=== PATIENT | female | born 1950 | race Two or more races ===

== ENCOUNTER 2021-04-09 14:26 | Inpatient (IN) | payer MEDICARE ==
[~2021-04-09] VITALS: Ht 160 cm; Wt 126.5 kg
[2021-04-09 16:04] LABS: Basophils # (auto) 0.1 10 ^3/uL (0-0.2); Eosinophils # (auto) 0 10 ^3/uL (0-0.8); Eosinophils % (auto) 0.2 % (0.0-7.0); Mean Corpuscular Volume 79.6 fL (80.0-100.0); Monocytes # (auto) 0.2 10 ^3/uL (0-1.3); Neutrophils # (auto) 6.5 10 ^3/uL (1.6-8.6)
[2021-04-09 16:05] LABS: Basophils % (auto) 0.7 % (0.0-2.0); Hematocrit 40.8 % (36.0-46.0); Hemoglobin 13.1 g/dL (12.2-16.2); Lymphocytes # (auto) 0.9 10 ^3/uL (0.4-5.4); Lymphocytes % (auto) 12.2 % (10.0-50.0); Mean Corpuscular Hemoglobin 25.6 pg (28.0-32.0); Mean Corpuscular Hgb Conc. 32.2 g/dL (32.0-36.0); Monocytes % (auto) 2.6 % (0.0-12.0); Neutrophils % (auto) 84.3 % (37.0-80.0); Red Blood Cells 5.13 10^6/uL (4.0-5.20); Red Cell Distribution Width 14.9 % (11.8-14.3); White Blood Cell 7.8 10^3/uL (4.4-10.8)
[2021-04-09 16:20] LABS: Albumin 3.3 g/dL (3.4-5.0); BUN/Creatinine Ratio 15.6; Calcium 9.3 mg/dL (8.5-10.1); Potassium 3.9 mmol/L (3.5-5.1)
[2021-04-09 16:25] LABS: Bilirubin, Total 1.1 mg/dL (0.2-1.0); Total Protein 7.4 g/dL (6.4-8.2)
[2021-04-09 20:12] LABS: Urine Bacteria NONE SEEN /hpf (None Seen); Urine Blood Negative /uL (Negative); Urine Specific Gravity 1.012 (1.001-1.035); Urine WBC 1 /hpf (0 - 5)
[2021-04-09] MEDS ORDERED: ALPRAZolam 0.25 MG TAB PO ONE (23:30)
[2021-04-10] MEDS ORDERED: NITROGLYCERIN 0.4 MG SL TAB SL PRN (03:15)
[2021-04-10] MEDS ORDERED: ONDANSETRON HCL 4 MG/2 ML VIAL IV PRN (03:15)
[2021-04-10] MEDS ORDERED: MORPHINE SULFATE INJECTION 2 MG/ML SYRG IV PRN (03:15)
[2021-04-10] MEDS ORDERED: DOCUSATE SOD 100 MG CAP PO PRN (03:15)
[2021-04-10] MEDS ORDERED: MORPHINE SULFATE 4 MG/ML SYR/VIAL IV PRN (03:15)
[2021-04-10] MEDS ORDERED: ACETAMINOPHEN 325 MG TAB PO PRN (03:15)
[2021-04-10 04:45] VITALS: BP 139/71
[2021-04-10 05:00] VITALS: BP 139/71
[2021-04-10] MEDS ORDERED: HYDR25TA4 PO (05:56)
[2021-04-10] MEDS ORDERED: PAR20T PO (05:56)
[2021-04-10] MEDS ORDERED: HYDR-4072 PO (05:56)
[2021-04-10] MEDS ORDERED: MELO1TAB73 PO (05:56)
[2021-04-10] MEDS ORDERED: LEVO125T7 PO (05:56)
[2021-04-10] MEDS ORDERED: PREG50CA PO (05:56)
[2021-04-10] MEDS ORDERED: LISI20TA28 PO (05:56)
[2021-04-10] MEDS ORDERED: ATO40T PO (05:56)
[2021-04-10] MEDS ORDERED: METH750T22 PO (05:56)
[2021-04-10] MEDS ORDERED: FLUT44AE IN (05:57)
[2021-04-10] MEDS ORDERED: NAPR-759 PO (05:57)
[2021-04-10] MEDS ORDERED: ALBU108A5 IN (05:57)
[2021-04-10] MEDS ORDERED: HYDR-4622 PO (05:57)
[2021-04-10 08:00] VITALS: BP 126/75
[2021-04-10] MEDS: ENOXAPARIN SOD 40 MG/0.4 ML SYRINGE SC SCH (08:45)
[2021-04-10] MEDS: ASPirin 81 mg TAB PO SCH (08:45)
[2021-04-10] MEDS: FAMOTIDINE (10MG/ML) 2ML VL IV SCH (08:45)
[2021-04-10 09:13] LABS: Basophils # (auto) 0.1 10 ^3/uL (0-0.2); Basophils % (auto) 1.4 % (0.0-2.0); Eosinophils # (auto) 0.1 10 ^3/uL (0-0.8); Hematocrit 38.4 % (36.0-46.0); Hemoglobin 12.4 g/dL (12.2-16.2); Lymphocytes # (auto) 2.4 10 ^3/uL (0.4-5.4); Lymphocytes % (auto) 26.1 % (10.0-50.0); Mean Corpuscular Hemoglobin 25.8 pg (28.0-32.0); Mean Corpuscular Hgb Conc. 32.4 g/dL (32.0-36.0); Mean Corpuscular Volume 79.5 fL (80.0-100.0); Monocytes # (auto) 0.7 10 ^3/uL (0-1.3); Monocytes % (auto) 7.6 % (0.0-12.0); Neutrophils # (auto) 5.8 10 ^3/uL (1.6-8.6); Neutrophils % (auto) 63.9 % (37.0-80.0); Red Blood Cells 4.83 10^6/uL (4.0-5.20); White Blood Cell 9.1 10^3/uL (4.4-10.8)
[2021-04-10 09:28] LABS: Calcium 8.8 mg/dL (8.5-10.1); Potassium 3.4 mmol/L (3.5-5.1)
[2021-04-10 09:34] LABS: BUN/Creatinine Ratio 16.3; Bilirubin, Total 0.8 mg/dL (0.2-1.0); Total Protein 6.8 g/dL (6.4-8.2)
[2021-04-10 12:00] VITALS: BP 114/58
[2021-04-10 16:00] VITALS: BP 165/84
[2021-04-10] MEDS ORDERED: LISINOPRIL 20 MG TAB PO ONE (16:30)
[2021-04-10] MEDS ORDERED: hydrALAZINE HCL 20 MG/ML VL IV PRN (16:30)
[2021-04-10] MEDS: HYDROcodone-ACET 5/325MG TAB PO PRN ×2 (16:38→20:56)
[2021-04-10] MEDS: ATORVASTATIN 20 MG TAB PO SCH (20:56)
[2021-04-10 22:00] VITALS: BP 117/64
[2021-04-11 05:00] VITALS: BP 125/81
[2021-04-11] MEDS: HYDROcodone-ACET 5/325MG TAB PO PRN ×3 (05:54→21:42)
[2021-04-11 06:07] LABS: Basophils # (auto) 0.1 10 ^3/uL (0-0.2); Eosinophils # (auto) 0.2 10 ^3/uL (0-0.8); Mean Corpuscular Hgb Conc. 32.6 g/dL (32.0-36.0); Monocytes # (auto) 0.6 10 ^3/uL (0-1.3); Neutrophils # (auto) 5.1 10 ^3/uL (1.6-8.6)
[2021-04-11 06:09] LABS: Basophils % (auto) 1.3 % (0.0-2.0); Eosinophils % (auto) 2.2 % (0.0-7.0); Hematocrit 39.8 % (36.0-46.0); Lymphocytes # (auto) 2.2 10 ^3/uL (0.4-5.4); Lymphocytes % (auto) 27.3 % (10.0-50.0); Mean Corpuscular Hemoglobin 25.7 pg (28.0-32.0); Monocytes % (auto) 7.5 % (0.0-12.0); Neutrophils % (auto) 61.7 % (37.0-80.0); Red Blood Cells 5.03 10^6/uL (4.0-5.20); Red Cell Distribution Width 14.7 % (11.8-14.3); White Blood Cell 8.2 10^3/uL (4.4-10.8)
[2021-04-11 06:24] LABS: Calcium 8.9 mg/dL (8.5-10.1); Potassium 4.1 mmol/L (3.5-5.1)
[2021-04-11 06:30] LABS: Albumin 3.3 g/dL (3.4-5.0); Bilirubin, Total 1.2 mg/dL (0.2-1.0); Total Protein 6.6 g/dL (6.4-8.2)
[2021-04-11 08:00] VITALS: BP 134/77
[2021-04-11] MEDS: ENOXAPARIN SOD 40 MG/0.4 ML SYRINGE SC SCH (11:12)
[2021-04-11] MEDS: ASPirin 81 mg TAB PO SCH (11:12)
[2021-04-11] MEDS: FAMOTIDINE (10MG/ML) 2ML VL IV SCH (11:12)
[2021-04-11] MEDS: LISINOPRIL 20 MG TAB PO SCH (11:13)
[2021-04-11 12:00] VITALS: BP 121/67
[2021-04-11] MEDS ORDERED: ALPRAZolam 0.25 MG TAB PO PRN (12:00)
[2021-04-11 16:00] VITALS: BP 100/54
[2021-04-11] MEDS ORDERED: AZITHROMYCIN 250 MG TAB PO ONE (17:00)
[2021-04-11 18:58] LABS: Cholesterol 164 mg/dL (< 200); HDL Cholesterol 47 mg/dL (40-59); LDL Cholesterol 92 mg/dL (< 100); Triglycerides 190 mg/dL (< 150)
[2021-04-11] MEDS: ATORVASTATIN 20 MG TAB PO SCH (21:22)
[2021-04-11] MEDS: COLCHICINE 0.6 MG CAP PO SCH (21:22)
[2021-04-11 22:29] VITALS: BP 114/61
[2021-04-12 05:48] VITALS: BP 114/64
[2021-04-12 06:57] LABS: BUN/Creatinine Ratio 24.4; Calcium 8.5 mg/dL (8.5-10.1); Magnesium 1.8 mg/dL (1.6-2.6)
[2021-04-12 08:00] VITALS: BP 134/77
[2021-04-12 09:00] VITALS: BP 123/64
[2021-04-12] MEDS: AZITHROMYCIN 250 MG TAB PO SCH (09:07)
[2021-04-12] MEDS: COLCHICINE 0.6 MG CAP PO SCH ×2 (09:07→22:05)
[2021-04-12] MEDS: ASPirin 81 mg TAB PO SCH (09:07)
[2021-04-12] MEDS: ENOXAPARIN SOD 40 MG/0.4 ML SYRINGE SC SCH (09:08)
[2021-04-12] MEDS: LISINOPRIL 20 MG TAB PO SCH (09:08)
[2021-04-12] MEDS: HYDROcodone-ACET 5/325MG TAB PO PRN ×3 (09:09→22:06)
[2021-04-12] MEDS ORDERED: REGADENOSON 0.4 MG/5 ML SYRG IV ONE (09:15)
[2021-04-12 16:51] VITALS: BP 121/70
[2021-04-12] MEDS ORDERED: ERGOCALCIFEROL 50,000 UNIT(1.25MG) CAP PO SCH (18:30)
[2021-04-12 20:00] VITALS: BP 101/72
[2021-04-12] MEDS: ATORVASTATIN 20 MG TAB PO SCH (22:05)
[2021-04-12] MEDS: ONDANSETRON HCL 4 MG/2 ML VIAL IV PRN (22:06)
[2021-04-13 05:00] VITALS: BP 102/59
[2021-04-13 09:00] VITALS: BP 109/62
[2021-04-13] MEDS: ASPirin 81 mg TAB PO SCH (10:07)
[2021-04-13] MEDS: ENOXAPARIN SOD 40 MG/0.4 ML SYRINGE SC SCH (10:08)
[2021-04-13] MEDS: COLCHICINE 0.6 MG CAP PO SCH ×2 (10:08→21:35)
[2021-04-13] MEDS: LISINOPRIL 20 MG TAB PO SCH (10:08)
[2021-04-13] MEDS: AZITHROMYCIN 250 MG TAB PO SCH (10:08)
[2021-04-13 13:00] VITALS: BP 125/74
[2021-04-13] MEDS: ONDANSETRON HCL 4 MG/2 ML VIAL IV PRN ×2 (13:30→14:18)
[2021-04-13] MEDS ORDERED: ERGO1CAP23 PO (14:39)
[2021-04-13 16:52] VITALS: BP 119/65
[2021-04-13] MEDS: ATORVASTATIN 20 MG TAB PO SCH (21:35)
[2021-04-13 22:00] VITALS: BP 118/71
[2021-04-14 05:00] VITALS: BP 132/67
[2021-04-14 06:29] LABS: Potassium 4.1 mmol/L (3.5-5.1)
[2021-04-14 06:43] LABS: BUN/Creatinine Ratio 25.3
[2021-04-14 06:44] LABS: Calcium 8.7 mg/dL (8.5-10.1)
[2021-04-14 09:00] VITALS: BP 135/70
[2021-04-14] MEDS: ASPirin 81 mg TAB PO SCH (09:01)
[2021-04-14] MEDS: AZITHROMYCIN 250 MG TAB PO SCH (09:02)
[2021-04-14] MEDS: COLCHICINE 0.6 MG CAP PO SCH (09:03)
[2021-04-14] MEDS: LISINOPRIL 20 MG TAB PO SCH (09:03)
[2021-04-14] MEDS: ENOXAPARIN SOD 40 MG/0.4 ML SYRINGE SC SCH (09:06)
[2021-04-14 12:39] VITALS: BP 139/61
[2021-04-14] MEDS ORDERED: LOPERAMIDE 1 mg/7.5ml ORAL soln PO ONE (15:45)
[2021-04-14 16:21] VITALS: BP 129/55
[2021-04-14 17:35] VITALS: BP 135/70
[2021-04-15] MEDS ORDERED: LEVOTHYROXINE SODIUM 50 MCG TAB PO SCH (07:00)
[2021-04-15] MEDS ORDERED: LEVOTHYROXINE SODIUM 25 MCG TAB PO SCH (07:00)
== END 2021-04-14 18:20 | disposition home or self-care (01) | DRG 202 ==
LOC: ER 14:26 → TELE 04-10 03:01 → TELE-WESTW 04-10 04:40
PROVIDERS: ADMIT Nurse Practitioner Family; ATTEND Internal Medicine
DX: J40 Bronchitis, not specified as acute or chronic (principal); Z68.42 Body mass index [BMI] 45.0-49.9, adult; I31.3 Pericardial effusion (noninflammatory); K62.5 Hemorrhage of anus and rectum; E66.01 Morbid (severe) obesity due to excess calories; I10 Essential (primary) hypertension; E55.9 Vitamin D deficiency, unspecified; Z20.822 Contact with and (suspected) exposure to COVID-19; E11.9 Type 2 diabetes mellitus without complications; M79.7 Fibromyalgia; M19.90 Unspecified osteoarthritis, unspecified site; Z88.8 Allergy status to other drugs, medicaments and biological substances
CPT/HCPCS: 36415; 71045; 78452; 80048; 80053; 80061; 81001; 82270; 82306; 83036; 83735; 83880; 84439; 84443; 84484; 85025; 85652; 87426; 87493; 87804; 93005; 93017; 93306; 96372; 96374; G0378; J2405; J3490

== ENCOUNTER 2024-11-04 21:22 | Inpatient (IN) | payer MEDICARE ==
[~2024-11-04] VITALS: Ht 152.4 cm; Wt 114.0 kg
[~2024-11-04 21:22] MED LIST: ALBU108A5 IN; ATOR-507 PO; ERGO1CAP23 PO; FLUT44AE IN; HYDR-4072 PO; HYDR-4604 PO; HYDR25TA4 PO; LEVO125T7 PO; LISI20TA56 PO; MELO7.5T7 PO; METH-1182 PO; NAPR-759 PO; PAR20T PO; PREG50CA PO
[2024-11-04] MEDS: KETOROLAC TROMETH 30 MG/ML 1ML VIAL IV ONE (22:30)
[2024-11-04] MEDS: ACETAMINOPHEN IV 1000 MG/100ML (10MG/ML) IV ONE (22:30)
--- NOTE | 2024-11-04 22:42 | ED.PDOC ---
Musculoskeletal HPI Comments 74 year old female with a Hx of osteopenia and osteoporosis was BIBA for the c/c of a Mechanical Fall injury. Pt states that she was helping her [facility] when she tripped over his walker and fell on top of her right knee. Pt states that she felt her knee go "in and crack". Pt notes of no alleviating factors at this time, but notes of a worsening factor of movement. No other associated symptoms, modifiers, recent injuries or sick contacts present at this time. Chief Complaint: Fall Injury Time Seen by MD: 22:36 Reviewed Notes: Nurses Notes, Welder Assembler Notes, Medications, Allergies Allergies: Coded Allergies: Baclofen (Verified Allergy, Unknown, 04/09/21) Metformin (Verified Allergy, Unknown, 04/09/21) Home Meds Reported Medications Naproxen Sodium (ALEVE ARTHRITIS) 220 Mg Tab, 220 MG PO DAILYP PRN for PAIN SCALE 4-6 OR TEMP>100.4, TAB 04/10/21 Hydrocortisone Base (Hydrocortisone) 5 Mg Tab, 5 MG PO BID, TAB 04/10/21 Albuterol Sulfate (Albuterol Sulfate Hfa) 108 Mcg/Act Aer, 108 MCG IN PRN PRN for SHORTNESS OF BREATH, AER 04/10/21 Hydrocodone-Acetaminophen (Hydrocodone/Acetaminophen 10-325 mg) 1 Tab Tab, 1 TAB PO BID PRN for PAIN SCALE 7 THRU 10, TAB 04/10/21 Levothyroxine Sodium (Levothyroxine Sodium) 125 Mcg Tab, 125 MCG PO QAM for 30 Days, MCG 04/10/21 Hydrochlorothiazide (Hydrochlorothiazide) 25 Mg Tab, 1 TAB PO DAILY, #30 TAB 5 Refills 04/10/21 Lisinopril (Lisinopril) 20 Mg Tab, 20 MG PO DAILY for 30 Days, MG 04/10/21 Information Source: Patient, Emergency Med Personnel Mode of Arrival: EMS Location: Right Extremity Location: Knee Timing: Hours Prehospital treatment: Other ([facility]) Severity: Moderate Able to Move Extremity: No Bear Weight: No Pain: Severe Hand Dominance: Right Mechanism: Blunt Trauma, Compression Circumstances: Fall Onset of Symptoms: After Trauma Symptoms: Swelling, Pain, Erythema, Warmth DVT Risk Factors: NONE Last Tetanus: Unknown Associated signs and symptoms: Knee pain Vital Signs Vital Signs Date Time Temp Pulse Resp B/P (MAP) Pulse Ox O2 Delivery O2 Flow Rate FiO2 11/05/24 04:30 78 18 128/72 11/05/24 04:13 98.1 96 98.1 11/05/24 02:06 Room Air* 0 21 Physical Exam General: Awake, alert and oriented. No acute distress. Obese Skin: Skin in warm, dry and intact. Appropriate color for ethnicity. HEENT: The head is normocephalic and atraumatic. Conjunctivae are clear without exudates or hemorrhage. Sclera is non-icteric. EOM are intact. No signs of nystagmus. Eyelids are normal in appearance without swelling or lesions. Oral mucosa is pink and moist Neck: The neck is supple with normal range of motion. No JVD. Cardiac: Heart rate and rhythm are normal. No murmurs, gallops, or rubs are auscultated. Respiratory: No signs of respiratory distress. Lung sounds are clear in all lobes bilaterally without rales, rhonchi, or wheezes. Abdominal: Abdomen is soft, non-tender without distention, guarding or rigidity. Bowel sounds are present and normoactive in all four quadrants. Extremities: Deformity and Swelling the right knee. Pain upon palpitation . Good distal pulse and sensation. Neurological: The patient is awake, alert and oriented to person, place, and time with normal speech. Speech is clear. There is no facial asymmetry. Psychiatric: Appropriate mood and affect. Good judgement and insight. Review of Systems: REVIEW OF SYSTEMS: No fever, no chills, or fatigue HEENT: No sore throat, no earache, no congestion, no neck pain. Cardiac: No chest pain. No palpitations. Lungs: No shortness of breath, no cough. GI: No nausea, no vomiting, no diarrhea, no constipation, no abdominal pain : No dysuria, frequency, or urgency. No hematuria. Musculoskeletal: No joint pain , no joint swelling, no extremity edema. Right knee swelling with pain and surrounding erythema Skin: No rash, no itching. Neuro: No headache, no dizziness, no weakness Past Medical History PAST MEDICAL HISTORY: HTN Surgical History: Denies all surgeries CORE LOADER History: No Pertinent CORE LOADER History Family History Family History: Reviewed,noncontributory to illness, No family hx of Cancer, No family hx of DM, No family hx of Heart geovany, No family hx of HTN, No family hx ofKidney geovany, No family hx of Liver geovany, No family hx of Lung geovany, No family hx of Stroke Social History Smoker: Non-Smoker Alcohol: Denies ETOH Use Drugs: Denies Drug Use Lives In: Home Was a procedure done? Was a procedure done?: No Differential Diagnosis EXT Differential Diagnosis: Cellulitis, Deep Vein Thrombosis, Compartment Syndrome, Fracture, Sprain, Dislocation, Laceration, Contusion, Strain, Neurovascular injury, Arthritis, Other X-Ray, Labs, Meds, VS Vital Signs Date Time Temp Pulse Resp B/P (MAP) Pulse Ox O2 Delivery O2 Flow Rate FiO2 11/05/24 04:30 78 18 128/72 11/05/24 04:13 98.1 78 18 127/82 (97) 96 98.1 11/05/24 04:00 64 11/05/24 04:00 76 18 132/87 11/05/24 02:06 98.1 82 20 129/54 (79) 96 98.1 11/05/24 02:06 68 20 96 Room Air* 0 21 11/05/24 00:00 68 11/04/24 21:34 97.9 76 20 108/58 (75) 94 97.9 Lab Test 11/05/24 03:47 11/05/24 03:40 11/05/24 02:45 Range/Units Prothrombin Time 10.3 9.3-11.8 sec Prothrombin Time INR 0.97 0.9-1.15 Activated Partial Thromboplast Time 22.5 L 24.5-34.5 SEC White Blood Count 11.0 H 4.4-10.8 10^3/uL Red Blood Count 4.10 4.0-5.20 10^6/uL Hemoglobin 11.3 L 12.2-16.2 g/dL Hematocrit 34.2 L 36.0-46.0 % Mean Corpuscular Volume 83.4 80.0-100.0 fL Mean Corpuscular Hemoglobin 27.5 L 28.0-32.0 pg Mean Corpuscular Hemoglobin Concent 33.0 32.0-36.0 g/dL Red Cell Distribution Width 14.7 H 11.8-14.3 % Platelet Count 235 140-450 10^3/uL Mean Platelet Volume 7.2 6.9-10.8 fL Neutrophils (%) (Auto) 73.5 37.0-80.0 % Lymphocytes (%) (Auto) 18.3 10.0-50.0 % Monocytes (%) (Auto) 7.0 0.0-12.0 % Eosinophils (%) (Auto) 0.6 0.0-7.0 % Basophils (%) (Auto) 0.6 0.0-2.0 % Neutrophils # (Auto) 8.1 1.6-8.6 10 ^3/uL Lymphocytes # (Auto) 2.0 0.4-5.4 10 ^3/uL Monocytes # (Auto) 0.8 0-1.3 10 ^3/uL Eosinophils # (Auto) 0.1 0-0.8 10 ^3/uL Basophils # (Auto) 0.1 0-0.2 10 ^3/uL Nucleated Red Blood Cells 0.0 % Sodium Level 142 136-145 mmol/L Potassium Level 4.0 3.5-5.1 mmol/L Chloride Level 108 H 98-107 mmol/L Carbon Dioxide Level 26 20-31 mmol/L Anion Gap 8 5-15 Blood Urea Nitrogen 26 H 9-23 mg/dL Creatinine 1.04 H 0.550-1.02 mg/dL Glomerular Filtration Rate Calc 57 >90 mL/min BUN/Creatinine Ratio 25.0 H 10.0-20.0 Serum Glucose 107 H 74-106 mg/dL Calcium Level 8.6 L 8.7-10.4 mg/dL Urine Color Yellow Yellow Urine Clarity Clear Clear Urine pH 5.5 5.0-9.0 Urine Specific [place] 1.027 1.001-1.035 Urine Protein Negative Negative Urine Ketones Negative Negative Urine Blood Negative Negative /uL Urine Nitrite Negative Negative Urine Bilirubin Negative Negative Urine Urobilinogen 2 H Negative mg/dL Urine Leukocyte Esterase Negative Negative /uL Urine RBC None seen 0 - 4 /hpf Urine Microscopic WBC 1 0-5 /HPF Urine Squamous Epithelial Cells Few <5 /hpf Urine Bacteria None seen None Seen /hpf Urine Hyaline Casts Few 0 - 2 /lpf Urine Mucus Few None Seen Urine Glucose Normal Normal mg/dL Current Medications Medications (Trade) Dose Ordered Sig/Tex Route Start Time Stop Time Status Last Admin Morphine Sulfate 4 mg ONCE ONCE IV 11/05/24 03:30 11/05/24 03:31 DC 11/05/24 04:00 Ondansetron HCl (Zofran) 4 mg ONCE ONCE IV 11/05/24 03:15 11/05/24 03:24 DC 11/05/24 04:00 Time of 1ST Reevaluation: 23:07 Reevaluation 1ST: Unchanged Patient Education/Counseling: Need For Follow Up Family Education/Counseling: No Family Present Departure 1 Departure Time of Disposition: 03:11 Impression: Primary Impression: Femur fracture Additional Impression: Femur fracture, right Disposition: 09 ADMITTED INPATIENT Condition: Stable Comments 74-year-old female with displaced right distal femur fracture. Patient placed in splint. Patient admitted to hospitalist service for further treatment, evaluation and monitoring. Critical Care Note Critical Care Time?: No Stability Stability form required: No Heart Score Heart Score: Heart Score Response (Comments) Value History N/A 0 EKG N/A 0 Age N/A 0 Risk Factors N/A 0 Troponin N/A 0 Total 0 I personally scribed for MIKAL ROMERO MD ([email or web address]) on 11/04/24 at 22:42. Electronically submitted by Saul Barcenas ([email or web address]). I personally scribed for MIKAL ROMERO MD ([email or web address]) on 11/05/24 at 02:10. Electronically submitted by Saul Barcenas ([email or web address]). MIKAL ROMERO MD Nov 04, 2024 22:42
[2024-11-05] VITALS (11 sets, daily range): BP systolic 109–145; BP diastolic 60–85; PULSE 66–76; RESP 14–20; TEMP 97.4–98.6; O2SAT 92–98
--- NOTE | 2024-11-05 02:48 | DVH ---
CLINICAL INDICATION: fall, knee injury TECHNIQUE: XY R KNEE 2V XRAY Comparison: None FINDINGS/IMPRESSION: : Significantly displaced and comminuted fracture of the distal femoral metadiaphysis. Diffuse soft tissue swelling. Degenerative changes noted, consistent with sequelae of osteoarthritis.
[2024-11-05 03:58] LABS: Urine Bacteria None Seen /hpf (None Seen)
[2024-11-05] MEDS: MORPHINE SULFATE 4 MG/ML SYR/VIAL IV ONE (04:00)
[2024-11-05] MEDS: ONDANSETRON HCL 4 MG/2 ML VIAL IV ONE (04:00)
[2024-11-05 04:05] LABS: Basophils # (auto) 0.1 10 ^3/uL (0-0.2); Basophils % (auto) 0.6 % (0.0-2.0); Eosinophils # (auto) 0.1 10 ^3/uL (0-0.8); Eosinophils % (auto) 0.6 % (0.0-7.0); Hematocrit 34.2 % (36.0-46.0); Hemoglobin 11.3 g/dL (12.2-16.2); Lymphocytes % (auto) 18.3 % (10.0-50.0); Mean Corpuscular Hemoglobin 27.5 pg (28.0-32.0); Mean Corpuscular Volume 83.4 fL (80.0-100.0); Monocytes # (auto) 0.8 10 ^3/uL (0-1.3); Neutrophils # (auto) 8.1 10 ^3/uL (1.6-8.6); Neutrophils % (auto) 73.5 % (37.0-80.0); Platelet Count (auto) 235 10^3/uL (140-450); Red Cell Distribution Width 14.7 % (11.8-14.3)
[2024-11-05 04:11] LABS: Urine Blood Negative /uL (Negative); Urine Clarity Clear (Clear); Urine Color Yellow (Yellow); Urine Hyaline Cast FEW /lpf (0 - 2); Urine Mucus FEW (None Seen); Urine Protein, UAD Negative (Negative); Urine Specific Gravity 1.027 (1.001-1.035); Urine Squamous Epithelial Cell FEW /hpf (<5); Urine Urobilinogen 2 mg/dL (Negative); Urine WBC 1 /HPF (0-5); Urine pH 5.5 (5.0-9.0)
[2024-11-05 04:25] LABS: Sodium 142 mmol/L (136-145)
[2024-11-05 04:26] LABS: Anion Gap 8 (5-15); Carbon Dioxide 26 mmol/L (20-31)
[2024-11-05 04:31] LABS: Blood Urea Nitrogen 26 mg/dL (9-23); Calcium 8.6 mg/dL (8.7-10.4); Chloride 108 mmol/L (98-107); Glucose 107 mg/dL (74-106)
[2024-11-05] MEDS ORDERED: ALBUTEROL SULF 2.5 MG/0.5ML(0.5%) NEB SOLN NEB PRN (05:00)
[2024-11-05] MEDS ORDERED: ACETAMINOPHEN 325 MG TAB PO PRN (05:00)
--- NOTE | 2024-11-05 05:05 | DVHHP2 ---
History of Present Illness Reason for Visit: Right knee pain History of Present Illness 74-year-old female presents for evaluation of right knee pain. Patient reports having a mechanical fall yesterday when she tripped over a walker and fell onto her right knee. States not being able to bear weight on her right leg. Denies head trauma or loss of consciousness. Past Medical History Hypertension Past Surgical History None Family History Noncontributory Smoke: No ALCOHOL: none Drugs: None Lives: with Family Review of Systems Review of Systems Review of systems are currently negative otherwise addressed in HPI. Allergies: Coded Allergies: Baclofen (Verified Allergy, Unknown, 04/09/21) Metformin (Verified Allergy, Unknown, 04/09/21) Exam Vital Signs Vital Signs Date Time Temp Pulse Resp B/P (MAP) Pulse Ox O2 Delivery O2 Flow Rate FiO2 11/05/24 04:30 78 18 128/72 11/05/24 04:13 98.1 96 98.1 11/05/24 02:06 Room Air* 0 21 Exam Gen: 74-year-old female in mild distress Skin: Warm, dry, normal color and texture, no rash. HEENT: Normocephalic atraumatic, mucous membranes moist and pink. Neck: Cervical and supraclavicular nodes normal without enlargement, trachea is midline, thyroid gland is normal without masses. Pulmonary: Clear to auscultation and percussion bilaterally. Cardiac: Regular rate and rhythm. No murmur Abdomen: Soft, nontender, nondistended, bowel sounds present all 4 quadrants, no guarding, no rigidity, no organomegaly. Extremities: No cyanosis, clubbing, right lower extremity with limited range of motion Neuro: Cranial nerves II through XII grossly intact, normal affect and speech, no focal motor deficits. Labs/Xrays ORDERING PHYSICIAN: MIKAL ROMERO MD PROCEDURE(s): RKNE2 - R KNEE 2V XRAY REASON: fall, knee injury ORDER NUMBER(s): [id number], ACCESSION NUMBER(s): [id number] CLINICAL INDICATION: fall, knee injury TECHNIQUE: XY R KNEE 2V XRAY Comparison: None FINDINGS/IMPRESSION: : Significantly displaced and comminuted fracture of the distal femoral metadiaphysis. Diffuse soft tissue swelling. Degenerative changes noted, consistent with sequelae of osteoarthritis. Labs Test 11/05/24 03:40 11/05/24 02:45 Range/Units White Blood Count 11.0 H 4.4-10.8 10^3/uL Red Blood Count 4.10 4.0-5.20 10^6/uL Hemoglobin 11.3 L 12.2-16.2 g/dL Hematocrit 34.2 L 36.0-46.0 % Mean Corpuscular Volume 83.4 80.0-100.0 fL Mean Corpuscular Hemoglobin 27.5 L 28.0-32.0 pg Mean Corpuscular Hemoglobin Concent 33.0 32.0-36.0 g/dL Red Cell Distribution Width 14.7 H 11.8-14.3 % Platelet Count 235 140-450 10^3/uL Mean Platelet Volume 7.2 6.9-10.8 fL Neutrophils (%) (Auto) 73.5 37.0-80.0 % Lymphocytes (%) (Auto) 18.3 10.0-50.0 % Monocytes (%) (Auto) 7.0 0.0-12.0 % Eosinophils (%) (Auto) 0.6 0.0-7.0 % Basophils (%) (Auto) 0.6 0.0-2.0 % Neutrophils # (Auto) 8.1 1.6-8.6 10 ^3/uL Lymphocytes # (Auto) 2.0 0.4-5.4 10 ^3/uL Monocytes # (Auto) 0.8 0-1.3 10 ^3/uL Eosinophils # (Auto) 0.1 0-0.8 10 ^3/uL Basophils # (Auto) 0.1 0-0.2 10 ^3/uL Nucleated Red Blood Cells 0.0 % Sodium Level 142 136-145 mmol/L Potassium Level 4.0 3.5-5.1 mmol/L Chloride Level 108 H 98-107 mmol/L Carbon Dioxide Level 26 20-31 mmol/L Anion Gap 8 5-15 Blood Urea Nitrogen 26 H 9-23 mg/dL Creatinine 1.04 H 0.550-1.02 mg/dL Glomerular Filtration Rate Calc 57 >90 mL/min BUN/Creatinine Ratio 25.0 H 10.0-20.0 Serum Glucose 107 H 74-106 mg/dL Calcium Level 8.6 L 8.7-10.4 mg/dL Urine Color Yellow Yellow Urine Clarity Clear Clear Urine pH 5.5 5.0-9.0 Urine Specific [place] 1.027 1.001-1.035 Urine Protein Negative Negative Urine Ketones Negative Negative Urine Blood Negative Negative /uL Urine Nitrite Negative Negative Urine Bilirubin Negative Negative Urine Urobilinogen 2 H Negative mg/dL Urine Leukocyte Esterase Negative Negative /uL Urine RBC None seen 0 - 4 /hpf Urine Microscopic WBC 1 0-5 /HPF Urine Squamous Epithelial Cells Few <5 /hpf Urine Bacteria None seen None Seen /hpf Urine Hyaline Casts Few 0 - 2 /lpf Urine Mucus Few None Seen Urine Glucose Normal Normal mg/dL Assessment/Plan Assessment/Plan Assessment Right femur fracture Acute kidney injury Hypertension Plan Admit the patient to [facility] to the hospitalist Orthopedic consultation Pain management Continue treatment per orders. Plan discussed with: Patient Date of Service: Nov 05, 2024 Billing Provider: ALVA SHEFFIELD Common Visit Codes: [id number] INP/OBS CARE (MOD) ALVA SHEFFIELD Nov 05, 2024 05:05
[2024-11-05] MEDS: MORPHINE SULFATE 4 MG/ML SYR/VIAL IV PRN (05:33)
[2024-11-05] MEDS: LEVOTHYROXINE SODIUM 50 MCG TAB PO SCH (05:33)
[2024-11-05 05:52] LABS: INR 0.97 (0.9-1.15); Partial Thromboplastin Time 22.5 SEC (24.5-34.5); Prothrombin Time 10.3 sec (9.3-11.8)
[2024-11-05] MEDS: LISINOPRIL 20 MG TAB PO SCH (09:44)
[2024-11-05] MEDS: HYDROcodone-ACET 5/325MG TAB PO PRN (09:44)
--- NOTE | 2024-11-05 19:39 | DVHINCON2 ---
Consult Note Consult Consult Note Requesting Service: Hospitalist Attending Orthopedic Surgeon: Dr. Manjit Le Diagnosis: Right Comminuted Distal Femur Fracture Reason for Consult: Evaluation and management of right distal femur fracture --- HISTORY OF PRESENT ILLNESS: 74 yo female who presented to the Emergency Department yesterday following a ground-level fall at home. Patient reported immediate right knee pain and was unable to bear weight. Initial imaging revealed a distal femur fracture. A posterior long leg splint was applied, and the patient was admitted for orthoped ic evaluation and management. On interview today, the patient reports her pain is well-controlled with pain medication. She denies numbness, tingling, or other acute complaints. No issues reported with splint placement. No other joint pain reported --- PAST MEDICAL HISTORY: Osteoporosis (currently on Fosamax) Chronic Pain Syndrome HTN Denies any history of cardiac disease Denies pulmonary disease Denies smoking history Not on any blood thinners --- PHYSICAL EXAMINATION: General: Alert and oriented, resting in bed comfortably Right Lower Extremity: Posterior long leg splint in place Moderate swelling over the distal femur/knee area Significant tenderness to palpation distal thigh/knee Skin intact, no open lesions Neurovascular: Able to wiggle toes. Sensation intact to light touch. Capillary refill <2 sec. Dorsalis pedis and posterior tibial pulses palpable --- IMAGING: X-ray Right knee: significantly displaced and comminuted fracture of the distal femoral metadiaphysis. CT Right Femur ([STAT Ordered Today]): Pending for further surgical planning --- ASSESSMENT: Comminuted distal femur fracture, closed, right side. Fracture pattern and patient functional status require operative fixation. --- PLAN: 1. Surgical management recommended: Open Reduction Internal Fixation (ORIF) of the right distal femur 2. Patient NPO midnight in anticipation of surgical intervention, ordered placed by bedside nurse 3. Informed consent obtained and signed for ORIF Right Distal Femur, order placed by bedside nurse 4. Dr. Manjit Le to perform surgery, tentatively scheduled for tomorrow afternoon 5. STAT CT scan ordered for operative planning, Bedside Nurse to have this completed before afternoon tommorow 6. Hospitalist team to optimize and clear patient for surgery 7. Pain management to continue; no changes to splint at this time 8. All questions from patient and family (son) were addressed Plan discussed with: Patient, Son, Other (bedside nurse) Visit Coding Surgery Date of Service if different f: Nov 05, 2024 Billing Provider: NIKI HALL Surgery Visit Codes: [id number] - INP CONSULT <55 MIN NIKI HALL Nov 05, 2024 19:38
[2024-11-05] MEDS: ATORVASTATIN 20 MG TAB PO SCH (21:50)
[2024-11-05] MEDS: ATORVASTATIN 20 MG TAB ONE (21:51)
[2024-11-06] VITALS (9 sets, daily range): BP systolic 124–152; BP diastolic 76–84; PULSE 68–97; RESP 16–20; TEMP 97–99.2; O2SAT 95–97
[2024-11-06 06:46] LABS: Chloride 102 mmol/L (98-107); Potassium 4.1 mmol/L (3.5-5.1)
[2024-11-06 06:47] LABS: Anion Gap 7 (5-15); Carbon Dioxide 26 mmol/L (20-31)
[2024-11-06 06:48] LABS: Calcium 8.7 mg/dL (8.7-10.4); Sodium 135 mmol/L (136-145)
[2024-11-06 06:52] LABS: BUN/Creatinine Ratio 26.9 (10.0-20.0); Blood Urea Nitrogen 21 mg/dL (9-23)
[2024-11-06 06:53] LABS: Glucose 123 mg/dL (74-106)
--- NOTE | 2024-11-06 09:33 | DVH ---
CLINICAL INDICATION: Scheduled R ORIF, requested stat CT prior to surgery. TECHNIQUE: Noncontrast CT of the right femur was performed. Sagittal and coronal reformatted images a re provided. 3D images submitted. COMPARISON: CT right knee performed 11/05/2024. CT Dose: CTDI volume is 21.8 mGy. Dose-length product is 1083.86 mGy*cm FINDINGS: Acute comminuted distal femoral meta diaphysis fracture. The fracture extends to the later al femoral condyle articular surface. There is severe medial and lateral compartment joint space narr owing and osteophyte formation consistent with knee osteoarthrosis. There is lipohemarthrosis. Region al soft tissue swelling is noted. IMPRESSION: 1. Acute comminuted and displaced distal femoral fracture. 2. Knee osteoarthrosis. All CT scans at this medical facility are performed using dose modulation techniques as appropriate t o a performed exam including the following: Automated exposure control was utilized; adjustment of th e MA and/or KV according to patient size; and use of iterative reconstruction technique.
--- NOTE | 2024-11-06 11:38 | DVH ---
EXAM: XY CHEST PORTABLE HISTORY: PRE-OP COMPARISON: CHEST PORTABLE on DOS: 04/09/21 TECHNIQUE: Portable AP view of the chest was performed. FINDINGS: There is central interstitial prominence, likely exaggerated by abundant overlying adipose tissue. N o pneumothorax or consolidative infiltrates. The heart is borderline enlarged. IMPRESSION: Central interstitial prominence may be due to reactive airways disease or CHF. This appearance is li phuong exaggerated by the patient's large body habitus.
--- NOTE | 2024-11-06 12:55 | DVHPN2 ---
Progress Note Date Seen: Nov 06, 2024 Medical Necessity Reason Pt with a Central, PICC or Fol: Yes Reason for ferrara catheter: Strict I&O Subjective Patient reports: No new complaints Objective vital signs Vital Sign Date Time Temp Pulse Resp B/P (MAP) Pulse Ox O2 Delivery O2 Flow Rate FiO2 11/06/24 11:23 90 16 124/54 11/06/24 08:49 99.2 95 99.2 11/05/24 20:00 Room Air* 0 21 Total Intake and Output 11/05/24 11/05/24 11/06/24 15:00 23:00 07:00 Intake Total 600 ml 700 ml Output Total 400 ml 1100 ml Balance 200 ml -400 ml medications Current Medications Medications Dose Ordered Sig/Tex Route Start Time Stop Time Status Last Admin Dose Admin Albuterol 2.5 mg Q6HPRN PRN NEB 11/05/24 05:00 Atorvastatin Calcium 40 mg HS PO 11/05/24 22:00 11/05/24 21:50 40 MG Lisinopril 20 mg DAILY PO 11/05/24 10:00 11/06/24 09:47 20 MG Levothyroxine Sodium 125 mcg QAM@0600 PO 11/05/24 06:00 Acetaminophen/ Hydrocodone Bitart 1 tab Q4HP PRN PO 11/05/24 05:00 11/06/24 09:58 1 TAB Ondansetron HCl 4 mg Q4HP PRN IV 11/05/24 05:00 Acetaminophen 650 mg Q6HP PRN PO 11/05/24 05:00 Morphine Sulfate 2 mg Q4HPRN PRN IV 11/05/24 05:15 11/06/24 11:23 2 MG Examination: GENERAL:Abnormal, MSK:Abnormal laboratory and microbiology Laboratory Tests 11/06/24 05:53 11/05/24 03:40 Test 11/06/24 05:53 Range/Units Serum Glucose 123 H 74-106 mg/dL Problem List/Assessment/Plan Problem List/Assessment/Plan Displaced and comminuted right distal femur fracture; BMI 49 1. I had a long discussion with patient son regarding her condition. We discussed fracture fixation versus distal femoral replacement. Due to the extent of comminution she is a better candidate for distal femoral replacement. 2. Rec Higher level of care for the type of case patient needs and her comorbidities 3. pain control 4. NWB RLE Plan discussed with: Patient, Son My Orders My Orders Orders - MAI SQUIRES MD Procedure Category Date Status Time Obtain Consent For: ORDERS 11/06/24 Transmitted 08:46 Obtain Consent For MATILDA 11/06/24 In Process Anesthesia 08:46 Electrocardigram EKG 11/06/24 Logged 10:56 Chest Portable XY 11/06/24 Resulted 10:56 Cardiac DIET 11/06/24 Transmitted Diet-2gna,Lofat,Lochol Lunch MAI SQUIRES MD Nov 06, 2024 12:55
--- NOTE | 2024-11-06 18:16 | DVHPN2 ---
Subjective seen in bed today and discussed with son at bedside Reviewed: H&P, Labs Changes from previous H/P or p: No Changes Objective Vitals Vital Signs Date Time Temp Pulse Resp B/P (MAP) Pulse Ox O2 Delivery O2 Flow Rate FiO2 11/06/24 16:21 68 14 126/76 11/06/24 13:00 97.0 96 97.0 11/06/24 08:00 Room Air* 0 21 Intake/Output Intake and Output 11/06/24 07:00 Intake Total 1300 ml Output Total 1500 ml Balance -200 ml Intake Oral 1300 ml Output Urine Total 1500 ml General Appearance: Alert, Oriented X3 HEENT: Atraumatic Lungs: Clear to auscultation Cardiovascular: Regular rate, Normal S1, Normal S2 Abdomen: Normal bowel sounds Medications Current Medications Medications Dose Ordered Sig/Tex Route Start Time Stop Time Status Last Admin Dose Admin Albuterol 2.5 mg Q6HPRN PRN NEB 11/05/24 05:00 Atorvastatin Calcium 40 mg HS PO 11/05/24 22:00 11/05/24 21:50 40 MG Lisinopril 20 mg DAILY PO 11/05/24 10:00 11/06/24 09:47 20 MG Levothyroxine Sodium 125 mcg QAM@0600 PO 11/05/24 06:00 Acetaminophen/ Hydrocodone Bitart 1 tab Q4HP PRN PO 11/05/24 05:00 11/06/24 09:58 1 TAB Ondansetron HCl 4 mg Q4HP PRN IV 11/05/24 05:00 Acetaminophen 650 mg Q6HP PRN PO 11/05/24 05:00 Morphine Sulfate 2 mg Q4HPRN PRN IV 11/05/24 05:15 11/06/24 15:51 2 MG Laboratory Results Laboratory Tests 11/05/24 03:40 11/06/24 05:53 Chemistry Test 11/06/24 05:53 Calcium Level 8.7 mg/dL (8.7-10.4) Urinalysis Test 11/05/24 02:45 Urine Color Yellow (Yellow) Urine Clarity Clear (Clear) Urine pH 5.5 (5.0-9.0) Urine Specific [place] 1.027 (1.001-1.035) Urine Protein Negative (Negative) Urine Ketones Negative (Negative) Urine Blood Negative /uL (Negative) Urine Nitrite Negative (Negative) Urine Bilirubin Negative (Negative) Urine Urobilinogen 2 mg/dL (Negative) H Urine Leukocyte Esterase Negative /uL (Negative) Urine RBC None seen /hpf (0 - 4) Urine Microscopic WBC 1 /HPF (0-5) Urine Squamous Epithelial Cells Few /hpf (<5) Urine Bacteria None seen /hpf (None Seen) Urine Hyaline Casts Few /lpf (0 - 2) Urine Mucus Few (None Seen) Urine Glucose Normal mg/dL (Normal) Assessment/Plan Assessment/Plan Right femur fracture Acute kidney injury Hypertension Monitor BMP Creat 1.04>0.7 Ortho consulted Rec Higher level of care for the type of case patient needs and her comorbidities Plan discussed with: Patient Date of Service: Nov 06, 2024 Billing Provider: SHERMAN WU MD Common Visit Codes: [id number] INP/OBS CARE(HIGH) SHERMAN WU MD Nov 06, 2024 18:16
[2024-11-06] MEDS: ATORVASTATIN 20 MG TAB PO SCH (23:18)
[2024-11-07] VITALS (9 sets, daily range): BP systolic 109–146; BP diastolic 59–79; PULSE 90–102; RESP 16–20; TEMP 98–98.8; O2SAT 86–99
--- NOTE | 2024-11-07 07:24 | ECG ---
[facility] Test Date: 2024-11-06 Test Time: 04:46:49 Pat Name: MANUEL TEJEDA Department: Respiratoy Room: 0297 B Gender: F Communications Planner: [id number] : 1950 Requested By: ALVA SHEFFIELD Order Number: [id number] Reading MD: Reginaldo Alvarez Measurements Intervals [place] Rate: 85 P: 26 ID: [id number] QRS: 7 QRSD: 87 T: -8 QT: 366 QTc: 436 Interpretive Statements Sinus rhythm Low voltage, extremity leads Minimal ST depression, inferior leads Baseline wander in lead(s) II,III,aVR,aVL,aVF Electronically Signed On 11-07-2024 9:32:59 PDT by Reginaldo Alvarez Please click the below link to view image of tracing.
[2024-11-07] MEDS: LEVOTHYROXINE SODIUM 50 MCG TAB PO ONE (08:21)
[2024-11-07 16:40] LABS: Urine Bacteria FEW /hpf (None Seen); Urine Blood Negative /uL (Negative); Urine Clarity Ex.Turbid (Clear); Urine Color Light-Orange (Yellow); Urine Mucus FEW (None Seen); Urine Protein, UAD 3+ (Negative); Urine Squamous Epithelial Cell FEW /hpf (<5); Urine Urobilinogen 3 mg/dL (Negative); Urine WBC 15 /HPF (0-5); Urine pH 8.5 (5.0-9.0)
--- NOTE | 2024-11-07 20:13 | DVHPN2 ---
Subjective seen in bed today and discussed with son at bedside Reviewed: H&P, Labs Changes from previous H/P or p: No Changes Objective Vitals Vital Signs Date Time Temp Pulse Resp B/P (MAP) Pulse Ox O2 Delivery O2 Flow Rate FiO2 11/07/24 17:30 98.7 96 18 109/65 (80) 99 98.7 11/07/24 08:01 Room Air* 0 21 Intake/Output Intake and Output 11/07/24 07:00 Intake Total 1438 ml Output Total 2500 ml Balance -1062 ml Intake Oral 1438 ml Output Urine Total 2500 ml General Appearance: Alert, Oriented X3 HEENT: Atraumatic Lungs: Clear to auscultation Cardiovascular: Regular rate, Normal S1, Normal S2 Abdomen: Normal bowel sounds Medications Current Medications Medications Dose Ordered Sig/Tex Route Start Time Stop Time Status Last Admin Dose Admin Lisinopril 20 mg DAILY PO 11/05/24 10:00 11/07/24 08:22 20 MG Acetaminophen/ Hydrocodone Bitart 1 tab Q4HP PRN PO 11/05/24 05:00 11/06/24 09:58 1 TAB Ondansetron HCl 4 mg Q4HP PRN IV 11/05/24 05:00 Acetaminophen 650 mg Q6HP PRN PO 11/05/24 05:00 Morphine Sulfate 2 mg Q4HPRN PRN IV 11/05/24 05:15 11/07/24 15:04 2 MG Atorvastatin Calcium 40 mg HS PO 11/06/24 22:00 11/06/24 23:18 40 MG Levothyroxine Sodium 125 mcg QAM@0600 PO 11/08/24 06:00 Laboratory Results Laboratory Tests 11/05/24 03:40 11/06/24 05:53 Urinalysis Test 11/05/24 02:45 11/07/24 15:36 Urine Hyaline Casts Few /lpf (0 - 2) Urine Color Light-orange (Yellow) Urine Clarity Ex.turbid (Clear) Urine pH 8.5 (5.0-9.0) Urine Specific [place] 1.030 (1.001-1.035) Urine Protein 3+ (Negative) H Urine Ketones 2+ (Negative) H Urine Blood Negative /uL (Negative) Urine Nitrite 2+ (Negative) H Urine Bilirubin Negative (Negative) Urine Urobilinogen 3 mg/dL (Negative) H Urine Leukocyte Esterase 3+ /uL (Negative) Urine RBC 4 /hpf (0 - 4) Urine Microscopic WBC 15 /HPF (0-5) H Urine Squamous Epithelial Cells Few /hpf (<5) Urine Triple Phosphate Crystals Mod /hpf (None Seen) Urine Bacteria Few /hpf (None Seen) H Urine Mucus Few (None Seen) Urine Glucose Normal mg/dL (Normal) Assessment/Plan Assessment/Plan Right femur fracture Acute kidney injury Hypertension Monitor BMP Creat 1.04>0.7 Ortho consulted Rec Higher level of care for the type of case patient needs and her comorbidities Plan discussed with: Patient Date of Service: Nov 07, 2024 Billing Provider: SHERMAN WU MD Common Visit Codes: [id number] INP/OBS CARE(HIGH) SHERMAN WU MD Nov 07, 2024 20:13
[2024-11-07] MEDS: cefTRIAXone 1GM/50ML D5W 50 ML IV SCH (21:01)
[2024-11-08] VITALS (8 sets, daily range): BP systolic 108–119; BP diastolic 55–67; PULSE 71–102; RESP 16–19; TEMP 97.9–99; O2SAT 92–95
[2024-11-08] MEDS: LEVOTHYROXINE SODIUM 50 MCG TAB PO SCH (06:24)
--- NOTE | 2024-11-08 15:25 | DVHPN2 ---
Subjective seen in bed today and discussed with son at bedside Reviewed: H&P, Labs Changes from previous H/P or p: No Changes Objective Vitals Vital Signs Date Time Temp Pulse Resp B/P (MAP) Pulse Ox O2 Delivery O2 Flow Rate FiO2 11/08/24 14:07 71 17 110/55 11/08/24 13:00 98.4 92 98.4 11/08/24 08:00 Room Air* 0 21 Intake/Output Intake and Output 11/08/24 07:00 Intake Total 575 ml Output Total 300 ml Balance 275 ml Intake Oral 575 ml Output Urine Total 300 ml General Appearance: Alert, Oriented X3 HEENT: Atraumatic Lungs: Clear to auscultation Cardiovascular: Regular rate, Normal S1, Normal S2 Abdomen: Normal bowel sounds Medications Current Medications Medications Dose Ordered Sig/Tex Route Start Time Stop Time Status Last Admin Dose Admin Lisinopril 20 mg DAILY PO 11/05/24 10:00 11/08/24 08:33 20 MG Acetaminophen/ Hydrocodone Bitart 1 tab Q4HP PRN PO 11/05/24 05:00 11/08/24 11:50 1 TAB Ondansetron HCl 4 mg Q4HP PRN IV 11/05/24 05:00 Acetaminophen 650 mg Q6HP PRN PO 11/05/24 05:00 Morphine Sulfate 2 mg Q4HPRN PRN IV 11/05/24 05:15 11/08/24 14:07 2 MG Atorvastatin Calcium 40 mg HS PO 11/06/24 22:00 11/07/24 21:01 40 MG Levothyroxine Sodium 125 mcg QAM@0600 PO 11/08/24 06:00 11/08/24 06:24 125 MCG Ceftriaxone Sodium 50 ml @ 100 mls/hr DAILY@09 IV 11/07/24 20:45 11/08/24 08:41 100 MLS/HR Laboratory Results Laboratory Tests 11/05/24 03:40 11/06/24 05:53 Urinalysis Test 11/05/24 02:45 11/07/24 15:36 Urine Hyaline Casts Few /lpf (0 - 2) Urine Color Light-orange (Yellow) Urine Clarity Ex.turbid (Clear) Urine pH 8.5 (5.0-9.0) Urine Specific [place] 1.030 (1.001-1.035) Urine Protein 3+ (Negative) H Urine Ketones 2+ (Negative) H Urine Blood Negative /uL (Negative) Urine Nitrite 2+ (Negative) H Urine Bilirubin Negative (Negative) Urine Urobilinogen 3 mg/dL (Negative) H Urine Leukocyte Esterase 3+ /uL (Negative) Urine RBC 4 /hpf (0 - 4) Urine Microscopic WBC 15 /HPF (0-5) H Urine Squamous Epithelial Cells Few /hpf (<5) Urine Triple Phosphate Crystals Mod /hpf (None Seen) Urine Bacteria Few /hpf (None Seen) H Urine Mucus Few (None Seen) Urine Glucose Normal mg/dL (Normal) Assessment/Plan Assessment/Plan Right femur fracture Acute kidney injury Hypertension Monitor BMP Creat 1.04>0.7 Ortho consulted Rec Higher level of care for the type of case patient needs and her comorbidities Plan discussed with: Patient My Orders Orders - SHERMAN WU MD Procedure Category Date Status Time Urine Bacterial MARITZA 11/08/24 In Process Culture 09:45 Date of Service: Nov 08, 2024 Billing Provider: SHERMAN WU MD Common Visit Codes: [id number] INP/OBS CARE(HIGH) SHERMAN WU MD Nov 08, 2024 15:25
[2024-11-09] VITALS (7 sets, daily range): BP systolic 96–195; BP diastolic 42–57; PULSE 80–95; RESP 15–18; TEMP 97.5–98.5; O2SAT 91–97
[2024-11-09 16:17] LABS: Basophils # (auto) 0 10 ^3/uL (0-0.2); Basophils % (auto) 0.3 % (0.0-2.0); Eosinophils # (auto) 0.1 10 ^3/uL (0-0.8); Eosinophils % (auto) 1.3 % (0.0-7.0); Hemoglobin 10.8 g/dL (12.2-16.2); Lymphocytes # (auto) 0.8 10 ^3/uL (0.4-5.4); Lymphocytes % (auto) 8.6 % (10.0-50.0); Mean Corpuscular Hgb Conc. 32.6 g/dL (32.0-36.0); Mean Corpuscular Volume 82.9 fL (80.0-100.0); Monocytes # (auto) 0.8 10 ^3/uL (0-1.3); Monocytes % (auto) 8.1 % (0.0-12.0); Neutrophils # (auto) 7.6 10 ^3/uL (1.6-8.6); Neutrophils % (auto) 81.7 % (37.0-80.0); Platelet Count (auto) 357 10^3/uL (140-450); Red Blood Cells 3.98 10^6/uL (4.0-5.20); Red Cell Distribution Width 14.1 % (11.8-14.3); White Blood Cell 9.3 10^3/uL (4.4-10.8)
[2024-11-09 16:30] LABS: INR 0.99 (0.9-1.15); Prothrombin Time 10.5 sec (9.3-11.8)
--- NOTE | 2024-11-09 18:44 | DVHPN2 ---
Subjective seen in bed today Reviewed: H&P, Labs Changes from previous H/P or p: No Changes Objective Vitals Vital Signs Date Time Temp Pulse Resp B/P (MAP) Pulse Ox O2 Delivery O2 Flow Rate FiO2 11/09/24 16:53 97.8 88 17 104/43 (63) 91 97.8 11/09/24 08:00 Room Air* 0 21 Intake/Output Intake and Output 11/09/24 07:00 Intake Total 2045 ml Output Total 550 ml Balance 1495 ml Intake Oral 1995 ml IV Total 50 ml Output Urine Total 550 ml # Voids 7 General Appearance: Alert, Oriented X3 HEENT: Atraumatic Lungs: Clear to auscultation Cardiovascular: Regular rate, Normal S1, Normal S2 Abdomen: Normal bowel sounds Medications Current Medications Medications Dose Ordered Sig/Tex Route Start Time Stop Time Status Last Admin Dose Admin Lisinopril 20 mg DAILY PO 11/05/24 10:00 11/09/24 09:03 20 MG Acetaminophen/ Hydrocodone Bitart 1 tab Q4HP PRN PO 11/05/24 05:00 11/09/24 17:53 1 TAB Ondansetron HCl 4 mg Q4HP PRN IV 11/05/24 05:00 Acetaminophen 650 mg Q6HP PRN PO 11/05/24 05:00 Morphine Sulfate 2 mg Q4HPRN PRN IV 11/05/24 05:15 11/09/24 14:47 2 MG Atorvastatin Calcium 40 mg HS PO 11/06/24 22:00 11/08/24 21:34 40 MG Levothyroxine Sodium 125 mcg QAM@0600 PO 11/08/24 06:00 11/09/24 06:14 125 MCG Ceftriaxone Sodium 50 ml @ 100 mls/hr DAILY@09 IV 11/07/24 20:45 11/09/24 09:01 100 MLS/HR Laboratory Results Laboratory Tests 11/06/24 05:53 11/09/24 16:00 Coagulation Test 11/09/24 16:00 Prothrombin Time 10.5 sec (9.3-11.8) Prothrombin Time INR 0.99 (0.9-1.15) Urinalysis Test 11/05/24 02:45 11/07/24 15:36 Urine Hyaline Casts Few /lpf (0 - 2) Urine Color Light-orange (Yellow) Urine Clarity Ex.turbid (Clear) Urine pH 8.5 (5.0-9.0) Urine Specific [place] 1.030 (1.001-1.035) Urine Protein 3+ (Negative) H Urine Ketones 2+ (Negative) H Urine Blood Negative /uL (Negative) Urine Nitrite 2+ (Negative) H Urine Bilirubin Negative (Negative) Urine Urobilinogen 3 mg/dL (Negative) H Urine Leukocyte Esterase 3+ /uL (Negative) Urine RBC 4 /hpf (0 - 4) Urine Microscopic WBC 15 /HPF (0-5) H Urine Squamous Epithelial Cells Few /hpf (<5) Urine Triple Phosphate Crystals Mod /hpf (None Seen) Urine Bacteria Few /hpf (None Seen) H Urine Mucus Few (None Seen) Urine Glucose Normal mg/dL (Normal) Microbiology Microbiology Date/Time Source Procedure Growth Status 11/07/24 15:36 Urine - Midstream Clean Catch Urine Culture - Preliminary Resulted Assessment/Plan Assessment/Plan Right femur fracture Acute kidney injury Hypertension Monitor BMP Creat 1.04>0.7 Ortho consulted Rec Higher level of care for the type of case patient needs and her comorbidities [facility] have declined transfer due to to beds and OR time Plan discussed with: Patient My Orders Orders - SHERMAN WU MD Procedure Category Date Status Time * Wound Consult CONS 11/09/24 Transmitted Date of Service: Nov 09, 2024 Billing Provider: SHERMAN WU MD Common Visit Codes: [id number] INP/OBS CARE(HIGH) SHERMAN WU MD Nov 09, 2024 18:44
[2024-11-10] VITALS (33 sets, daily range): BP systolic 35–154; BP diastolic 12–130; PULSE 77–109; RESP 9–18; TEMP 97.3–98.1; O2SAT 81–100
[2024-11-10] MEDS: SUCCINYLCHOLINE CHLORIDE 20 MG/ML 10ML VIAL IV ONE (06:44)
[2024-11-10] MEDS: ROCURONIUM 10MG/ML 10ML VIAL IV ONE (06:44)
[2024-11-10] MEDS: KETOROLAC TROMETH 30 MG/ML 1ML VIAL ONE (06:57)
[2024-11-10] MEDS: BUPIVACAINE 0.25% INJ 50ML VIAL ONE (06:58)
[2024-11-10] MEDS: TETRACAINE 1% INJ 2 ML VIAL IJ ONE (07:12)
[2024-11-10] MEDS ORDERED: KETAMINE 50mg/ML 1ml syringe ONE ×3 (07:18→08:06)
[2024-11-10] MEDS ORDERED: fentaNYL CITRATE 100 MCG/2 ML VL ONE (07:18)
[2024-11-10] MEDS ORDERED: ONDANSETRON HCL 4 MG/2 ML VIAL ONE (07:19)
[2024-11-10] MEDS ORDERED: SODIUM CHLORIDE LOCK 10 ML ONE (07:19)
[2024-11-10] MEDS ORDERED: PROPOFOL 10 MG/ML 20 ML IV ONE (07:19)
[2024-11-10] MEDS ORDERED: LIDOCAINE 1% INJ PF 5ML AMP ONE (07:19)
[2024-11-10] MEDS ORDERED: MIDAZOLAM HCL 2MG/2ML 2ml VIAL (1mg/ml) ONE ×2 (07:19→07:52)
[2024-11-10] MEDS: ceFAZolin 2 GM/D5W50ml 50 ML IV ONE (07:45)
[2024-11-10] MEDS: TRANEXAMIC ACID 20 ML ONE (09:15)
[2024-11-10] MEDS: CEFEPIME 1GM/ 50ML 50 ML IV SCH (10:00)
[2024-11-10] MEDS: VANCOMYCIN HCL 1000 MG VL ONE (10:01)
[2024-11-10] MEDS: MORPHINE SULF PF 5 MG/10 ML VIAL ONE (10:40)
[2024-11-10] MEDS: METOCLOPRAMIDE HCL 5MG/ml INJ 2ml VIAL IV ONE (11:00)
[2024-11-10] MEDS ORDERED: MORPHINE SULFATE 4 MG/ML SYR/VIAL IV PRN (11:00)
[2024-11-10] MEDS ORDERED: NALOXONE HCL 0.4 MG/ML VIAL IV PRN (11:00)
[2024-11-10] MEDS ORDERED: diphenhdrAMINE HCL 50 MG/1 ML VL IV PRN (11:00)
[2024-11-10] MEDS ORDERED: HYDROmorphone HCL 2 MG/ML VL/or syr IV PRN ×2 (11:00)
[2024-11-10] MEDS ORDERED: MORPHINE SULFATE INJ 2 MG/ml SYRG IV PRN (11:00)
--- NOTE | 2024-11-10 11:09 | DVHOP2 ---
Operative Report Preoperative diagnosis is right intra-articular distal femur fracture Postoperative diagnosis is same Surgical procedure is right distal femoral replacement arthroplasty Computer navigation for right knee arthroplasty VMO quadriceps realignment with lengthening of the quadriceps tendon Lateral release of the lateral aspect of the patella Lengthening a posterior capsule of the right knee Complex wound closure 20 cm subcuticular skin Application of negative pressure wound VAC Twenty-two modifier based on the operative time based on the morbid obesity stated the patient along with the intra-articular distal femur fracture with a takedown nonunion of the fracture fragments are taking a proximally 35 minutes longer than the normal routine distal femoral replacement for loose component. Surgeon Cortez Gallagher MD Complication none Findings Intra-articular distal femur fracture Plan Weight-bearing as tolerated in the right lower extremity PT OT Out of bed daily Ancef for 48 hours DVT prophylaxis Surgical indication The patient is a 74-year-old female who has ongoing pain in the right knee the patient had an intra-articular distal femur fracture with intra-articular extension into the distal femur and a coronal and sagittal was. Based on these parameters the patient was educated on the risks and benefits of surgical and no nsurgical treatment of the right lower extremity the patient understands the risks and benefits of surgical and nonsurgical treatment based on the intra- articular nature and based on the coronal split of the fracture pattern the patient was educated on the need for a distal femur fracture versus an open reduction internal fixation of the patient understands the risks and benefits v ersus an open reduction internal fixation with a plate versus nail construct versus the distal femur fracture the patient understands the risks and benefits of surgical troch fixation also distal femur replacement The patient is seen in the preoperative holding of the right lower extremity was marked the patient was brought to operative suite general anesthesia was then induced and also to hospital protocol the right lower extremity was prepped and draped in the standard fashion Ancef was given for infection prophylaxis TXA was given for bleeding prophylaxis once the patient was given the TXA of the patient was prepped and draped in the standard fashion once it is done done. Once it was then done on incision was made through skin subcu tissue muscle fascia down to the femoral quad arthrotomy there is significant hematoma noted there was significant fracture fragments noted however then using computer navigation on the proximal tibia after deep MCL release was then done after the fat pad was then removed using a computer navigation of the proximal tibia with a 3 degree slope cut into the appropriate alignment with a 2 degree neutral slot was then cut into the appropriate alignment to help with the tibial base plate with flexion extension internal external rotation with the tibial slope with a mechanical and mechanical axis. Once it computer navigation was used of the proximal tibia cut off of the medial and lateral meniscus and ACL PCL were carefully removed the distal femur bone fragments were carefully removed with checking the MCL lateral LCL the popliteal tendon carefully and checking of the posterior capsular release in the appropriate manner to ensure the adequate bone fragments are carefully removed in a safe manner using the ensure of the popliteal artery was protected throughout the entire transsection I measured the preoperative x-ray on the measured of the fracture fragments appear to be 94 mm in length therefore 3 resected 11 mm of bone off of the distal fragment without that was then measured in the appropriate alignment once it was then done with the appropriate alignment with the 6 mm to get to 100 mm construct. Once it was then done sequential reaming was then the reaming was done 2 a 14 mm once I was then completed a large 14 mm Hanson was done to get a conical Reamer followed by that a 12 cemented stem with a 30 mm extension and a 70 mm femur was then sized in the appropriate back table and trial that was the appropriate rotation was then checked with the patella tracking of the rotation of the fracture fragment once I was then done in the appropriate manner for patellar tracking was then checked appropriately the proximal tibia cut was a 71 with a keel reaming followed by punch followed by [place] reaming all the trial components were 14 mm poly that was appropriately placed in the appropriate manner with a full 14 mm poly all the trial components were carefully removed a 71 modular Biomet tibial base plate was cement in the position a 70+ 30+ at 12 mm cemented were apparently location of the on the cement of lori was then put of 120 once it was then appropriately with a blocked in the appropriate done in the cement was allowed to harden the 14 mm polyethylene liner was then placed in the prone position on was then balanced in flexion and extension internal external rotation of the appropriate manner once it was then done on the all the trial components the were always were removed with the final components were placed in the appropriate position once they were then done then all the cement was allowed to harden of the patellar tracking of the lateral release tendon patellar neurectomy was then completed the patella was not resurfaced the patella was tracking appropriately once I was then done I did a quadricep strengthening slightly to help with the patella tracking and along with the lateral least once I was then done patellar tracking was excellent with a 2. FiberWire followed by 1. Stratafix I was then irrigated with vancomycin powder irrigation Betadine followed by vancomycin powder the arthrotomy was then closed followed by the 2. FiberWire of the posterior capsule was then carefully length and as well to help with the full extension there was no tightness in the full extension the patient had full adequate range of motion from extension through 125 of flexion and there was no rotational instability noted once it was then done the capsule was then closed with a 1. Strep FiberWire followed by 1. Stratafix followed by 0 Vicryl followed by 2-0 Monocryl complex wound closure 25 mm was then completed with a 2. Vicryl followed by negrita followed by negative pressure wound VAC. The patient will be weight-bearing as tolerated on the left lower extremity PT of the patient will be weight-bearing as tolerated in the right lower extremity PT OT out of bed daily follow up in approximately 2 weeks' time. CORTEZ ROJAS MD Nov 10, 2024 11:08
[2024-11-10] MEDS: ePHEDrine SULFATE 50 MG/ML AMP IV PRN (11:13)
--- NOTE | 2024-11-10 12:21 | DVH ---
EXAM: XY R KNEE 2V XRAY HISTORY: sp Right distal femur COMPARISON: XY R KNEE 2V XRAY on DOS: 11/05/24 TECHNIQUE: AP and lateral views of the right knee were performed. FINDINGS/IMPRESSION: Postoperative changes of right total knee arthroplasty with long femoral and tibial stems, and resect ion of the distal femoral metaphysis. Some bone cement has extruded anteriorly from the distal margin of the tibial stem.
[2024-11-10] MEDS: PHENYLEPHRINE IV 250 ML IV ONE (13:00)
[2024-11-10 13:44] LABS: Basophils # (auto) 0 10 ^3/uL (0-0.2); Basophils % (auto) 0.1 % (0.0-2.0); Eosinophils # (auto) 0 10 ^3/uL (0-0.8); Eosinophils % (auto) 0.1 % (0.0-7.0); Hematocrit 24.4 % (36.0-46.0); Hemoglobin 7.9 g/dL (12.2-16.2); Lymphocytes # (auto) 0.9 10 ^3/uL (0.4-5.4); Lymphocytes % (auto) 5.2 % (10.0-50.0); Mean Corpuscular Hemoglobin 27.3 pg (28.0-32.0); Mean Corpuscular Hgb Conc. 32.3 g/dL (32.0-36.0); Mean Corpuscular Volume 84.6 fL (80.0-100.0); Monocytes # (auto) 1.4 10 ^3/uL (0-1.3); Monocytes % (auto) 7.9 % (0.0-12.0); Neutrophils # (auto) 15.6 10 ^3/uL (1.6-8.6); Neutrophils % (auto) 86.7 % (37.0-80.0); Platelet Count (auto) 325 10^3/uL (140-450); Red Blood Cells 2.88 10^6/uL (4.0-5.20); Red Cell Distribution Width 14.3 % (11.8-14.3)
[2024-11-10] MEDS: ceFAZolin 2 GM/D5W50ml 50 ML IV SCH (14:00)
[2024-11-10] MEDS: KETOROLAC TROMETH 30 MG/ML 1ML VIAL IV ONE (14:40)
--- NOTE | 2024-11-10 16:31 | DVHPN2 ---
Subjective In the OR Reviewed: H&P, Labs Changes from previous H/P or p: No Changes Objective Vitals Vital Signs Date Time Temp Pulse Resp B/P (MAP) Pulse Ox O2 Delivery O2 Flow Rate FiO2 11/10/24 15:30 87 20 118/40 (66) 99 11/10/24 11:30 Nasal Cannula 3.0 11/10/24 10:47 97.7 97.7 11/10/24 07:37 21 Intake/Output Intake and Output 11/10/24 07:00 Intake Total 1070 ml Output Total 900 ml Balance 170 ml Intake Oral 1000 ml IV Total 70 ml Output Urine Total 900 ml General Appearance: Alert, Oriented X3 HEENT: Atraumatic Lungs: Clear to auscultation Cardiovascular: Regular rate, Normal S1, Normal S2 Abdomen: Normal bowel sounds Medications Current Medications Medications Dose Ordered Sig/Tex Route Start Time Stop Time Status Last Admin Dose Admin Lisinopril 20 mg DAILY PO 11/05/24 10:00 11/09/24 09:03 20 MG Acetaminophen/ Hydrocodone Bitart 1 tab Q4HP PRN PO 11/05/24 05:00 11/10/24 13:38 1 TAB Ondansetron HCl 4 mg Q4HP PRN IV 11/05/24 05:00 Acetaminophen 650 mg Q6HP PRN PO 11/05/24 05:00 Morphine Sulfate 2 mg Q4HPRN PRN IV 11/05/24 05:15 11/10/24 06:23 2 MG Atorvastatin Calcium 40 mg HS PO 11/06/24 22:00 11/09/24 21:32 40 MG Levothyroxine Sodium 125 mcg QAM@0600 PO 11/08/24 06:00 11/09/24 06:14 125 MCG Ceftriaxone Sodium 50 ml @ 100 mls/hr DAILY@09 IV 11/07/24 20:45 Hold 11/09/24 09:01 100 MLS/HR Cefazolin Sodium/ Dextrose 50 ml @ 50 mls/hr Q8HR IV 11/10/24 14:00 11/10/24 14:00 50 MLS/HR Cefepime HCl 50 ml @ 12.5 mls/hr DAILY IV 11/10/24 10:00 11/10/24 10:00 12.5 MLS/HR Enoxaparin Sodium 40 mg DAILY SC 11/11/24 10:00 Diphenhydramine HCl 25 mg Q4HP PRN IV 11/10/24 11:00 Laboratory Results Laboratory Tests 11/06/24 05:53 11/10/24 13:15 Urinalysis Test 11/05/24 02:45 11/07/24 15:36 Urine Hyaline Casts Few /lpf (0 - 2) Urine Color Light-orange (Yellow) Urine Clarity Ex.turbid (Clear) Urine pH 8.5 (5.0-9.0) Urine Specific [place] 1.030 (1.001-1.035) Urine Protein 3+ (Negative) H Urine Ketones 2+ (Negative) H Urine Blood Negative /uL (Negative) Urine Nitrite 2+ (Negative) H Urine Bilirubin Negative (Negative) Urine Urobilinogen 3 mg/dL (Negative) H Urine Leukocyte Esterase 3+ /uL (Negative) Urine RBC 4 /hpf (0 - 4) Urine Microscopic WBC 15 /HPF (0-5) H Urine Squamous Epithelial Cells Few /hpf (<5) Urine Triple Phosphate Crystals Mod /hpf (None Seen) Urine Bacteria Few /hpf (None Seen) H Urine Mucus Few (None Seen) Urine Glucose Normal mg/dL (Normal) Microbiology Microbiology Date/Time Source Procedure Growth Status 11/07/24 15:36 Urine - Midstream Clean Catch Urine Culture - Final Proteus mirabilis Complete Assessment/Plan Assessment/Plan Right femur fracture Acute kidney injury Hypertension Monitor BMP Creat 1.04>0.7 OR today for ortho surgery Plan discussed with: Patient Date of Service: Nov 10, 2024 Billing Provider: SHERMAN WU MD Common Visit Codes: [id number] INP/OBS CARE(HIGH) SHERMAN WU MD Nov 10, 2024 16:31
[2024-11-10] MEDS: ONDANSETRON HCL 4 MG/2 ML VIAL IV PRN (18:23)
[2024-11-10] MEDS: ONDANSETRON HCL 4 MG/2 ML VIAL ONE ×2 (18:24→23:46)
[2024-11-10] MEDS: NOREPINEPHRINE 8 MG/250ML KIT 250 ML IV SCH (20:23)
--- NOTE | 2024-11-10 22:03 | DVH ---
CHEST RADIOGRAPH Indication: CENTRAL LINE PLACEMENT Technique: Single frontal view of the chest was obtained Comparison: XY CHEST PORTABLE on DOS: 11/06/24, CHEST PORTABLE on DOS: 04/09/21 FINDINGS: Lines and Tubes: Right internal jugular catheter in place in superior vena cava above the right atriu m. Lungs: No focal consolidation. Pleura: No effusion. No pneumothorax. Cardiomediastinal contours: Unremarkable Bones: No acute osseous abnormality. IMPRESSION: 1. Right internal jugular catheter in place in the superior vena cava above the right atrium.
[2024-11-11] VITALS (94 sets, daily range): BP systolic 84–129; BP diastolic 23–82; PULSE 81–105; RESP 10–24; TEMP 97.6–98.8; O2SAT 80–100
[2024-11-11] MEDS: PHENYLEPHRINE IV 250 ML IV SCH (02:51)
[2024-11-11] MEDS: PANTOPRAZOLE 40 MG/10 ML VIAL INJ IV ONE (04:08)
[2024-11-11 04:21] LABS: Basophils # (auto) 0.1 10 ^3/uL (0-0.2); Eosinophils # (auto) 0 10 ^3/uL (0-0.8); Eosinophils % (auto) 0.1 % (0.0-7.0); Hemoglobin 8.3 g/dL (12.2-16.2); Lymphocytes # (auto) 1.1 10 ^3/uL (0.4-5.4); Monocytes # (auto) 1.1 10 ^3/uL (0-1.3); Red Blood Cells 2.96 10^6/uL (4.0-5.20); Red Cell Distribution Width 14.3 % (11.8-14.3)
[2024-11-11 04:25] LABS: Basophils % (auto) 0.5 % (0.0-2.0); Hematocrit 24.7 % (36.0-46.0); Lymphocytes % (auto) 7.6 % (10.0-50.0); Mean Corpuscular Hemoglobin 28.2 pg (28.0-32.0); Mean Corpuscular Hgb Conc. 33.8 g/dL (32.0-36.0); Mean Corpuscular Volume 83.4 fL (80.0-100.0); Monocytes % (auto) 7.4 % (0.0-12.0); Neutrophils # (auto) 12.4 10 ^3/uL (1.6-8.6); Neutrophils % (auto) 84.4 % (37.0-80.0); Platelet Count (auto) 364 10^3/uL (140-450); White Blood Cell 14.7 10^3/uL (4.4-10.8)
[2024-11-11 04:37] LABS: Alanine Aminotransferase 18 U/L (7-40); Alkaline Phosphatase 71 U/L (46-116); Anion Gap 9 (5-15); BUN/Creatinine Ratio 23.3 (10.0-20.0); Carbon Dioxide 24 mmol/L (20-31); Chloride 101 mmol/L (98-107); Potassium 4.8 mmol/L (3.5-5.1)
[2024-11-11 04:38] LABS: Aspartate Aminotransferase 34 U/L (<34); Bilirubin, Total 0.8 mg/dL (0.2-1.0); Blood Urea Nitrogen 38 mg/dL (9-23); Calcium 8.1 mg/dL (8.7-10.4); Glucose 136 mg/dL (74-106); Sodium 134 mmol/L (136-145); Total Protein 4.9 g/dL (5.7-8.2)
[2024-11-11] MEDS: MORPHINE SULFATE INJ 2 MG/ml SYRG IV PRN (08:33)
[2024-11-11] MEDS: ONDANSETRON HCL 4 MG/2 ML VIAL ONE ×2 (08:35→13:50)
[2024-11-11] MEDS: ENOXAPARIN SOD 40 MG/0.4 ML SYRINGE SC SCH (10:00)
[2024-11-11] MEDS: SODIUM CHLORIDE 0.9% 1,350 ML IV ONE (14:45)
--- NOTE | 2024-11-11 14:59 | MEDREC ---
[facility] ASP Intervention Section I [facility] ASP Intervention: Duplication of therapy (PATIENT ON CEFTRIAXONE (ON HOLD PER PHARMACY) - CEFEPIME - CEFAZOLINE - PLEASE CONSIDER D/C ANTIBIOTICS FOR DUPLICATION OF THERAPY) BROOKLYN WHITTEN PHARMACIST Nov 11, 2024 14:59
[2024-11-11] MEDS: SODIUM CHLORIDE 0.9% 1,000 ML IV SCH (15:40)
--- NOTE | 2024-11-11 17:19 | DVHPN2 ---
Subjective in ICU resting transferred overnight due to severe hypotension and placed on pressors Reviewed: H&P, Labs Changes from previous H/P or p: No Changes Objective Vitals Vital Signs Date Time Temp Pulse Resp B/P (MAP) Pulse Ox O2 Delivery O2 Flow Rate FiO2 11/11/24 16:00 14 96 Nasal Cannula* 2 28 11/11/24 16:00 92 11/11/24 15:45 106/47 (66) 11/11/24 12:00 97.6 97.6 Intake/Output Intake and Output 11/11/24 07:00 Intake Total 1377.00 ml Output Total 900 ml Balance 477.00 ml Intake Oral 300 ml IV Total 1077.00 ml Output Urine Total 900 ml General Appearance: Alert, Oriented X3 HEENT: Atraumatic Lungs: Clear to auscultation Cardiovascular: Regular rate, Normal S1, Normal S2 Abdomen: Normal bowel sounds Medications Current Medications Medications Dose Ordered Sig/Tex Route Start Time Stop Time Status Last Admin Dose Admin Lisinopril 20 mg DAILY PO 11/05/24 10:00 11/09/24 09:03 20 MG Acetaminophen/ Hydrocodone Bitart 1 tab Q4HP PRN PO 11/05/24 05:00 11/11/24 10:28 1 TAB Ondansetron HCl 4 mg Q4HP PRN IV 11/05/24 05:00 11/11/24 13:51 4 MG Acetaminophen 650 mg Q6HP PRN PO 11/05/24 05:00 Atorvastatin Calcium 40 mg HS PO 11/06/24 22:00 11/10/24 22:14 40 MG Levothyroxine Sodium 125 mcg QAM@0600 PO 11/08/24 06:00 11/11/24 06:22 125 MCG Ceftriaxone Sodium 50 ml @ 100 mls/hr DAILY@09 IV 11/07/24 20:45 Hold 11/09/24 09:01 100 MLS/HR Cefazolin Sodium/ Dextrose 50 ml @ 50 mls/hr Q8HR IV 11/10/24 14:00 11/11/24 14:13 50 MLS/HR Cefepime HCl 50 ml @ 12.5 mls/hr DAILY IV 11/10/24 10:00 11/11/24 10:24 12.5 MLS/HR Enoxaparin Sodium 40 mg DAILY SC 11/11/24 10:00 Diphenhydramine HCl 25 mg Q4HP PRN IV 11/10/24 11:00 Morphine Sulfate 2 mg Q4HPRN PRN IV 11/10/24 17:30 11/11/24 13:51 2 MG Norepinephrine Bitartrate 250 ml @ 3.75 mls/hr Q24H IV 11/10/24 20:00 11/10/24 20:23 3.75 MLS/HR Phenylephrine HCl 250 ml @ 30 mls/hr Q8H20M IV 11/10/24 23:15 11/11/24 15:40 30 MLS/HR Sodium Chloride 1,000 ml @ 150 mls/hr Q6H40M IV 11/11/24 14:45 11/11/24 15:40 150 MLS/HR Docusate Sodium 100 mg BID PO 11/11/24 22:00 Laboratory Results Laboratory Tests 11/11/24 03:20 Chemistry Test 11/11/24 03:20 Albumin 3.0 g/dL (3.2-4.8) L Calcium Level 8.1 mg/dL (8.7-10.4) L Total Protein 4.9 g/dL (5.7-8.2) L Cardiac Markers Test 11/11/24 03:20 B-Type Natriuretic Peptide 58.43 pg/mL (0-100) LFT Test 11/11/24 03:20 Alanine Aminotransferase (ALT) 18 U/L (7-40) Alkaline Phosphatase 71 U/L (46-116) Aspartate Amino Transferase (AST) 34 U/L (<34) Total Bilirubin 0.8 mg/dL (0.2-1.0) Urinalysis Test 11/05/24 02:45 11/07/24 15:36 Urine Hyaline Casts Few /lpf (0 - 2) Urine Color Light-orange (Yellow) Urine Clarity Ex.turbid (Clear) Urine pH 8.5 (5.0-9.0) Urine Specific [place] 1.030 (1.001-1.035) Urine Protein 3+ (Negative) H Urine Ketones 2+ (Negative) H Urine Blood Negative /uL (Negative) Urine Nitrite 2+ (Negative) H Urine Bilirubin Negative (Negative) Urine Urobilinogen 3 mg/dL (Negative) H Urine Leukocyte Esterase 3+ /uL (Negative) Urine RBC 4 /hpf (0 - 4) Urine Microscopic WBC 15 /HPF (0-5) H Urine Squamous Epithelial Cells Few /hpf (<5) Urine Triple Phosphate Crystals Mod /hpf (None Seen) Urine Bacteria Few /hpf (None Seen) H Urine Mucus Few (None Seen) Urine Glucose Normal mg/dL (Normal) Microbiology Microbiology Date/Time Source Procedure Growth Status 11/10/24 17:05 Nose MRSA Screen - Final Complete 11/07/24 15:36 Urine - Midstream Clean Catch Urine Culture - Final Proteus mirabilis Complete Assessment/Plan Assessment/Plan #Right femur fracture s/p femoral bone replacement 11/10 #Acute kidney injury Monitor BMP Creat 1.04>0.7>1.6 #Hemorrhagic shock #Acute blood loss anemia Acute blood loss unexpected from surgery Hb drop 11>7.9 Continue levophed and wean Aggressive IVF today #HTN Holding medications Critical care time 59 minutes Plan discussed with: Patient My Orders Orders - SHERMAN WU MD Procedure Category Date Status Time Sodium Chloride 0.9% PHA 11/11/24 In Process 14:45 Docusate Sodium PHA 11/11/24 In Process Capsule (Colace 22:00 Apply Barrier Cream MATILDA 11/11/24 In Process 09:50 * Dietary Consult CONS 11/11/24 Transmitted 16:43 Date of Service: Nov 11, 2024 Billing Provider: SHERMAN WU MD Common Visit Codes: [id number] CARE 30-74 MIN SHERMAN WU MD Nov 11, 2024 17:19
[2024-11-11] MEDS: DOCUSATE SOD 100 MG CAP PO SCH (21:26)
[2024-11-12] VITALS (102 sets, daily range): BP systolic 98–144; BP diastolic 36–72; PULSE 80–107; RESP 10–26; TEMP 97.5–98.9; O2SAT 81–100
[2024-11-12 04:27] LABS: Anion Gap 6 (5-15); Carbon Dioxide 24 mmol/L (20-31); Chloride 107 mmol/L (98-107); Potassium 4.7 mmol/L (3.5-5.1); Sodium 137 mmol/L (136-145)
[2024-11-12 04:33] LABS: BUN/Creatinine Ratio 24.8 (10.0-20.0)
[2024-11-12 04:38] LABS: Blood Urea Nitrogen 26 mg/dL (9-23); Calcium 7.8 mg/dL (8.7-10.4); Glucose 110 mg/dL (74-106)
[2024-11-12 04:40] LABS: Basophils # (auto) 0.1 10 ^3/uL (0-0.2); Eosinophils # (auto) 0.1 10 ^3/uL (0-0.8); Hemoglobin 7.1 g/dL (12.2-16.2); Neutrophils # (auto) 11.9 10 ^3/uL (1.6-8.6)
[2024-11-12 04:45] LABS: Basophils % (auto) 0.6 % (0.0-2.0); Eosinophils % (auto) 0.8 % (0.0-7.0); Hematocrit 21.4 % (36.0-46.0); Mean Corpuscular Hemoglobin 27.8 pg (28.0-32.0); Mean Corpuscular Hgb Conc. 33.2 g/dL (32.0-36.0); Mean Corpuscular Volume 83.9 fL (80.0-100.0); Monocytes # (auto) 0.9 10 ^3/uL (0-1.3); Monocytes % (auto) 6.5 % (0.0-12.0); Neutrophils % (auto) 85.1 % (37.0-80.0); Nucleated Red Blood Cells % 0.1 %; Platelet Count (auto) 409 10^3/uL (140-450); Red Blood Cells 2.55 10^6/uL (4.0-5.20); Red Cell Distribution Width 14.2 % (11.8-14.3)
--- NOTE | 2024-11-12 16:10 | DVHPN2 ---
Subjective In bed resting remained on pressors Reviewed: H&P, Labs Changes from previous H/P or p: No Changes Objective Vitals Vital Signs Date Time Temp Pulse Resp B/P (MAP) Pulse Ox O2 Delivery O2 Flow Rate FiO2 11/12/24 15:45 91 18 104/47 (66) 91 11/12/24 14:00 Nasal Cannula* 2 28 11/12/24 12:45 98.5 98.5 Intake/Output Intake and Output 11/12/24 07:00 Intake Total 5563.75 ml Output Total 3240 ml Balance 2323.75 ml Intake Oral 2240 ml IV Total 3323.75 ml Output Urine Total 3240 ml General Appearance: Alert, Oriented X3 HEENT: Atraumatic Lungs: Clear to auscultation Cardiovascular: Regular rate, Normal S1, Normal S2 Abdomen: Normal bowel sounds Medications Current Medications Medications Dose Ordered Sig/Tex Route Start Time Stop Time Status Last Admin Dose Admin Lisinopril 20 mg DAILY PO 11/05/24 10:00 11/09/24 09:03 20 MG Acetaminophen/ Hydrocodone Bitart 1 tab Q4HP PRN PO 11/05/24 05:00 11/12/24 03:30 1 TAB Ondansetron HCl 4 mg Q4HP PRN IV 11/05/24 05:00 11/11/24 13:51 4 MG Acetaminophen 650 mg Q6HP PRN PO 11/05/24 05:00 Atorvastatin Calcium 40 mg HS PO 11/06/24 22:00 11/11/24 21:26 40 MG Levothyroxine Sodium 125 mcg QAM@0600 PO 11/08/24 06:00 11/12/24 05:59 125 MCG Ceftriaxone Sodium 50 ml @ 100 mls/hr DAILY@09 IV 11/07/24 20:45 Hold 11/09/24 09:01 100 MLS/HR Cefazolin Sodium/ Dextrose 50 ml @ 50 mls/hr Q8HR IV 11/10/24 14:00 11/12/24 14:17 50 MLS/HR Cefepime HCl 50 ml @ 12.5 mls/hr DAILY IV 11/10/24 10:00 11/12/24 10:24 12.5 MLS/HR Enoxaparin Sodium 40 mg DAILY SC 11/11/24 10:00 11/12/24 12:03 40 MG Diphenhydramine HCl 25 mg Q4HP PRN IV 11/10/24 11:00 Morphine Sulfate 2 mg Q4HPRN PRN IV 11/10/24 17:30 11/12/24 12:35 2 MG Norepinephrine Bitartrate 250 ml @ 3.75 mls/hr Q24H IV 11/10/24 20:00 11/10/24 20:23 3.75 MLS/HR Phenylephrine HCl 250 ml @ 30 mls/hr Q8H20M IV 11/10/24 23:15 11/12/24 06:12 30 MLS/HR Sodium Chloride 1,000 ml @ 150 mls/hr Q6H40M IV 11/11/24 14:45 11/12/24 10:27 150 MLS/HR Docusate Sodium 100 mg BID PO 11/11/24 22:00 11/12/24 10:21 100 MG Laboratory Results Laboratory Tests 11/12/24 03:45 Chemistry Test 11/12/24 03:45 Calcium Level 7.8 mg/dL (8.7-10.4) L Urinalysis Test 11/05/24 02:45 11/07/24 15:36 Urine Hyaline Casts Few /lpf (0 - 2) Urine Color Light-orange (Yellow) Urine Clarity Ex.turbid (Clear) Urine pH 8.5 (5.0-9.0) Urine Specific [place] 1.030 (1.001-1.035) Urine Protein 3+ (Negative) H Urine Ketones 2+ (Negative) H Urine Blood Negative /uL (Negative) Urine Nitrite 2+ (Negative) H Urine Bilirubin Negative (Negative) Urine Urobilinogen 3 mg/dL (Negative) H Urine Leukocyte Esterase 3+ /uL (Negative) Urine RBC 4 /hpf (0 - 4) Urine Microscopic WBC 15 /HPF (0-5) H Urine Squamous Epithelial Cells Few /hpf (<5) Urine Triple Phosphate Crystals Mod /hpf (None Seen) Urine Bacteria Few /hpf (None Seen) H Urine Mucus Few (None Seen) Urine Glucose Normal mg/dL (Normal) Microbiology Microbiology Date/Time Source Procedure Growth Status 11/10/24 17:05 Nose MRSA Screen - Final Complete 11/07/24 15:36 Urine - Midstream Clean Catch Urine Culture - Final Proteus mirabilis Complete Assessment/Plan Assessment/Plan #Right femur fracture s/p femoral bone replacement 11/10 #Acute kidney injury Monitor BMP Creat 1.04>0.7>1.6>1 #Hemorrhagic shock #Acute blood loss anemia Acute blood loss unexpected from surgery Hb drop 11>7.9>8.3>7 Another blood [id number] today Continue levophed and wean Aggressive IVF today #HTN Holding medications Critical care time 59 minutes Plan discussed with: Patient My Orders Orders - SHERMAN WU MD Procedure Category Date Status Time Apply Barrier Cream MATILDA 11/11/24 In Process 09:50 * Dietary Consult CONS 11/11/24 Transmitted 16:43 Date of Service: Nov 12, 2024 Billing Provider: SHERMAN WU MD Common Visit Codes: [id number] CARE 30-74 MIN SHERMAN WU MD Nov 12, 2024 16:10
[2024-11-13] VITALS (38 sets, daily range): BP systolic 100–153; BP diastolic 39–88; PULSE 75–100; RESP 11–31; TEMP 97.6–99.7; O2SAT 81–100
[2024-11-13 04:04] LABS: Basophils # (auto) 0.1 10 ^3/uL (0-0.2); Basophils % (auto) 0.6 % (0.0-2.0); Eosinophils # (auto) 0.1 10 ^3/uL (0-0.8); Eosinophils % (auto) 0.6 % (0.0-7.0); Hematocrit 22.9 % (36.0-46.0); Hemoglobin 7.7 g/dL (12.2-16.2); Lymphocytes # (auto) 0.8 10 ^3/uL (0.4-5.4); Lymphocytes % (auto) 7.3 % (10.0-50.0); Mean Corpuscular Hemoglobin 28.8 pg (28.0-32.0); Mean Corpuscular Hgb Conc. 33.6 g/dL (32.0-36.0); Mean Corpuscular Volume 85.7 fL (80.0-100.0); Monocytes # (auto) 0.7 10 ^3/uL (0-1.3); Monocytes % (auto) 6.1 % (0.0-12.0); Neutrophils # (auto) 9.2 10 ^3/uL (1.6-8.6); Neutrophils % (auto) 85.4 % (37.0-80.0); Nucleated Red Blood Cells % 0.1 %; Platelet Count (auto) 413 10^3/uL (140-450); Red Blood Cells 2.67 10^6/uL (4.0-5.20); Red Cell Distribution Width 14.6 % (11.8-14.3); White Blood Cell 10.8 10^3/uL (4.4-10.8)
[2024-11-13 04:10] LABS: Anion Gap 7 (5-15); Carbon Dioxide 23 mmol/L (20-31); Potassium 4.3 mmol/L (3.5-5.1); Sodium 137 mmol/L (136-145)
[2024-11-13 04:15] LABS: BUN/Creatinine Ratio 21.1 (10.0-20.0); Blood Urea Nitrogen 16 mg/dL (9-23)
[2024-11-13 04:19] LABS: Chloride 107 mmol/L (98-107); Glucose 141 mg/dL (74-106)
--- NOTE | 2024-11-13 11:35 | DVHPN2 ---
Subjective The patient seen and examined at bedside. Still complain of leg pain. Reviewed: Care Plan, H&P, Labs, Medications, Previous Orders, Radiology Changes from previous H/P or p: No Changes Objective Vitals Vital Signs Date Time Temp Pulse Resp B/P (MAP) Pulse Ox O2 Delivery O2 Flow Rate FiO2 11/13/24 10:30 85 12 137/63 (87) 99 11/13/24 10:00 Nasal Cannula* 2 28 11/13/24 08:00 97.9 97.9 Intake/Output Intake and Output 11/13/24 07:00 Intake Total 5610.0 ml Output Total 3600 ml Balance 2010.0 ml Intake Oral 835 ml IV Total 3775.0 ml Blood Product 500 ml Other 500 ml Output Urine Total 3600 ml General Appearance: Alert, Oriented X3, Cooperative, No acute distress HEENT: Atraumatic, PERRLA, EOMI, Mucous membr. moist/pink Neck: Supple Lungs: Clear to auscultation, Normal air movement Cardiovascular: Regular rate, Normal S1, Normal S2, No murmurs, Gallops, Rubs Abdomen: Normal bowel sounds, Soft, No tenderness, No hepatospenomegaly Extremities: Other (Limited range of motion due to fracture) Psych/Mental Status: Mental status NL Medications Current Medications Medications Dose Ordered Sig/Tex Route Start Time Stop Time Status Last Admin Dose Admin Lisinopril 20 mg DAILY PO 11/05/24 10:00 11/09/24 09:03 20 MG Acetaminophen/ Hydrocodone Bitart 1 tab Q4HP PRN PO 11/05/24 05:00 11/13/24 07:00 1 TAB Ondansetron HCl 4 mg Q4HP PRN IV 11/05/24 05:00 11/11/24 13:51 4 MG Acetaminophen 650 mg Q6HP PRN PO 11/05/24 05:00 Atorvastatin Calcium 40 mg HS PO 11/06/24 22:00 11/12/24 20:48 40 MG Levothyroxine Sodium 125 mcg QAM@0600 PO 11/08/24 06:00 11/13/24 05:56 125 MCG Ceftriaxone Sodium 50 ml @ 100 mls/hr DAILY@09 IV 11/07/24 20:45 Hold 11/09/24 09:01 100 MLS/HR Cefazolin Sodium/ Dextrose 50 ml @ 50 mls/hr Q8HR IV 11/10/24 14:00 11/13/24 05:56 50 MLS/HR Cefepime HCl 50 ml @ 12.5 mls/hr DAILY IV 11/10/24 10:00 11/13/24 09:17 12.5 MLS/HR Enoxaparin Sodium 40 mg DAILY SC 11/11/24 10:00 11/13/24 09:18 40 MG Diphenhydramine HCl 25 mg Q4HP PRN IV 11/10/24 11:00 Morphine Sulfate 2 mg Q4HPRN PRN IV 11/10/24 17:30 11/12/24 21:30 2 MG Norepinephrine Bitartrate 250 ml @ 3.75 mls/hr Q24H IV 11/10/24 20:00 11/10/24 20:23 3.75 MLS/HR Phenylephrine HCl 250 ml @ 30 mls/hr Q8H20M IV 11/10/24 23:15 11/12/24 06:12 30 MLS/HR Sodium Chloride 1,000 ml @ 150 mls/hr Q6H40M IV 11/11/24 14:45 11/13/24 07:01 150 MLS/HR Docusate Sodium 100 mg BID PO 11/11/24 22:00 11/13/24 09:17 100 MG Laboratory Results Laboratory Tests 11/13/24 03:00 Chemistry Test 11/13/24 03:00 Calcium Level 7.0 mg/dL (8.7-10.4) L Urinalysis Test 11/05/24 02:45 11/07/24 15:36 Urine Hyaline Casts Few /lpf (0 - 2) Urine Color Light-orange (Yellow) Urine Clarity Ex.turbid (Clear) Urine pH 8.5 (5.0-9.0) Urine Specific [place] 1.030 (1.001-1.035) Urine Protein 3+ (Negative) H Urine Ketones 2+ (Negative) H Urine Blood Negative /uL (Negative) Urine Nitrite 2+ (Negative) H Urine Bilirubin Negative (Negative) Urine Urobilinogen 3 mg/dL (Negative) H Urine Leukocyte Esterase 3+ /uL (Negative) Urine RBC 4 /hpf (0 - 4) Urine Microscopic WBC 15 /HPF (0-5) H Urine Squamous Epithelial Cells Few /hpf (<5) Urine Triple Phosphate Crystals Mod /hpf (None Seen) Urine Bacteria Few /hpf (None Seen) H Urine Mucus Few (None Seen) Urine Glucose Normal mg/dL (Normal) Microbiology Microbiology Date/Time Source Procedure Growth Status 11/10/24 17:05 Nose MRSA Screen - Final Complete 11/07/24 15:36 Urine - Midstream Clean Catch Urine Culture - Final Proteus mirabilis Complete Assessment/Plan Assessment/Plan #Right femur fracture s/p femoral bone replacement 11/10 #Acute kidney injury Monitor BMP Creat 1.04>0.7>1.6>1 #Hemorrhagic shock #Acute blood loss anemia Acute blood loss unexpected from surgery Hb drop 11>7.9>8.3>7 Another blood [id number] today Continue levophed and wean Aggressive IVF today #HTN Holding medications Continuing current management. Continuing with physical therapy. We will monitor hemoglobin. Transfuse as needed. Discharge planning. Plan discussed with: Patient Date of Service: Nov 13, 2024 Billing Provider: MICHAEL PERSON MD Common Visit Codes: [id number] INP/OBS CARE(HIGH) MICHAEL PERSON MD Nov 13, 2024 11:35
[2024-11-13] MEDS: GLYCERIN ADULT RECTAL SUPP PR ONE (12:01)
[2024-11-13] MEDS: SODIUM CHLORIDE 0.9% 1,000 ML IV SCH (15:57)
[2024-11-14] VITALS (10 sets, daily range): BP systolic 123–150; BP diastolic 62–76; PULSE 77–98; RESP 18–20; TEMP 97–98.7; O2SAT 92–98
[2024-11-14] MEDS: LACTULOSE 20Gm/30ML SOLN PO PRN (18:22)
--- NOTE | 2024-11-14 23:14 | DVHPN2 ---
Subjective The patient seen and examined at bedside. Still complain of leg pain. Reviewed: Care Plan, H&P, Labs, Medications, Previous Orders, Radiology Changes from previous H/P or p: No Changes Objective Vitals Vital Signs Date Time Temp Pulse Resp B/P (MAP) Pulse Ox O2 Delivery O2 Flow Rate FiO2 11/14/24 21:00 98.7 88 20 131/65 (87) 92 98.7 11/14/24 14:17 2.0 28 11/14/24 08:30 Nasal Cannula* Intake/Output Intake and Output 11/14/24 07:00 Intake Total 854 ml Output Total 1550 ml Balance -696 ml Intake Oral 854 ml Output Urine Total 1550 ml General Appearance: Alert, Oriented X3, Cooperative, No acute distress HEENT: Atraumatic, PERRLA, EOMI, Mucous membr. moist/pink Neck: Supple Lungs: Clear to auscultation, Normal air movement Cardiovascular: Regular rate, Normal S1, Normal S2, No murmurs, Gallops, Rubs Abdomen: Normal bowel sounds, Soft, No tenderness, No hepatospenomegaly Extremities: Other (Limited range of motion due to fracture) Psych/Mental Status: Mental status NL Medications Current Medications Medications Dose Ordered Sig/Tex Route Start Time Stop Time Status Last Admin Dose Admin Lisinopril 20 mg DAILY PO 11/05/24 10:00 11/14/24 10:00 20 MG Ondansetron HCl 4 mg Q4HP PRN IV 11/05/24 05:00 11/11/24 13:51 4 MG Acetaminophen 650 mg Q6HP PRN PO 11/05/24 05:00 Atorvastatin Calcium 40 mg HS PO 11/06/24 22:00 11/14/24 22:25 40 MG Levothyroxine Sodium 125 mcg QAM@0600 PO 11/08/24 06:00 11/14/24 05:36 125 MCG Cefepime HCl 50 ml @ 12.5 mls/hr DAILY IV 11/10/24 10:00 11/14/24 09:57 12.5 MLS/HR Enoxaparin Sodium 40 mg DAILY SC 11/11/24 10:00 11/14/24 09:57 40 MG Diphenhydramine HCl 25 mg Q4HP PRN IV 11/10/24 11:00 Morphine Sulfate 2 mg Q4HPRN PRN IV 11/10/24 17:30 11/14/24 15:27 2 MG Docusate Sodium 100 mg BID PO 11/11/24 22:00 11/14/24 22:25 100 MG Sodium Chloride 1,000 ml @ 75 mls/hr [id number] IV 11/13/24 14:00 11/14/24 06:25 75 MLS/HR Lactulose 30 ml Q6HPRN PRN PO 11/14/24 18:45 11/14/24 18:22 30 ML Laboratory Results Laboratory Tests 11/13/24 03:00 Urinalysis Test 11/05/24 02:45 11/07/24 15:36 Urine Hyaline Casts Few /lpf (0 - 2) Urine Color Light-orange (Yellow) Urine Clarity Ex.turbid (Clear) Urine pH 8.5 (5.0-9.0) Urine Specific [place] 1.030 (1.001-1.035) Urine Protein 3+ (Negative) H Urine Ketones 2+ (Negative) H Urine Blood Negative /uL (Negative) Urine Nitrite 2+ (Negative) H Urine Bilirubin Negative (Negative) Urine Urobilinogen 3 mg/dL (Negative) H Urine Leukocyte Esterase 3+ /uL (Negative) Urine RBC 4 /hpf (0 - 4) Urine Microscopic WBC 15 /HPF (0-5) H Urine Squamous Epithelial Cells Few /hpf (<5) Urine Triple Phosphate Crystals Mod /hpf (None Seen) Urine Bacteria Few /hpf (None Seen) H Urine Mucus Few (None Seen) Urine Glucose Normal mg/dL (Normal) Microbiology Microbiology Date/Time Source Procedure Growth Status 11/10/24 17:05 Nose MRSA Screen - Final Complete 11/07/24 15:36 Urine - Midstream Clean Catch Urine Culture - Final Proteus mirabilis Complete Labs and/or images reviewed: Labs reviewed by me Assessment/Plan Assessment/Plan #Right femur fracture s/p femoral bone replacement 11/10 #Acute kidney injury Monitor BMP Creat 1.04>0.7>1.6>1 #Hemorrhagic shock #Acute blood loss anemia Acute blood loss unexpected from surgery Hb drop 11>7.9>8.3>7 Another blood [id number] today Continue levophed and wean Aggressive IVF today #HTN Holding medications Continuing current management. Continuing with physical therapy. We will monitor hemoglobin. Transfuse as needed. Discharge planning. Plan discussed with: Patient My Orders Orders - MICHAEL PERSON MD Procedure Category Date Status Time Bipap/Cpap For Sleep RT 11/14/24 Logged Apnea 14:08 * Dietary Consult CONS 11/14/24 Transmitted 16:18 Lactulose Oral PHA 11/14/24 In Process 18:45 * Wound Consult CONS 11/14/24 Transmitted Date of Service: Nov 14, 2024 Billing Provider: MICHAEL PERSON MD Common Visit Codes: [id number] INP/OBS CARE(HIGH) MICHAEL PERSON MD Nov 14, 2024 23:14
[2024-11-15] VITALS (9 sets, daily range): BP systolic 106–140; BP diastolic 57–85; PULSE 79–86; RESP 17–19; TEMP 97.8–98.7; O2SAT 91–97
--- NOTE | 2024-11-15 13:59 | DVHPN2 ---
Subjective The patient seen and examined at bedside. Still complain of leg pain. Reviewed: Care Plan, H&P, Labs, Medications, Previous Orders, Radiology Changes from previous H/P or p: No Changes Objective Vitals Vital Signs Date Time Temp Pulse Resp B/P (MAP) Pulse Ox O2 Delivery O2 Flow Rate FiO2 11/15/24 12:50 98.2 79 18 124/61 (82) 93 98.2 11/15/24 08:11 Room Air* 0 21 General Appearance: Alert, Oriented X3, Cooperative, No acute distress HEENT: Atraumatic, PERRLA, EOMI, Mucous membr. moist/pink Neck: Supple Lungs: Clear to auscultation, Normal air movement Cardiovascular: Regular rate, Normal S1, Normal S2, No murmurs, Gallops, Rubs Abdomen: Normal bowel sounds, Soft, No tenderness, No hepatospenomegaly Extremities: Other (Limited range of motion due to fracture) Psych/Mental Status: Mental status NL Medications Current Medications Medications Dose Ordered Sig/Tex Route Start Time Stop Time Status Last Admin Dose Admin Lisinopril 20 mg DAILY PO 11/05/24 10:00 11/15/24 10:34 20 MG Ondansetron HCl 4 mg Q4HP PRN IV 11/05/24 05:00 11/11/24 13:51 4 MG Acetaminophen 650 mg Q6HP PRN PO 11/05/24 05:00 Atorvastatin Calcium 40 mg HS PO 11/06/24 22:00 11/14/24 22:25 40 MG Levothyroxine Sodium 125 mcg QAM@0600 PO 11/08/24 06:00 11/15/24 06:08 125 MCG Cefepime HCl 50 ml @ 12.5 mls/hr DAILY IV 11/10/24 10:00 11/15/24 10:34 12.5 MLS/HR Enoxaparin Sodium 40 mg DAILY SC 11/11/24 10:00 11/15/24 10:34 40 MG Diphenhydramine HCl 25 mg Q4HP PRN IV 11/10/24 11:00 Morphine Sulfate 2 mg Q4HPRN PRN IV 11/10/24 17:30 11/14/24 15:27 2 MG Docusate Sodium 100 mg BID PO 11/11/24 22:00 11/15/24 10:34 100 MG Sodium Chloride 1,000 ml @ 75 mls/hr [id number] IV 11/13/24 14:00 11/15/24 02:02 75 MLS/HR Lactulose 30 ml Q6HPRN PRN PO 11/14/24 18:45 11/15/24 06:08 30 ML Laboratory Results Laboratory Tests 11/13/24 03:00 Urinalysis Test 11/05/24 02:45 11/07/24 15:36 Urine Hyaline Casts Few /lpf (0 - 2) Urine Color Light-orange (Yellow) Urine Clarity Ex.turbid (Clear) Urine pH 8.5 (5.0-9.0) Urine Specific [place] 1.030 (1.001-1.035) Urine Protein 3+ (Negative) H Urine Ketones 2+ (Negative) H Urine Blood Negative /uL (Negative) Urine Nitrite 2+ (Negative) H Urine Bilirubin Negative (Negative) Urine Urobilinogen 3 mg/dL (Negative) H Urine Leukocyte Esterase 3+ /uL (Negative) Urine RBC 4 /hpf (0 - 4) Urine Microscopic WBC 15 /HPF (0-5) H Urine Squamous Epithelial Cells Few /hpf (<5) Urine Triple Phosphate Crystals Mod /hpf (None Seen) Urine Bacteria Few /hpf (None Seen) H Urine Mucus Few (None Seen) Urine Glucose Normal mg/dL (Normal) Microbiology Microbiology Date/Time Source Procedure Growth Status 11/10/24 17:05 Nose MRSA Screen - Final Complete 11/07/24 15:36 Urine - Midstream Clean Catch Urine Culture - Final Proteus mirabilis Complete Assessment/Plan Assessment/Plan #Right femur fracture s/p femoral bone replacement 11/10 #Acute kidney injury Monitor BMP Creat 1.04>0.7>1.6>1 #Hemorrhagic shock #Acute blood loss anemia Acute blood loss unexpected from surgery Hb drop 11>7.9>8.3>7 Another blood [id number] today Continue levophed and wean Aggressive IVF today #HTN Holding medications Continuing current management. Continuing with physical therapy. We will monitor hemoglobin. Transfuse as needed. We will order BiPAP for her sleep apnea. Discharge planning. This medical document was created using an electronic medical record system with [employer] direct computerized dictation system. Although this document has been carefully reviewed, there may still be some phonetic and typographical errors. These areas are purely typographical due to imperfections of the software programs, and do not reflect any compromise in the patient's medical care. Plan discussed with: Patient My Orders Orders - MICHAEL PERSON MD Procedure Category Date Status Time Bipap/Cpap For Sleep RT 11/14/24 Logged Apnea 14:08 * Dietary Consult CONS 11/14/24 Transmitted 16:18 Lactulose Oral PHA 11/14/24 In Process 18:45 * Wound Consult CONS 11/14/24 Transmitted Date of Service: Nov 15, 2024 Billing Provider: MICHAEL PERSON MD Common Visit Codes: [id number] INP/OBS CARE(HIGH) MICHAEL PERSON MD Nov 15, 2024 13:59
[2024-11-16] VITALS (8 sets, daily range): BP systolic 117–139; BP diastolic 41–71; PULSE 75–95; RESP 18–20; TEMP 97.8–98.7; O2SAT 95–99
[2024-11-16] MEDS: HYDROcodone-ACET 5/325MG TAB PO PRN (17:40)
[2024-11-17] VITALS (7 sets, daily range): BP systolic 106–137; BP diastolic 46–68; PULSE 72–90; RESP 16–19; TEMP 97.7–98.6; O2SAT 92–96
[2024-11-17] MEDS ORDERED: MORPHINE SULFATE 4 MG/ML SYR/VIAL IV PRN (08:15)
--- NOTE | 2024-11-17 08:22 | DVHPN2 ---
Subjective The patient seen and examined at bedside. The patient feels little bit better today however still have leg pain Reviewed: Care Plan, H&P, Labs, Medications, Previous Orders, Radiology Changes from previous H/P or p: No Changes Objective Vitals Vital Signs Date Time Temp Pulse Resp B/P (MAP) Pulse Ox O2 Delivery O2 Flow Rate FiO2 11/17/24 05:00 97.7 84 19 106/63 (77) 94 97.7 11/16/24 20:00 Nasal Cannula* 2 28 Intake/Output Intake and Output 11/17/24 07:00 Intake Total 50 ml Balance 50 ml IV Total 50 ml General Appearance: Alert, Oriented X3, Cooperative, No acute distress HEENT: Atraumatic, PERRLA, EOMI, Mucous membr. moist/pink Neck: Supple Lungs: Clear to auscultation, Normal air movement Cardiovascular: Regular rate, Normal S1, Normal S2, No murmurs, Gallops, Rubs Abdomen: Normal bowel sounds, Soft, No tenderness, No hepatospenomegaly Extremities: Other (Limited range of motion due to fracture) Psych/Mental Status: Mental status NL Medications Current Medications Medications Dose Ordered Sig/Tex Route Start Time Stop Time Status Last Admin Dose Admin Lisinopril 20 mg DAILY PO 11/05/24 10:00 11/16/24 10:00 20 MG Ondansetron HCl 4 mg Q4HP PRN IV 11/05/24 05:00 11/11/24 13:51 4 MG Acetaminophen 650 mg Q6HP PRN PO 11/05/24 05:00 Atorvastatin Calcium 40 mg HS PO 11/06/24 22:00 11/16/24 21:25 40 MG Levothyroxine Sodium 125 mcg QAM@0600 PO 11/08/24 06:00 11/17/24 05:21 125 MCG Cefepime HCl 50 ml @ 12.5 mls/hr DAILY IV 11/10/24 10:00 11/16/24 10:00 12.5 MLS/HR Enoxaparin Sodium 40 mg DAILY SC 11/11/24 10:00 11/16/24 10:00 40 MG Diphenhydramine HCl 25 mg Q4HP PRN IV 11/10/24 11:00 Docusate Sodium 100 mg BID PO 11/11/24 22:00 11/16/24 21:26 100 MG Sodium Chloride 1,000 ml @ 75 mls/hr [id number] IV 11/13/24 14:00 11/16/24 21:26 75 MLS/HR Lactulose 30 ml Q6HPRN PRN PO 11/14/24 18:45 11/16/24 17:39 30 ML Acetaminophen/ Hydrocodone Bitart 1 tab Q4HPRN PRN PO 11/16/24 15:15 11/17/24 07:52 1 TAB Morphine Sulfate 2 mg Q4HPRN PRN IV 11/17/24 08:15 11/19/24 20:59 Laboratory Results Laboratory Tests 11/13/24 03:00 Urinalysis Test 11/05/24 02:45 11/07/24 15:36 Urine Hyaline Casts Few /lpf (0 - 2) Urine Color Light-orange (Yellow) Urine Clarity Ex.turbid (Clear) Urine pH 8.5 (5.0-9.0) Urine Specific [place] 1.030 (1.001-1.035) Urine Protein 3+ (Negative) H Urine Ketones 2+ (Negative) H Urine Blood Negative /uL (Negative) Urine Nitrite 2+ (Negative) H Urine Bilirubin Negative (Negative) Urine Urobilinogen 3 mg/dL (Negative) H Urine Leukocyte Esterase 3+ /uL (Negative) Urine RBC 4 /hpf (0 - 4) Urine Microscopic WBC 15 /HPF (0-5) H Urine Squamous Epithelial Cells Few /hpf (<5) Urine Triple Phosphate Crystals Mod /hpf (None Seen) Urine Bacteria Few /hpf (None Seen) H Urine Mucus Few (None Seen) Urine Glucose Normal mg/dL (Normal) Microbiology Microbiology Date/Time Source Procedure Growth Status 11/10/24 17:05 Nose MRSA Screen - Final Complete 11/07/24 15:36 Urine - Midstream Clean Catch Urine Culture - Final Proteus mirabilis Complete Labs and/or images reviewed: Labs reviewed by me Assessment/Plan Assessment/Plan #Right femur fracture s/p femoral bone replacement 11/10 #Acute kidney injury Monitor BMP Creat 1.04>0.7>1.6>1 #Hemorrhagic shock #Acute blood loss anemia Acute blood loss unexpected from surgery Hb drop 11>7.9>8.3>7 Another blood [id number] today Continue levophed and wean Aggressive IVF today #HTN Holding medications Continuing current management. Continuing with physical therapy. We will monitor hemoglobin. Transfuse as needed. Continuing BiPAP for her sleep apnea. Discharge planning when cleared by orthopedic surgeon. This medical document was created using an electronic medical record system with [employer] dictation system. Although this document has been carefully reviewed, there may still be some phonetic and typographical errors. These areas are purely typographical due to imperfections of the software programs, and do not reflect any compromise in the patient's medical care. This medical document was created using an electronic medical record system with [employer] dictation system. Although this document has been carefully reviewed, there may still be some phonetic and typographical errors. These areas are purely typographical due to imperfections of the software programs, and do not reflect any compromise in the patient's medical care. Plan discussed with: Patient My Orders Orders - MICHAEL PERSON MD Procedure Category Date Status Time Hydrocodone-Acet PHA 11/16/24 In Process 5/325mg Tab ([place] 15:15 Date of Service: Nov 16, 2024 Billing Provider: MICHAEL PERSON MD Common Visit Codes: [id number] INP/OBS CARE(HIGH) MICHAEL PERSON MD Nov 17, 2024 08:22
--- NOTE | 2024-11-17 11:57 | DVHPN2 ---
Subjective The patient seen and examined at bedside. The patient feels little bit better today however still have leg pain Reviewed: Care Plan, H&P, Labs, Medications, Previous Orders, Radiology Changes from previous H/P or p: No Changes Objective Vitals Vital Signs Date Time Temp Pulse Resp B/P (MAP) Pulse Ox O2 Delivery O2 Flow Rate FiO2 11/17/24 09:39 113/35 11/17/24 08:48 97.9 83 18 92 97.9 11/17/24 08:00 Nasal Cannula* 2 28 Intake/Output Intake and Output 11/17/24 07:00 Intake Total 50 ml Balance 50 ml IV Total 50 ml General Appearance: Alert, Oriented X3, Cooperative, No acute distress HEENT: Atraumatic, PERRLA, EOMI, Mucous membr. moist/pink Neck: Supple Lungs: Clear to auscultation, Normal air movement Cardiovascular: Regular rate, Normal S1, Normal S2, No murmurs, Gallops, Rubs Abdomen: Normal bowel sounds, Soft, No tenderness, No hepatospenomegaly Extremities: Other (Limited range of motion due to fracture) Psych/Mental Status: Mental status NL Medications Current Medications Medications Dose Ordered Sig/Tex Route Start Time Stop Time Status Last Admin Dose Admin Lisinopril 20 mg DAILY PO 11/05/24 10:00 11/16/24 10:00 20 MG Ondansetron HCl 4 mg Q4HP PRN IV 11/05/24 05:00 11/11/24 13:51 4 MG Acetaminophen 650 mg Q6HP PRN PO 11/05/24 05:00 Atorvastatin Calcium 40 mg HS PO 11/06/24 22:00 11/16/24 21:25 40 MG Levothyroxine Sodium 125 mcg QAM@0600 PO 11/08/24 06:00 11/17/24 05:21 125 MCG Cefepime HCl 50 ml @ 12.5 mls/hr DAILY IV 11/10/24 10:00 11/17/24 09:39 12.5 MLS/HR Enoxaparin Sodium 40 mg DAILY SC 11/11/24 10:00 11/17/24 09:43 40 MG Diphenhydramine HCl 25 mg Q4HP PRN IV 11/10/24 11:00 Docusate Sodium 100 mg BID PO 11/11/24 22:00 11/17/24 09:37 100 MG Sodium Chloride 1,000 ml @ 75 mls/hr [id number] IV 11/13/24 14:00 11/16/24 21:26 75 MLS/HR Lactulose 30 ml Q6HPRN PRN PO 11/14/24 18:45 11/16/24 17:39 30 ML Acetaminophen/ Hydrocodone Bitart 1 tab Q4HPRN PRN PO 11/16/24 15:15 11/17/24 07:52 1 TAB Morphine Sulfate 2 mg Q4HPRN PRN IV 11/17/24 08:15 11/19/24 20:59 Laboratory Results Laboratory Tests 11/13/24 03:00 Urinalysis Test 11/05/24 02:45 11/07/24 15:36 Urine Hyaline Casts Few /lpf (0 - 2) Urine Color Light-orange (Yellow) Urine Clarity Ex.turbid (Clear) Urine pH 8.5 (5.0-9.0) Urine Specific [place] 1.030 (1.001-1.035) Urine Protein 3+ (Negative) H Urine Ketones 2+ (Negative) H Urine Blood Negative /uL (Negative) Urine Nitrite 2+ (Negative) H Urine Bilirubin Negative (Negative) Urine Urobilinogen 3 mg/dL (Negative) H Urine Leukocyte Esterase 3+ /uL (Negative) Urine RBC 4 /hpf (0 - 4) Urine Microscopic WBC 15 /HPF (0-5) H Urine Squamous Epithelial Cells Few /hpf (<5) Urine Triple Phosphate Crystals Mod /hpf (None Seen) Urine Bacteria Few /hpf (None Seen) H Urine Mucus Few (None Seen) Urine Glucose Normal mg/dL (Normal) Microbiology Microbiology Date/Time Source Procedure Growth Status 11/10/24 17:05 Nose MRSA Screen - Final Complete 11/07/24 15:36 Urine - Midstream Clean Catch Urine Culture - Final Proteus mirabilis Complete Assessment/Plan Assessment/Plan #Right femur fracture s/p femoral bone replacement 11/10 #Acute kidney injury Monitor BMP Creat 1.04>0.7>1.6>1 #Hemorrhagic shock #Acute blood loss anemia Acute blood loss unexpected from surgery Hb drop 11>7.9>8.3>7 Another blood qiqtejg4ml today Continue levophed and wean Aggressive IVF today #HTN Holding medications Continuing current management. Continuing with physical therapy. We will monitor hemoglobin. Transfuse as needed. Continuing BiPAP for her sleep apnea. Discharge planning when cleared by orthopedic surgeon. This medical document was created using an electronic medical record system with [employer] dictation system. Although this document has been carefully reviewed, there may still be some phonetic and typographical errors. These areas are purely typographical due to imperfections of the software programs, and do not reflect any compromise in the patient's medical care. This medical document was created using an electronic medical record system with [employer] dictation system. Although this document has been carefully reviewed, there may still be some phonetic and typographical errors. These areas are purely typographical due to imperfections of the software programs, and do not reflect any compromise in the patient's medical care. Plan discussed with: Patient My Orders Orders - MICHAEL PERSON MD Procedure Category Date Status Time Hydrocodone-Acet PHA 11/16/24 In Process 5/325mg Tab ([place] 15:15 Date of Service: Nov 17, 2024 Billing Provider: MICHAEL PERSON MD Common Visit Codes: [id number] INP/OBS CARE(HIGH) MICHAEL PERSON MD Nov 17, 2024 11:57
[2024-11-17] MEDS: MORPHINE SULFATE 4 MG/ML SYR/VIAL IV PRN (12:16)
--- NOTE | 2024-11-17 16:37 | MEDREC ---
[facility] Intervention Section I [facility] Intervention: Review courses of therapy (8 DAYS ON CEFEPIME - PLEASE CONSIDER D/C ANTIBIOTIC IF INFECTION IS NO MORE A CONCERN) [place] WHITTEN PHARMACIST Nov 17, 2024 16:37
[2024-11-18] VITALS (8 sets, daily range): BP systolic 108–133; BP diastolic 48–66; PULSE 66–95; RESP 15–19; TEMP 97.5–98.2; O2SAT 91–95
--- NOTE | 2024-11-18 11:07 | DVHPN2 ---
Subjective The patient seen and examined at bedside. The patient feels little bit better today however still have leg pain Reviewed: Care Plan, H&P, Labs, Medications, Previous Orders, Radiology Changes from previous H/P or p: No Changes Objective Vitals Vital Signs Date Time Temp Pulse Resp B/P (MAP) Pulse Ox O2 Delivery O2 Flow Rate FiO2 11/18/24 10:03 126/59 11/18/24 09:00 98.0 73 15 91 98.0 11/18/24 08:00 Nasal Cannula* 2 28 Intake/Output Intake and Output 11/18/24 07:00 Intake Total 2230 ml Output Total 1500 ml Balance 730 ml Intake Oral 450 ml IV Total 1780 ml Output Urine Total 1500 ml General Appearance: Alert, Oriented X3, Cooperative, No acute distress HEENT: Atraumatic, PERRLA, EOMI, Mucous membr. moist/pink Neck: Supple Lungs: Clear to auscultation, Normal air movement Cardiovascular: Regular rate, Normal S1, Normal S2, No murmurs, Gallops, Rubs Abdomen: Normal bowel sounds, Soft, No tenderness, No hepatospenomegaly Extremities: Other (Limited range of motion due to fracture) Psych/Mental Status: Mental status NL Medications Current Medications Medications Dose Ordered Sig/Tex Route Start Time Stop Time Status Last Admin Dose Admin Lisinopril 20 mg DAILY PO 11/05/24 10:00 11/18/24 10:03 20 MG Ondansetron HCl 4 mg Q4HP PRN IV 11/05/24 05:00 11/11/24 13:51 4 MG Acetaminophen 650 mg Q6HP PRN PO 11/05/24 05:00 Atorvastatin Calcium 40 mg HS PO 11/06/24 22:00 11/17/24 21:20 40 MG Levothyroxine Sodium 125 mcg QAM@0600 PO 11/08/24 06:00 11/18/24 04:57 125 MCG Cefepime HCl 50 ml @ 12.5 mls/hr DAILY IV 11/10/24 10:00 11/18/24 10:03 12.5 MLS/HR Enoxaparin Sodium 40 mg DAILY SC 11/11/24 10:00 11/18/24 10:03 40 MG Diphenhydramine HCl 25 mg Q4HP PRN IV 11/10/24 11:00 Docusate Sodium 100 mg BID PO 11/11/24 22:00 11/18/24 10:03 100 MG Sodium Chloride 1,000 ml @ 75 mls/hr [id number] IV 11/13/24 14:00 11/18/24 00:40 75 MLS/HR Lactulose 30 ml Q6HPRN PRN PO 11/14/24 18:45 11/18/24 10:07 30 ML Acetaminophen/ Hydrocodone Bitart 1 tab Q4HPRN PRN PO 11/16/24 15:15 11/18/24 01:50 1 TAB Morphine Sulfate 2 mg Q4HPRN PRN IV 11/17/24 08:15 11/19/24 20:59 11/18/24 04:58 2 MG Laboratory Results Laboratory Tests 11/13/24 03:00 Urinalysis Test 11/05/24 02:45 11/07/24 15:36 Urine Hyaline Casts Few /lpf (0 - 2) Urine Color Light-orange (Yellow) Urine Clarity Ex.turbid (Clear) Urine pH 8.5 (5.0-9.0) Urine Specific [place] 1.030 (1.001-1.035) Urine Protein 3+ (Negative) H Urine Ketones 2+ (Negative) H Urine Blood Negative /uL (Negative) Urine Nitrite 2+ (Negative) H Urine Bilirubin Negative (Negative) Urine Urobilinogen 3 mg/dL (Negative) H Urine Leukocyte Esterase 3+ /uL (Negative) Urine RBC 4 /hpf (0 - 4) Urine Microscopic WBC 15 /HPF (0-5) H Urine Squamous Epithelial Cells Few /hpf (<5) Urine Triple Phosphate Crystals Mod /hpf (None Seen) Urine Bacteria Few /hpf (None Seen) H Urine Mucus Few (None Seen) Urine Glucose Normal mg/dL (Normal) Microbiology Microbiology Date/Time Source Procedure Growth Status 11/10/24 17:05 Nose MRSA Screen - Final Complete 11/07/24 15:36 Urine - Midstream Clean Catch Urine Culture - Final Proteus mirabilis Complete Labs and/or images reviewed: Labs reviewed by me Assessment/Plan Assessment/Plan #Right femur fracture s/p femoral bone replacement 11/10 #Acute kidney injury Monitor BMP Creat 1.04>0.7>1.6>1 #Hemorrhagic shock #Acute blood loss anemia Acute blood loss unexpected from surgery Hb drop 11>7.9>8.3>7 Another blood spdtgef0vl today Continue levophed and wean Aggressive IVF today #HTN Holding medications Continuing current management. Continuing with physical therapy. We will monitor hemoglobin. Transfuse as needed. Continuing BiPAP for her sleep apnea. Discharge planning when cleared by orthopedic surgeon. Wound care and dressing change today for her left heel. Lab in am. May need more rehab in SNF. DW patient regarding to plan of care. This medical document was created using an electronic medical record system with [employer] dictation system. Although this document has been carefully reviewed, there may still be some phonetic and typographical errors. These areas are purely typographical due to imperfections of the software programs, and do not reflect any compromise in the patient's medical care. This medical document was created using an electronic medical record system with [employer] dictation system. Although this document has been carefully reviewed, there may still be some phonetic and typographical errors. These areas are purely typographical due to imperfections of the software programs, and do not reflect any compromise in the patient's medical care. Plan discussed with: Patient Date of Service: Nov 18, 2024 Billing Provider: MICHAEL PERSON MD Common Visit Codes: [id number] INP/OBS CARE(HIGH) MICHAEL PERSON MD Nov 18, 2024 11:07
[2024-11-19] VITALS (8 sets, daily range): BP systolic 119–135; BP diastolic 51–63; PULSE 72–85; RESP 14–20; TEMP 97.7–99.2; O2SAT 92–98
[2024-11-19 07:49] LABS: Basophils # (auto) 0.1 10 ^3/uL (0-0.2); Basophils % (auto) 0.8 % (0.0-2.0); Eosinophils # (auto) 0.2 10 ^3/uL (0-0.8); Eosinophils % (auto) 1.8 % (0.0-7.0); Hematocrit 26.9 % (36.0-46.0); Lymphocytes # (auto) 1.5 10 ^3/uL (0.4-5.4); Lymphocytes % (auto) 14.6 % (10.0-50.0); Mean Corpuscular Hemoglobin 28.3 pg (28.0-32.0); Mean Corpuscular Hgb Conc. 33.5 g/dL (32.0-36.0); Mean Corpuscular Volume 84.3 fL (80.0-100.0); Monocytes # (auto) 0.7 10 ^3/uL (0-1.3); Neutrophils # (auto) 7.9 10 ^3/uL (1.6-8.6); Neutrophils % (auto) 75.8 % (37.0-80.0); Red Blood Cells 3.19 10^6/uL (4.0-5.20); Red Cell Distribution Width 15.3 % (11.8-14.3); White Blood Cell 10.4 10^3/uL (4.4-10.8)
[2024-11-19 08:12] LABS: Platelet Count (auto) 784 10^3/uL (140-450)
[2024-11-19 08:15] LABS: Calcium 8.8 mg/dL (8.7-10.4); Chloride 108 mmol/L (98-107)
[2024-11-19 08:20] LABS: BUN/Creatinine Ratio 15.3 (10.0-20.0); Glucose 90 mg/dL (74-106)
[2024-11-19 08:21] LABS: Blood Urea Nitrogen 9 mg/dL (9-23)
[2024-11-19 08:45] LABS: Potassium 4.5 mmol/L (3.5-5.1); Sodium 138 mmol/L (136-145)
[2024-11-19 08:46] LABS: Anion Gap 7 (5-15); Carbon Dioxide 23 mmol/L (20-31)
[2024-11-19 09:02] LABS: Platelet Estimate Markedly Increased
--- NOTE | 2024-11-19 17:15 | DVHPN2 ---
Subjective Still has pain right femoral region. Working with PT. Slow improvement. Reviewed: Care Plan, H&P, Labs, Medications, Previous Orders, Radiology Changes from previous H/P or p: No Changes General: Per HPI Objective Vitals Vital Signs Date Time Temp Pulse Resp B/P (MAP) Pulse Ox O2 Delivery O2 Flow Rate FiO2 11/19/24 14:37 80 16 129/63 11/19/24 13:00 97.7 93 97.7 11/19/24 08:00 Room Air* 0 21 Intake/Output Intake and Output 11/19/24 07:00 Intake Total 1225 ml Output Total 1390 ml Balance -165 ml Intake Oral 800 ml IV Total 425 ml Output Urine Total 1375 ml Urine/Stool Mix 15 ml Exam General Appearance: Alert, Oriented X3, Cooperative, No acute distress HEENT: Atraumatic, PERRLA, EOMI, Mucous membr. moist/pink Neck: Supple Lungs: Clear to auscultation, Normal air movement Cardiovascular: Regular rate, Normal S1, Normal S2, No murmurs, Gallops, Rubs Abdomen: Normal bowel sounds, Soft, No tenderness, No hepatospenomegaly Extremities: Other (Limited range of motion due to fracture) Psych/Mental Status: Mental status NL General Appearance: Alert, Oriented X3, Cooperative, No acute distress HEENT: Atraumatic, PERRLA, EOMI, Mucous membr. moist/pink Neck: Supple Lungs: Clear to auscultation, Normal air movement Cardiovascular: Regular rate, Normal S1, Normal S2, No murmurs, Gallops, Rubs Abdomen: Normal bowel sounds, Soft, No tenderness, No hepatospenomegaly Extremities: Other (Limited range of motion due to fracture) Psych/Mental Status: Mental status NL Medications Current Medications Medications Dose Ordered Sig/Tex Route Start Time Stop Time Status Last Admin Dose Admin Lisinopril 20 mg DAILY PO 11/05/24 10:00 11/19/24 09:47 20 MG Ondansetron HCl 4 mg Q4HP PRN IV 11/05/24 05:00 11/11/24 13:51 4 MG Acetaminophen 650 mg Q6HP PRN PO 11/05/24 05:00 Atorvastatin Calcium 40 mg HS PO 11/06/24 22:00 11/18/24 21:38 40 MG Levothyroxine Sodium 125 mcg QAM@0600 PO 11/08/24 06:00 11/19/24 05:58 125 MCG Cefepime HCl 50 ml @ 12.5 mls/hr DAILY IV 11/10/24 10:00 11/19/24 09:48 12.5 MLS/HR Enoxaparin Sodium 40 mg DAILY SC 11/11/24 10:00 11/19/24 09:48 40 MG Diphenhydramine HCl 25 mg Q4HP PRN IV 11/10/24 11:00 Docusate Sodium 100 mg BID PO 11/11/24 22:00 11/19/24 09:47 100 MG Sodium Chloride 1,000 ml @ 75 mls/hr [id number] IV 11/13/24 14:00 11/18/24 16:56 75 MLS/HR Lactulose 30 ml Q6HPRN PRN PO 11/14/24 18:45 11/18/24 10:07 30 ML Acetaminophen/ Hydrocodone Bitart 1 tab Q4HPRN PRN PO 11/16/24 15:15 11/19/24 01:50 1 TAB Morphine Sulfate 2 mg Q4HPRN PRN IV 11/17/24 08:15 11/19/24 20:59 11/19/24 14:37 2 MG Laboratory Results Laboratory Tests 11/19/24 06:19 Chemistry Test 11/19/24 06:19 Calcium Level 8.8 mg/dL (8.7-10.4) Urinalysis Test 11/05/24 02:45 11/07/24 15:36 Urine Hyaline Casts Few /lpf (0 - 2) Urine Color Light-orange (Yellow) Urine Clarity Ex.turbid (Clear) Urine pH 8.5 (5.0-9.0) Urine Specific [place] 1.030 (1.001-1.035) Urine Protein 3+ (Negative) H Urine Ketones 2+ (Negative) H Urine Blood Negative /uL (Negative) Urine Nitrite 2+ (Negative) H Urine Bilirubin Negative (Negative) Urine Urobilinogen 3 mg/dL (Negative) H Urine Leukocyte Esterase 3+ /uL (Negative) Urine RBC 4 /hpf (0 - 4) Urine Microscopic WBC 15 /HPF (0-5) H Urine Squamous Epithelial Cells Few /hpf (<5) Urine Triple Phosphate Crystals Mod /hpf (None Seen) Urine Bacteria Few /hpf (None Seen) H Urine Mucus Few (None Seen) Urine Glucose Normal mg/dL (Normal) Microbiology Microbiology Date/Time Source Procedure Growth Status 11/10/24 17:05 Nose MRSA Screen - Final Complete 11/07/24 15:36 Urine - Midstream Clean Catch Urine Culture - Final Proteus mirabilis Complete Labs and/or images reviewed: Labs reviewed by me, Image(s) reviewed by me Assessment/Plan Assessment/Plan 11/19 taking over the case for today for doctor jacob. Patient has been admitted since 11/05/24. Patient had right distal femur arthroplasty on 11/10. After surgery ortho is recommending wound VAC, left lower extremity with PT and also we have that on right lower extremity PT out of bed. Physical therapy is done and recommending SNF rehab for PT. Patient has very slow progress improving. She needs more PT rehab in acute rehab facility. Patient agrees with the plan. Diet has been advanced, urinary Ng is inserted patient is still wants to keep it until she is more mobile. Displaced and comminuted right distal femur fracture s/p right distal femoral replacement LEVI due to VMN Acute blood loss anemia Hemorrhagic shock Hypertension - hold hypertensive medications Levophed has been weaned off Hemoglobin stable Status post 1 unit PRBC - renal function back to baseline - social consult for SNF placement for acute PT rehab - IV antibiotics cefepime Prn pain control -continue home medications Synthroid, lisinopril 20, Lipitor 40, - IV maintenance fluids Diet cardiac DVT prophylaxis Lovenox 40 subQ daily GI prophylaxis tolerating diet Telemetry Full code Plan discussed with: Patient Date of Service: Nov 19, 2024 Billing Provider: SKYLAR CRUZ MD Common Visit Codes: [id number] INP/OBS CARE(HIGH) SKYLAR CRUZ MD Nov 19, 2024 17:15
[2024-11-20] VITALS (8 sets, daily range): BP systolic 133–139; BP diastolic 57–66; PULSE 74–87; RESP 16–20; TEMP 97.4–98.5; O2SAT 90–98
--- NOTE | 2024-11-20 04:43 | DVHNC2 ---
Central Line Occupation of software licensing specialist: Other (Hospitalist nurse-practitioner) Indication: Hypotension, CVP monitoring, Inability to obtain IV Room prepared for procedure: Yes Relay Man performed hand hygien: Yes Maximal sterile barrier precau: Mask/Eye shield, Sterile gown, Cap, Sterlie gloves, Large sterlie drape Skin Preparation: Chlorhexidine gluconate, Providine iodine Skin preparation completely dr: Yes Insertion site: Right, Internal jugular Central line catheter type: [id number] dialysis Number of lumens: 3 Central line exchanged over a: No Antiseptic ointment applied to: Yes Post Assessment: Chest X-Ray, Proper placement, No Pneumothorax Informed consent obtained: Yes Risks/benefits/alt described: Yes Notes The [facility] Central Line Insertion Practices form was completed immediately following the procedure. A time out was performed. My hands were washed immediately prior to the procedure. I wore a surgical cap, mask with protective eyewear, full gown and sterile gloves throughout the procedure. The patient was placed in Trendelenburg position. The right neck was prepped using chlorhexidine scrub and draped in sterile fashion using a three quarter sheet drape and sterile towels. Skin preparation was allowed to dry prior to skin puncture. Anatomic landmarks were identified. Anesthesia was achieved over the vein using 1% lidocaine. Using real-time ultrasound, with sterile probe cover and sterile gel, the introducer needle was inserted into the vein under direct ultrasound visualization. Venous blood was withdrawn. The syringe was removed and a guidewire was advanced into the introducer needle. The guidewire was visualized in the appropriate vein by ultrasound. A small incision was made at the skin surface with a scalpel and the introducer needle was exchanged for a dilator over the guidewire. After appropriate dilation was obtained, the dilator was exchanged over the wire for an central venous catheter. The wire was removed and the catheter was sutured in place . A biopatch was placed at the insertion site. A sterile op-site was placed over the catheter and biopatch. The patient tolerated the procedure without any hemodynamic compromise. At time of procedure completion, all ports aspirated and flushed properly. Post-procedure chest x-ray : Shows adequate positioning of the catheter for use. Date of Service: Nov 10, 2024 [facility] Common Visit Codes: PROCEDURE ONLY Procedure Codes: [id number] NON-TUNNEL CV CATH [facility] Nov 20, 2024 04:43
[2024-11-20 07:41] LABS: Basophils # (auto) 0.1 10 ^3/uL (0-0.2); Hemoglobin 9.1 g/dL (12.2-16.2); Lymphocytes # (auto) 1.4 10 ^3/uL (0.4-5.4); Neutrophils # (auto) 7.5 10 ^3/uL (1.6-8.6); White Blood Cell 9.9 10^3/uL (4.4-10.8)
[2024-11-20 07:44] LABS: Basophils % (auto) 0.9 % (0.0-2.0); Eosinophils # (auto) 0.1 10 ^3/uL (0-0.8); Eosinophils % (auto) 1.5 % (0.0-7.0); Hematocrit 26.8 % (36.0-46.0); Lymphocytes % (auto) 14.1 % (10.0-50.0); Mean Corpuscular Hemoglobin 28.8 pg (28.0-32.0); Mean Corpuscular Volume 84.6 fL (80.0-100.0); Monocytes # (auto) 0.8 10 ^3/uL (0-1.3); Monocytes % (auto) 7.8 % (0.0-12.0); Neutrophils % (auto) 75.7 % (37.0-80.0); Red Blood Cells 3.16 10^6/uL (4.0-5.20); Red Cell Distribution Width 15.4 % (11.8-14.3)
[2024-11-20 07:52] LABS: Platelet Count (auto) 811 10^3/uL (140-450)
[2024-11-20 07:57] LABS: Anion Gap 9 (5-15); Calcium 8.8 mg/dL (8.7-10.4); Carbon Dioxide 24 mmol/L (20-31)
[2024-11-20 07:58] LABS: Chloride 105 mmol/L (98-107); Potassium 4.4 mmol/L (3.5-5.1); Sodium 138 mmol/L (136-145)
[2024-11-20 08:02] LABS: BUN/Creatinine Ratio 13.4 (10.0-20.0); Blood Urea Nitrogen 9 mg/dL (9-23); Glucose 82 mg/dL (74-106)
--- NOTE | 2024-11-20 15:24 | DVHPN2 ---
Subjective Still has pain right femoral region. Working with PT. Slow improvement. Reviewed: Care Plan, H&P, Labs, Medications, Previous Orders, Radiology Changes from previous H/P or p: No Changes General: Per HPI Objective Vitals Vital Signs Date Time Temp Pulse Resp B/P (MAP) Pulse Ox O2 Delivery O2 Flow Rate FiO2 11/20/24 13:00 98.2 76 18 133/63 (86) 92 98.2 11/20/24 08:16 Room Air* 0 21 Intake/Output Intake and Output 11/20/24 07:00 Intake Total 1550 ml Output Total 3200 ml Balance -1650 ml Intake Oral 500 ml IV Total 1050 ml Output Urine Total 3200 ml Exam General Appearance: Alert, Oriented X3, Cooperative, No acute distress HEENT: Atraumatic, PERRLA, EOMI, Mucous membr. moist/pink Neck: Supple Lungs: Clear to auscultation, Normal air movement Cardiovascular: Regular rate, Normal S1, Normal S2, No murmurs, Gallops, Rubs Abdomen: Normal bowel sounds, Soft, No tenderness, No hepatospenomegaly Extremities: Other (Limited range of motion due to fracture) Psych/Mental Status: Mental status NL General Appearance: Alert, Oriented X3, Cooperative, No acute distress HEENT: Atraumatic, PERRLA, EOMI, Mucous membr. moist/pink Neck: Supple Lungs: Clear to auscultation, Normal air movement Cardiovascular: Regular rate, Normal S1, Normal S2, No murmurs, Gallops, Rubs Abdomen: Normal bowel sounds, Soft, No tenderness, No hepatospenomegaly Extremities: Other (Limited range of motion due to fracture) Psych/Mental Status: Mental status NL Medications Current Medications Medications Dose Ordered Sig/Tex Route Start Time Stop Time Status Last Admin Dose Admin Lisinopril 20 mg DAILY PO 11/05/24 10:00 11/20/24 10:17 20 MG Ondansetron HCl 4 mg Q4HP PRN IV 11/05/24 05:00 11/11/24 13:51 4 MG Acetaminophen 650 mg Q6HP PRN PO 11/05/24 05:00 Atorvastatin Calcium 40 mg HS PO 11/06/24 22:00 11/19/24 20:51 40 MG Levothyroxine Sodium 125 mcg QAM@0600 PO 11/08/24 06:00 11/20/24 05:39 125 MCG Cefepime HCl 50 ml @ 12.5 mls/hr DAILY IV 11/10/24 10:00 11/20/24 10:16 12.5 MLS/HR Enoxaparin Sodium 40 mg DAILY SC 11/11/24 10:00 11/20/24 10:16 40 MG Diphenhydramine HCl 25 mg Q4HP PRN IV 11/10/24 11:00 Docusate Sodium 100 mg BID PO 11/11/24 22:00 11/20/24 10:16 100 MG Sodium Chloride 1,000 ml @ 75 mls/hr [id number] IV 11/13/24 14:00 11/20/24 02:02 75 MLS/HR Lactulose 30 ml Q6HPRN PRN PO 11/14/24 18:45 11/18/24 10:07 30 ML Acetaminophen/ Hydrocodone Bitart 1 tab Q4HPRN PRN PO 11/16/24 15:15 11/20/24 09:10 1 TAB Morphine Sulfate 2 mg Q4HPRN PRN IV 11/20/24 04:45 Laboratory Results Laboratory Tests 11/20/24 05:34 Chemistry Test 11/20/24 05:34 Calcium Level 8.8 mg/dL (8.7-10.4) Urinalysis Test 11/05/24 02:45 11/07/24 15:36 Urine Hyaline Casts Few /lpf (0 - 2) Urine Color Light-orange (Yellow) Urine Clarity Ex.turbid (Clear) Urine pH 8.5 (5.0-9.0) Urine Specific [place] 1.030 (1.001-1.035) Urine Protein 3+ (Negative) H Urine Ketones 2+ (Negative) H Urine Blood Negative /uL (Negative) Urine Nitrite 2+ (Negative) H Urine Bilirubin Negative (Negative) Urine Urobilinogen 3 mg/dL (Negative) H Urine Leukocyte Esterase 3+ /uL (Negative) Urine RBC 4 /hpf (0 - 4) Urine Microscopic WBC 15 /HPF (0-5) H Urine Squamous Epithelial Cells Few /hpf (<5) Urine Triple Phosphate Crystals Mod /hpf (None Seen) Urine Bacteria Few /hpf (None Seen) H Urine Mucus Few (None Seen) Urine Glucose Normal mg/dL (Normal) Microbiology Microbiology Date/Time Source Procedure Growth Status 11/10/24 17:05 Nose MRSA Screen - Final Complete 11/07/24 15:36 Urine - Midstream Clean Catch Urine Culture - Final Proteus mirabilis Complete Labs and/or images reviewed: Labs reviewed by me, Image(s) reviewed by me Assessment/Plan Assessment/Plan 11/19 taking over the case for today for doctor jacob. Patient has been admitted since 11/05/24. Patient had right distal femur arthroplasty on 11/10. After surgery ortho is recommending wound VAC, left lower extremity with PT and also we have that on right lower extremity PT out of bed. Physical therapy is done and recommending SNF rehab for PT. Patient has very slow progress improving. She needs more PT rehab in acute rehab facility. Patient agrees with the plan. Diet has been advanced, urinary Ng is inserted patient is still wants to keep it until she is more mobile. 11/20 patient this a.m. working with PT. Patient's son is at bedside. Both are aware need for acute PT rehab and patient agrees to have placement. Patient's son has plenty of questions were all of which were answered and addressed. We will continue PT rehab blood pressure is controlled. No further indication for IV antibiotics. We will stop IV antibiotics today. Patient has new onset thrombocytosis since yesterday. Unknown reason. We will get peripheral smear and do further workup if needed. Likely reactive with 0. Displaced and comminuted right distal femur fracture s/p right distal femoral replacement LEVI due to VMN Acute blood loss anemia Hemorrhagic shock Hypertension Thrombocytosis, likely reactive - hold hypertensive medications Levophed has been weaned off Hemoglobin stable Status post 1 unit PRBC - renal function back to baseline - social consult for SNF placement for acute PT rehab - IV antibiotics cefepime Prn pain control -continue home medications Synthroid, lisinopril 20, Lipitor 40, - IV maintenance fluids Diet cardiac DVT prophylaxis Lovenox 40 subQ daily GI prophylaxis tolerating diet Telemetry Full code Plan discussed with: Patient My Orders Orders - SKYLAR CRUZ MD Procedure Category Date Status Time * [employer]le [employer]er CONS 11/19/24 Transmitted Consult Date of Service: Nov 20, 2024 Billing Provider: SKYLAR CRUZ MD Common Visit Codes: [id number] INP/OBS CARE(HIGH) SKYLAR CRUZ MD Nov 20, 2024 15:24
[2024-11-20] MEDS: MORPHINE SULFATE INJ 2 MG/ml SYRG IV PRN (16:44)
[2024-11-21] VITALS (9 sets, daily range): BP systolic 99–146; BP diastolic 42–95; PULSE 67–87; RESP 17–20; TEMP 97.6–98.6; O2SAT 90–99
[2024-11-21 06:07] LABS: Basophils # (auto) 0.1 10 ^3/uL (0-0.2); Eosinophils # (auto) 0.2 10 ^3/uL (0-0.8); Eosinophils % (auto) 2.1 % (0.0-7.0); Hemoglobin 9.3 g/dL (12.2-16.2); Monocytes # (auto) 0.6 10 ^3/uL (0-1.3)
[2024-11-21 06:09] LABS: Basophils % (auto) 1.1 % (0.0-2.0); Hematocrit 28.2 % (36.0-46.0); Lymphocytes # (auto) 1.2 10 ^3/uL (0.4-5.4); Lymphocytes % (auto) 13.5 % (10.0-50.0); Mean Corpuscular Hgb Conc. 32.9 g/dL (32.0-36.0); Monocytes % (auto) 6.7 % (0.0-12.0); Neutrophils % (auto) 76.6 % (37.0-80.0); Nucleated Red Blood Cells % 0.1 %; Red Blood Cells 3.32 10^6/uL (4.0-5.20); Red Cell Distribution Width 15.7 % (11.8-14.3); White Blood Cell 9.1 10^3/uL (4.4-10.8)
[2024-11-21 06:18] LABS: Anion Gap 8 (5-15); Carbon Dioxide 25 mmol/L (20-31); Chloride 106 mmol/L (98-107); Potassium 4.4 mmol/L (3.5-5.1); Sodium 139 mmol/L (136-145)
[2024-11-21 06:23] LABS: Platelet Count (auto) 748 10^3/uL (140-450)
[2024-11-21 06:24] LABS: BUN/Creatinine Ratio 14.1 (10.0-20.0); Glucose 87 mg/dL (74-106)
[2024-11-21 06:29] LABS: Blood Urea Nitrogen 9 mg/dL (9-23); Calcium 8.2 mg/dL (8.7-10.4)
--- NOTE | 2024-11-21 15:22 | DVHPN2 ---
Subjective Still has pain right femoral region. Working with PT. Slow improvement. Reviewed: Care Plan, H&P, Labs, Medications, Previous Orders, Radiology Changes from previous H/P or p: No Changes General: Per HPI Objective Vitals Vital Signs Date Time Temp Pulse Resp B/P (MAP) Pulse Ox O2 Delivery O2 Flow Rate FiO2 11/21/24 13:00 98.6 72 18 111/60 (77) 92 98.6 11/21/24 08:11 Room Air* 0 21 Intake/Output Intake and Output 11/21/24 07:00 Intake Total 1800 ml Output Total 1300 ml Balance 500 ml Intake Oral 800 ml IV Total 1000 ml Output Urine Total 1300 ml Exam General Appearance: Alert, Oriented X3, Cooperative, No acute distress HEENT: Atraumatic, PERRLA, EOMI, Mucous membr. moist/pink Neck: Supple Lungs: Clear to auscultation, Normal air movement Cardiovascular: Regular rate, Normal S1, Normal S2, No murmurs, Gallops, Rubs Abdomen: Normal bowel sounds, Soft, No tenderness, No hepatospenomegaly Extremities: Other (Limited range of motion due to fracture) Psych/Mental Status: Mental status NL General Appearance: Alert, Oriented X3, Cooperative, No acute distress HEENT: Atraumatic, PERRLA, EOMI, Mucous membr. moist/pink Neck: Supple Lungs: Clear to auscultation, Normal air movement Cardiovascular: Regular rate, Normal S1, Normal S2, No murmurs, Gallops, Rubs Abdomen: Normal bowel sounds, Soft, No tenderness, No hepatospenomegaly Extremities: Other (Limited range of motion due to fracture) Psych/Mental Status: Mental status NL Medications Current Medications Medications Dose Ordered Sig/Tex Route Start Time Stop Time Status Last Admin Dose Admin Lisinopril 20 mg DAILY PO 11/05/24 10:00 11/21/24 09:57 20 MG Ondansetron HCl 4 mg Q4HP PRN IV 11/05/24 05:00 11/11/24 13:51 4 MG Acetaminophen 650 mg Q6HP PRN PO 11/05/24 05:00 Atorvastatin Calcium 40 mg HS PO 11/06/24 22:00 11/20/24 21:33 40 MG Levothyroxine Sodium 125 mcg QAM@0600 PO 11/08/24 06:00 11/21/24 05:37 125 MCG Enoxaparin Sodium 40 mg DAILY SC 11/11/24 10:00 11/21/24 09:56 40 MG Diphenhydramine HCl 25 mg Q4HP PRN IV 11/10/24 11:00 Docusate Sodium 100 mg BID PO 11/11/24 22:00 11/21/24 09:56 100 MG Sodium Chloride 1,000 ml @ 75 mls/hr [id number] IV 11/13/24 14:00 11/21/24 04:45 75 MLS/HR Lactulose 30 ml Q6HPRN PRN PO 11/14/24 18:45 11/18/24 10:07 30 ML Acetaminophen/ Hydrocodone Bitart 1 tab Q4HPRN PRN PO 11/16/24 15:15 11/21/24 09:56 1 TAB Morphine Sulfate 2 mg Q4HPRN PRN IV 11/20/24 04:45 11/21/24 04:32 2 MG Laboratory Results Laboratory Tests 11/21/24 05:37 Chemistry Test 11/21/24 05:37 Calcium Level 8.2 mg/dL (8.7-10.4) L Urinalysis Test 11/05/24 02:45 11/07/24 15:36 Urine Hyaline Casts Few /lpf (0 - 2) Urine Color Light-orange (Yellow) Urine Clarity Ex.turbid (Clear) Urine pH 8.5 (5.0-9.0) Urine Specific [place] 1.030 (1.001-1.035) Urine Protein 3+ (Negative) H Urine Ketones 2+ (Negative) H Urine Blood Negative /uL (Negative) Urine Nitrite 2+ (Negative) H Urine Bilirubin Negative (Negative) Urine Urobilinogen 3 mg/dL (Negative) H Urine Leukocyte Esterase 3+ /uL (Negative) Urine RBC 4 /hpf (0 - 4) Urine Microscopic WBC 15 /HPF (0-5) H Urine Squamous Epithelial Cells Few /hpf (<5) Urine Triple Phosphate Crystals Mod /hpf (None Seen) Urine Bacteria Few /hpf (None Seen) H Urine Mucus Few (None Seen) Urine Glucose Normal mg/dL (Normal) Microbiology Microbiology Date/Time Source Procedure Growth Status 11/10/24 17:05 Nose MRSA Screen - Final Complete 11/07/24 15:36 Urine - Midstream Clean Catch Urine Culture - Final Proteus mirabilis Complete Labs and/or images reviewed: Labs reviewed by me, Image(s) reviewed by me Assessment/Plan Assessment/Plan 11/19 taking over the case for today for doctor jacob. Patient has been admitted since 11/05/24. Patient had right distal femur arthroplasty on 11/10. After surgery ortho is recommending wound VAC, left lower extremity with PT and also we have that on right lower extremity PT out of bed. Physical therapy is done and recommending SNF rehab for PT. Patient has very slow progress improving. She needs more PT rehab in acute rehab facility. Patient agrees with the plan. Diet has been advanced, urinary Ng is inserted patient is still wants to keep it until she is more mobile. 11/20 patient this a.m. working with PT. Patient's son is at bedside. Both are aware need for acute PT rehab and patient agrees to have placement. Patient's son has plenty of questions were all of which were answered and addressed. We will continue PT rehab blood pressure is controlled. No further indication for IV antibiotics. We will stop IV antibiotics today. Patient has new onset thrombocytosis since yesterday. Unknown reason. We will get peripheral smear and do further workup if needed. Likely reactive 2/2 trauma/surgery 11/21- patient continues to work with PT. Platelets appear to have topped out yesterday at 811k. Peripheral smear was ordered, pending eval. Platelets were normal when patient came in at 200s. This is likely reactive but be eval touch base with Hematology out of precaution. We will continue prophylactic DVT, we will switch to Eliquis for outpatient rehab, 2 weeks. Per social note bed and SNF is set up. Once cleared by Hematology, likely bite tonight/over weekend. Patient is otherwise stable for discharge for PT rehab in SNF. Patient's son wanted more information related to surgery. Ortho is informed and we will give son Toney call on Sunday. Patient was adequately treated for UTI for ten days with cefepime. Urine culture has pansensitive Klebsiella, we will give ceftriaxone the patient leaves to sniff rehab. No further antibiotics needed. Patient's ambulation is still very limited although she is working with PT and there is progression. We will leave the Ng inserted until she is able to transfer herself without assistance to bedside commode. Once this occurs patient can have Ng removed likely during rehab at SNF. No further antibiotics after discharge to SNF. Displaced and comminuted right distal femur fracture s/p right distal femoral replacement LEVI due to VMN Acute blood loss anemia Hemorrhagic shock Hypertension Thrombocytosis, likely reactive - hold hypertensive medications Levophed has been weaned off Hemoglobin stable Status post 1 unit PRBC - renal function back to baseline - social consult for SNF placement for acute PT rehab - IV antibiotics cefepime Prn pain control -continue home medications Synthroid, lisinopril 20, Lipitor 40, - IV maintenance fluids Diet cardiac DVT prophylaxis Lovenox 40 subQ daily GI prophylaxis tolerating diet Telemetry Full code Plan discussed with: Patient My Orders Orders - SKYLAR CRUZ MD Procedure Category Date Status Time * Hematology/Oncology CONS 11/21/24 Transmitted Consult 12:40 Date of Service: Nov 21, 2024 Billing Provider: SKYLAR CRUZ MD Common Visit Codes: [id number] INP/OBS CARE(HIGH) SKYLAR CRUZ MD Nov 21, 2024 15:22
[2024-11-21] MEDS: cefTRIAXone 1GM/50ML D5W 50 ML IV SCH (16:40)
[2024-11-22] VITALS (8 sets, daily range): BP systolic 119–134; BP diastolic 61–70; PULSE 68–86; RESP 17–20; TEMP 97.3–97.9; O2SAT 91–99
--- NOTE | 2024-11-22 12:47 | DVHPN2 ---
Reviewed: Care Plan, H&P, Labs, Medications, Previous Orders, Radiology Changes from previous H/P or p: No Changes General: Per HPI Objective Vitals Vital Signs Date Time Temp Pulse Resp B/P (MAP) Pulse Ox O2 Delivery O2 Flow Rate FiO2 11/22/24 09:32 119/64 11/22/24 09:06 97.6 82 17 96 97.6 11/22/24 08:01 Room Air* 0 21 Intake/Output Intake and Output 11/22/24 07:00 Intake Total 600 ml Output Total 1300 ml Balance -700 ml Intake Oral 600 ml Output Urine Total 1300 ml General Appearance: Alert, Oriented X3, Cooperative, No acute distress HEENT: Atraumatic, PERRLA, EOMI, Mucous membr. moist/pink Neck: Supple Lungs: Clear to auscultation, Normal air movement Cardiovascular: Regular rate, Normal S1, Normal S2, No murmurs, Gallops, Rubs Abdomen: Normal bowel sounds, Soft, No tenderness, No hepatospenomegaly Extremities: Other (Limited range of motion due to fracture) Psych/Mental Status: Mental status NL Medications Current Medications Medications Dose Ordered Sig/Tex Route Start Time Stop Time Status Last Admin Dose Admin Lisinopril 20 mg DAILY PO 11/05/24 10:00 11/22/24 09:32 20 MG Ondansetron HCl 4 mg Q4HP PRN IV 11/05/24 05:00 11/11/24 13:51 4 MG Acetaminophen 650 mg Q6HP PRN PO 11/05/24 05:00 Atorvastatin Calcium 40 mg HS PO 11/06/24 22:00 11/21/24 21:23 40 MG Levothyroxine Sodium 125 mcg QAM@0600 PO 11/08/24 06:00 11/22/24 06:09 125 MCG Enoxaparin Sodium 40 mg DAILY SC 11/11/24 10:00 11/22/24 09:31 40 MG Diphenhydramine HCl 25 mg Q4HP PRN IV 11/10/24 11:00 Docusate Sodium 100 mg BID PO 11/11/24 22:00 11/21/24 21:22 100 MG Sodium Chloride 1,000 ml @ 75 mls/hr [id number] IV 11/13/24 14:00 11/22/24 11:26 75 MLS/HR Lactulose 30 ml Q6HPRN PRN PO 11/14/24 18:45 11/18/24 10:07 30 ML Acetaminophen/ Hydrocodone Bitart 1 tab Q4HPRN PRN PO 11/16/24 15:15 11/22/24 09:24 1 TAB Morphine Sulfate 2 mg Q4HPRN PRN IV 11/20/24 04:45 11/21/24 22:56 2 MG Ceftriaxone Sodium 50 ml @ 100 mls/hr DAILY@09 IV 11/21/24 16:00 11/22/24 09:09 100 MLS/HR Laboratory Results Laboratory Tests 11/21/24 05:37 Urinalysis Test 11/05/24 02:45 11/07/24 15:36 Urine Hyaline Casts Few /lpf (0 - 2) Urine Color Light-orange (Yellow) Urine Clarity Ex.turbid (Clear) Urine pH 8.5 (5.0-9.0) Urine Specific [place] 1.030 (1.001-1.035) Urine Protein 3+ (Negative) H Urine Ketones 2+ (Negative) H Urine Blood Negative /uL (Negative) Urine Nitrite 2+ (Negative) H Urine Bilirubin Negative (Negative) Urine Urobilinogen 3 mg/dL (Negative) H Urine Leukocyte Esterase 3+ /uL (Negative) Urine RBC 4 /hpf (0 - 4) Urine Microscopic WBC 15 /HPF (0-5) H Urine Squamous Epithelial Cells Few /hpf (<5) Urine Triple Phosphate Crystals Mod /hpf (None Seen) Urine Bacteria Few /hpf (None Seen) H Urine Mucus Few (None Seen) Urine Glucose Normal mg/dL (Normal) Microbiology Microbiology Date/Time Source Procedure Growth Status 11/10/24 17:05 Nose MRSA Screen - Final Complete 11/07/24 15:36 Urine - Midstream Clean Catch Urine Culture - Final Proteus mirabilis Complete Labs and/or images reviewed: Labs reviewed by me, Image(s) reviewed by me Assessment/Plan Assessment/Plan Covering for Dr. Johnson Displaced and comminuted right distal femur fracture s/p right distal femoral replacement arthroplasty LEVI due to VMN Acute blood loss anemia Hemorrhagic shock Hypertension Thrombocytosis, likely reactive; hematology consult pending for Pop[place] Continue current management Physical therapy Plan discussed with: Patient Date of Service: Nov 22, 2024 Billing Provider: PIYUSH JESUS MD Common Visit Codes: [id number] INP/OBS CARE(HIGH) PIYUSH JESUS MD Nov 22, 2024 12:47
[2024-11-23] VITALS (10 sets, daily range): BP systolic 125–134; BP diastolic 65–82; PULSE 68–88; RESP 18–19; TEMP 97–98.4; O2SAT 95–98
--- NOTE | 2024-11-23 08:36 | DVHPN2 ---
Reviewed: Care Plan, H&P, Labs, Medications, Previous Orders, Radiology Changes from previous H/P or p: No Changes General: Per HPI Objective Vitals Vital Signs Date Time Temp Pulse Resp B/P (MAP) Pulse Ox O2 Delivery O2 Flow Rate FiO2 11/23/24 05:00 97.8 77 18 126/78 (94) 98 97.8 11/22/24 20:00 Room Air* 0 21 Intake/Output Intake and Output 11/23/24 07:00 Intake Total 675 ml Balance 675 ml IV Total 675 ml General Appearance: Alert, Oriented X3, Cooperative, No acute distress HEENT: Atraumatic, PERRLA, EOMI, Mucous membr. moist/pink Neck: Supple Lungs: Clear to auscultation, Normal air movement Cardiovascular: Regular rate, Normal S1, Normal S2, No murmurs, Gallops, Rubs Abdomen: Normal bowel sounds, Soft, No tenderness, No hepatospenomegaly Extremities: Other (Limited range of motion due to fracture) Psych/Mental Status: Mental status NL Medications Current Medications Medications Dose Ordered Sig/Tex Route Start Time Stop Time Status Last Admin Dose Admin Lisinopril 20 mg DAILY PO 11/05/24 10:00 11/22/24 09:32 20 MG Ondansetron HCl 4 mg Q4HP PRN IV 11/05/24 05:00 11/11/24 13:51 4 MG Acetaminophen 650 mg Q6HP PRN PO 11/05/24 05:00 Atorvastatin Calcium 40 mg HS PO 11/06/24 22:00 11/22/24 21:44 40 MG Levothyroxine Sodium 125 mcg QAM@0600 PO 11/08/24 06:00 11/23/24 05:02 125 MCG Diphenhydramine HCl 25 mg Q4HP PRN IV 11/10/24 11:00 Docusate Sodium 100 mg BID PO 11/11/24 22:00 11/22/24 21:44 100 MG Sodium Chloride 1,000 ml @ 75 mls/hr [id number] IV 11/13/24 14:00 11/22/24 21:45 75 MLS/HR Lactulose 30 ml Q6HPRN PRN PO 11/14/24 18:45 11/18/24 10:07 30 ML Acetaminophen/ Hydrocodone Bitart 1 tab Q4HPRN PRN PO 11/16/24 15:15 11/23/24 04:10 1 TAB Morphine Sulfate 2 mg Q4HPRN PRN IV 11/20/24 04:45 11/23/24 00:59 2 MG Ceftriaxone Sodium 50 ml @ 100 mls/hr DAILY@09 IV 11/21/24 16:00 11/22/24 09:09 100 MLS/HR Laboratory Results Laboratory Tests 11/21/24 05:37 Urinalysis Test 11/05/24 02:45 11/07/24 15:36 Urine Hyaline Casts Few /lpf (0 - 2) Urine Color Light-orange (Yellow) Urine Clarity Ex.turbid (Clear) Urine pH 8.5 (5.0-9.0) Urine Specific [place] 1.030 (1.001-1.035) Urine Protein 3+ (Negative) H Urine Ketones 2+ (Negative) H Urine Blood Negative /uL (Negative) Urine Nitrite 2+ (Negative) H Urine Bilirubin Negative (Negative) Urine Urobilinogen 3 mg/dL (Negative) H Urine Leukocyte Esterase 3+ /uL (Negative) Urine RBC 4 /hpf (0 - 4) Urine Microscopic WBC 15 /HPF (0-5) H Urine Squamous Epithelial Cells Few /hpf (<5) Urine Triple Phosphate Crystals Mod /hpf (None Seen) Urine Bacteria Few /hpf (None Seen) H Urine Mucus Few (None Seen) Urine Glucose Normal mg/dL (Normal) Microbiology Microbiology Date/Time Source Procedure Growth Status 11/10/24 17:05 Nose MRSA Screen - Final Complete 11/07/24 15:36 Urine - Midstream Clean Catch Urine Culture - Final Proteus mirabilis Complete Labs and/or images reviewed: Labs reviewed by me, Image(s) reviewed by me Assessment/Plan Assessment/Plan Covering for Dr. Johnson Displaced and comminuted right distal femur fracture s/p right distal femoral replacement arthroplasty LEVI due to VMN Acute blood loss anemia Hemorrhagic shock Hypertension Thrombocytosis, likely reactive; hematology consult pending for Andrea Continue current management Physical therapy Plan discussed with: Patient Date of Service: Nov 23, 2024 Billing Provider: PIYUSH JESUS MD Common Visit Codes: [id number] INP/OBS CARE(HIGH) PIYUSH JESUS MD Nov 23, 2024 08:36
[2024-11-24] VITALS (9 sets, daily range): BP systolic 113–147; BP diastolic 61–80; PULSE 70–84; RESP 18–22; TEMP 97.6–98.6; O2SAT 91–98
[2024-11-24 10:02] LABS: Basophils # (auto) 0.1 10 ^3/uL (0-0.2); Eosinophils # (auto) 0.1 10 ^3/uL (0-0.8); Eosinophils % (auto) 1.9 % (0.0-7.0); Hematocrit 27.9 % (36.0-46.0); Hemoglobin 9.4 g/dL (12.2-16.2); Lymphocytes # (auto) 1.2 10 ^3/uL (0.4-5.4); Lymphocytes % (auto) 15.9 % (10.0-50.0); Mean Corpuscular Hemoglobin 28.6 pg (28.0-32.0); Mean Corpuscular Hgb Conc. 33.6 g/dL (32.0-36.0); Mean Corpuscular Volume 85.2 fL (80.0-100.0); Monocytes # (auto) 0.5 10 ^3/uL (0-1.3); Monocytes % (auto) 6.8 % (0.0-12.0); Neutrophils # (auto) 5.8 10 ^3/uL (1.6-8.6); Neutrophils % (auto) 74.4 % (37.0-80.0); Nucleated Red Blood Cells % 0.1 %; Platelet Count (auto) 604 10^3/uL (140-450); Red Blood Cells 3.28 10^6/uL (4.0-5.20); Red Cell Distribution Width 16.3 % (11.8-14.3); White Blood Cell 7.8 10^3/uL (4.4-10.8)
[2024-11-24 10:19] LABS: Alanine Aminotransferase 14 U/L (7-40); Alkaline Phosphatase 82 U/L (46-116); Anion Gap 9 (5-15); Aspartate Aminotransferase 32 U/L (13-40); BUN/Creatinine Ratio 12.5 (10.0-20.0); Bilirubin, Total 0.6 mg/dL (0.2-1.0); Carbon Dioxide 26 mmol/L (20-31); Chloride 105 mmol/L (98-107); Glucose 90 mg/dL (74-106); Potassium 4.3 mmol/L (3.5-5.1); Sodium 140 mmol/L (136-145)
[2024-11-24 10:27] LABS: Albumin 3.2 g/dL (3.2-4.8); Blood Urea Nitrogen 7 mg/dL (9-23); Total Protein 5.4 g/dL (5.7-8.2)
--- NOTE | 2024-11-24 14:14 | DVHDS2 ---
Discharge Summary Date of Admission Nov 10, 2024 at 12:29 Date of Discharge: Nov 24, 2024 Labs/Diagnostic Data: Laboratory Results Test 11/24/24 09:33 11/19/24 06:19 11/11/24 03:20 11/09/24 16:00 White Blood Count 7.8 10^3/uL (4.4-10.8) Red Blood Count 3.28 10^6/uL (4.0-5.20) Hemoglobin 9.4 g/dL (12.2-16.2) Hematocrit 27.9 % (36.0-46.0) Mean Corpuscular Volume 85.2 fL (80.0-100.0) Mean Corpuscular Hemoglobin 28.6 pg (28.0-32.0) Mean Corpuscular Hemoglobin Concent 33.6 g/dL (32.0-36.0) Red Cell Distribution Width 16.3 % (11.8-14.3) Platelet Count 604 10^3/uL (140-450) Mean Platelet Volume 6.2 fL (6.9-10.8) Neutrophils (%) (Auto) 74.4 % (37.0-80.0) Lymphocytes (%) (Auto) 15.9 % (10.0-50.0) Monocytes (%) (Auto) 6.8 % (0.0-12.0) Eosinophils (%) (Auto) 1.9 % (0.0-7.0) Basophils (%) (Auto) 1.0 % (0.0-2.0) Neutrophils # (Auto) 5.8 10 ^3/uL (1.6-8.6) Lymphocytes # (Auto) 1.2 10 ^3/uL (0.4-5.4) Monocytes # (Auto) 0.5 10 ^3/uL (0-1.3) Eosinophils # (Auto) 0.1 10 ^3/uL (0-0.8) Basophils # (Auto) 0.1 10 ^3/uL (0-0.2) Nucleated Red Blood Cells 0.1 % Sodium Level 140 mmol/L (136-145) Potassium Level 4.3 mmol/L (3.5-5.1) Chloride Level 105 mmol/L (98-107) Carbon Dioxide Level 26 mmol/L (20-31) Anion Gap 9 (5-15) Blood Urea Nitrogen 7 mg/dL (9-23) Creatinine 0.56 mg/dL (0.550-1.02) Glomerular Filtration Rate Calc 97 mL/min (>90) BUN/Creatinine Ratio 12.5 (10.0-20.0) Serum Glucose 90 mg/dL (74-106) Calcium Level 9.0 mg/dL (8.7-10.4) Total Bilirubin 0.6 mg/dL (0.2-1.0) Aspartate Amino Transferase (AST) 32 U/L (13-40) Alanine Aminotransferase (ALT) 14 U/L (7-40) Alkaline Phosphatase 82 U/L (46-116) Total Protein 5.4 g/dL (5.7-8.2) Albumin 3.2 g/dL (3.2-4.8) Platelet Estimate Markedly increased B-Type Natriuretic Peptide 58.43 pg/mL (0-100) Prothrombin Time 10.5 sec (9.3-11.8) Prothrombin Time INR 0.99 (0.9-1.15) Test 11/07/24 15:36 11/05/24 03:47 11/05/24 02:45 Urine Color Light-orange (Yellow) Urine Clarity Ex.turbid (Clear) Urine pH 8.5 (5.0-9.0) Urine Specific [place] 1.030 (1.001-1.035) Urine Protein 3+ (Negative) Urine Ketones 2+ (Negative) Urine Blood Negative /uL (Negative) Urine Nitrite 2+ (Negative) Urine Bilirubin Negative (Negative) Urine Urobilinogen 3 mg/dL (Negative) Urine Leukocyte Esterase 3+ /uL (Negative) Urine RBC 4 /hpf (0 - 4) Urine Microscopic WBC 15 /HPF (0-5) Urine Squamous Epithelial Cells Few /hpf (<5) Urine Triple Phosphate Crystals Mod /hpf (None Seen) Urine Bacteria Few /hpf (None Seen) Urine Mucus Few (None Seen) Urine Glucose Normal mg/dL (Normal) Activated Partial Thromboplast Time 22.5 SEC (24.5-34.5) Urine Hyaline Casts Few /lpf (0 - 2) Other Laboratory Tests 11/24/24 09:33 Brief Hx & Hospital Course: History of Present Illness 74-year-old female presents for evaluation of right knee pain. Patient reports having a mechanical fall yesterday when she tripped over a walker and fell onto her right knee. States not being able to bear weight on her right leg. Denies head trauma or loss of consciousness. Summary: 11/19 taking over the case for today for doctor jacob. Patient has been admitted since 11/05/24. Patient had right distal femur arthroplasty on 11/10. After surgery ortho is recommending wound VAC, left lower extremity with PT and also we have that on right lower extremity PT out of bed. Physical therapy is done and recommending SNF rehab for PT. Patient has very slow progress improving. She needs more PT rehab in acute rehab facility. Patient agrees with the plan. Diet has been advanced, urinary Ng is inserted patient is still wants to keep it until she is more mobile. 11/20 patient this a.m. working with PT. Patient's son is at bedside. Both are aware need for acute PT rehab and patient agrees to have placement. Patient's son has plenty of questions were all of which were answered and addressed. We will continue PT rehab blood pressure is controlled. No further indication for IV antibiotics. We will stop IV antibiotics today. Patient has new onset thrombocytosis since yesterday. Unknown reason. We will get peripheral smear and do further workup if needed. Likely reactive 2/2 trauma/surgery 11/21- patient continues to work with PT. Platelets appear to have topped out yesterday at 811k. Peripheral smear was ordered, pending eval. Platelets were normal when patient came in at 200s. This is likely reactive but be eval touch base with Hematology out of precaution. We will continue prophylactic DVT, we will switch to Eliquis for outpatient rehab, 2 weeks. Per social note bed and SNF is set up. Once cleared by Hematology, likely bite tonight/over weekend. Patient is otherwise stable for discharge for PT rehab in SNF. Patient's son wanted more information related to surgery. Ortho is informed and we will give son Toney call on Sunday. Patient was adequately treated for UTI for ten days with cefepime. Urine culture has pansensitive Klebsiella, we will give ceftriaxone the patient leaves to sniff rehab. No further antibiotics needed. Patient's ambulation is still very limited although she is working with PT and there is progression. We will leave the Ng inserted until she is able to transfer herself without assistance to bedside commode. Once this occurs patient can have Ng removed likely during rehab at SNF. No further antibiotics after discharge to SNF. 11/22 - 11/23- over the weekend there is no significant developments or veins. Patient continues to work with PT 11/24- patient is still having pain with ambulation with PT sessions. We will keep Ng inserted and plan for removal in duration of rehab approximately 1 week. Defer removing off Ng to rehab provider. Discharge diagnosis: Displaced and comminuted right distal femur fracture s/p right distal femoral replacement LEVI due to VMN, resolved Acute blood loss anemia Hemorrhagic shock Hypertension Thrombocytosis, likely reactive Discharge plan : - Transfer patient to SNF for acute PT rehab. Patient is weight-bearing as tolerated Both legs. - Eliquis 2.5 mg twice daily for 2 weeks for DVT prophylaxis as patient is decreased mobility in high-risk of venous thrombosis. - Continue Ng. Rehab provider to determine removal time. Recommend approximately 1 week or earlier as patient is able to ambulate without assist to bedside commode. If not improved by 1 week patient will need diaper changes regularly. - No further antibiotics needed - Continue other home medications ( Lipitor 40, Synthroid 125 mcg q.a.m., lisinopril 20 mg daily) Condition at Discharge: Fair Final Diagnosis/Problems List Discharge diagnosis: Displaced and comminuted right distal femur fracture s/p right distal femoral replacement LEVI due to VMN, resolved Acute blood loss anemia Hemorrhagic shock Hypertension Thrombocytosis, likely reactive Discharge Disposition: Intermediate Facility Discharge Instruct/Medications Diet: Regular Activity: See Comment Follow Up/Referral: See below Medications: See below Discharge Statement: "Patient was advised to return to the ER or call 911 if any headaches, dizziness, shortness of breath, chest pain, abdominal pain, bleeding, fevers, or worsening of medical condition. Patient was counseled about treatment plan, medications, possible side effects, patientverbalized understanding. All questions were answered to the best of my ability. This discharge took greater then 30 minutes in planning, reviewing documentation, counseling the patient, and discussing with other team members." Date of Service: Nov 24, 2024 Billing Provider: SKYLAR CRUZ MD Common Visit Codes: [id number] DISCH DAY >30min SKYLAR CRUZ MD Nov 24, 2024 14:14
[2024-11-24] MEDS: APIXABAN 2.5 MG TAB PO SCH (22:17)
[2024-12-11] MEDS ORDERED: ALEN70TA74 PO
== END 2024-11-24 23:02 | DRG 469 ==
LOC: ER 21:22 → EDBD 21:22 → TELE-WESTW 11-05 02:00 → WEST WING 11-05 04:57 → UNDOADMIN 11-05 04:57 → ER 11-05 05:03 → UNDOADMIN 11-10 12:29 → TELE-WESTW 11-10 12:29 → ICU WEST 11-10 16:50 → TELE-CENTR 11-13 17:28 → UNDODISIN 11-24 23:02
PROVIDERS: ADMIT Student in an Organized Health Care Education/Training Program; ATTEND Student in an Organized Health Care Education/Training Program
PROC: 8E0YXBZ Computer Assisted Procedure of Lower Extremity (ICD-10-PCS; 2024-11-10)
PROC: 0SRC0J9 Replacement of Right Knee Joint with Synthetic Substitute, Cemented, Open Approach (ICD-10-PCS; 2024-11-10)
PROC: 30233N1 Transfusion of Nonautologous Red Blood Cells into Peripheral Vein, Percutaneous Approach (ICD-10-PCS; principal; 2024-11-10 07:32)
PROC: 05HM33Z Insertion of Infusion Device into Right Internal Jugular Vein, Percutaneous Approach (ICD-10-PCS; 2024-11-20)
PROC: B543ZZA Ultrasonography of Right Jugular Veins, Guidance (ICD-10-PCS; 2024-11-20)
DX: S72.491A Other fracture of lower end of right femur, initial encounter for closed fracture (principal); N17.0 Acute kidney failure with tubular necrosis; R57.8 Other shock; D62 Acute posthemorrhagic anemia; N39.0 Urinary tract infection, site not specified; Z68.42 Body mass index [BMI] 45.0-49.9, adult; I10 Essential (primary) hypertension; D75.839 Thrombocytosis, unspecified; E66.01 Morbid (severe) obesity due to excess calories; M81.0 Age-related osteoporosis without current pathological fracture; G89.4 Chronic pain syndrome; G47.30 Sleep apnea, unspecified; Z88.8 Allergy status to other drugs, medicaments and biological substances; Z79.899 Other long term (current) drug therapy; Z79.83 Long term (current) use of bisphosphonates; W01.0XXA Fall on same level from slipping, tripping and stumbling without subsequent striking against object, initial encounter; Y93.89 Activity, other specified; Y92.89 Other specified places as the place of occurrence of the external cause; Y99.8 Other external cause status
CPT/HCPCS: 36415; 36430; 36556; 71045; 73560; 73700; 76937; 80048; 80053; 81001; 83880; 85025; 85610; 85730; 86850; 86900; 86901; 86920; 87081; 87086; 87088; 87186; 93005; 94660; 96374; 96375; 97110; 97116; 97163; 97530; C1713; C1776; G0378; J0131; J0330; J1885; J2250; J2405; J2470; J2704; J3490

== ENCOUNTER 2024-12-10 14:17 | Inpatient (IN) | payer MEDICARE ==
[~2024-12-10] VITALS: Ht 152.4 cm; Wt 104.1 kg
[~2024-12-10 14:17] MED LIST changes: -ATOR-507 PO; -ERGO1CAP23 PO; -FLUT44AE IN; -MELO7.5T7 PO; -METH-1182 PO; -PAR20T PO; -PREG50CA PO
--- NOTE | 2024-12-10 15:02 | ED.PDOC ---
Musculoskeletal HPI Comments This is a 74 year old female TAHIRAA presenting to the ED with chief complaint of right leg pain s/p fall. EMS reports that the patient had a recent fall, fracturing her right Tibia and requiring surgery. EMS relays that the patient's surgical site had gotten infected and her PCP advised her to come to the ED for admission and possible surgery to the same site. Patient notes that Dr. Le and Dr. Sosa managed her surgery. Patient states that she had a previous blood clot to the right leg 2 weeks ago and was placed on anti-coagulants, however, she still feels pain to the area where the clot was found. Patient denies any numbness, recent fall, fever, chills, chest pain, SOB, or headache. Chief Complaint: Lower Extremity Time Seen by MD: 14:58 Reviewed Notes: Nurses Notes, Weapons System Instrument Mechanic Notes, Medications, Allergies Allergies: Coded Allergies: Baclofen (Verified Allergy, Unknown, 04/09/21) Metformin (Verified Allergy, Unknown, 04/09/21) Home Meds Reported Medications Naproxen Sodium (ALEVE ARTHRITIS) 220 Mg Tab, 220 MG PO DAILYP PRN for PAIN SCALE 4-6 OR TEMP>100.4, TAB 04/10/21 Hydrocortisone Base (Hydrocortisone) 5 Mg Tab, 5 MG PO BID, TAB 04/10/21 Albuterol Sulfate (Albuterol Sulfate Hfa) 108 Mcg/Act Aer, 108 MCG IN PRN PRN for SHORTNESS OF BREATH, AER 04/10/21 Hydrocodone-Acetaminophen (Hydrocodone/Acetaminophen 10-325 mg) 1 Tab Tab, 1 TAB PO BID PRN for PAIN SCALE 7 THRU 10, TAB 04/10/21 Levothyroxine Sodium (Levothyroxine Sodium) 125 Mcg Tab, 125 MCG PO QAM for 30 Days, MCG 04/10/21 Hydrochlorothiazide (Hydrochlorothiazide) 25 Mg Tab, 1 TAB PO DAILY, #30 TAB 5 Refills 04/10/21 Lisinopril (Lisinopril) 20 Mg Tab, 20 MG PO DAILY for 30 Days, MG 04/10/21 Information Source: Patient, Emergency Med Personnel Mode of Arrival: EMS Location: Right Extremity Location: Tibia Timing: Days Prehospital treatment: None Severity: Moderate Able to Move Extremity: No Bear Weight: No Pain: Moderate Mechanism: Spontaneous Circumstances: Preceding Wound Onset of Symptoms: Spontaneous Symptoms: Pain, Erythema DVT Risk Factors: Recent surgery Last Tetanus: Unknown Associated signs and symptoms: Leg pain Past Medical History PAST MEDICAL HISTORY: HTN, Thyroid Surgical History (Other): Rt Tibia surgery MINERAL INDUSTRY TEACHER History: No Pertinent MINERAL INDUSTRY TEACHER History Family History Family History: Reviewed,noncontributory to illness, No family hx of Cancer, No family hx of DM, No family hx of Heart geovany, No family hx of HTN, No family hx ofKidney geovany, No family hx of Liver geovany, No family hx of Lung geovany, No family hx of Stroke Social History Smoker: Non-Smoker Alcohol: Denies ETOH Use Drugs: Denies Drug Use Lives In: Home Constitutional: denies: chills, diaphoresis, fatigue, fever, malaise, sweats, weakness, others EENTM: denies: blurred vision, double vision, ear bleeding, ear discharge, ear drainage, ear pain, ear ringing, eye pain, eye redness, hearing loss, mouth pain, mouth swelling, nasal discharge, nose bleeding, nose congestion, nose pain, photophobia, tearing, throat pain, throat swelling, voice changes, others Respiratory: denies: cough, hemoptysis, orthopnea, SOB at rest, shortness of breath, SOB with excertion, stridor, wheezing, others Cardiovascular: denies: chest pain, dizzy spells, diaphoresis, Dyspnea on exertion, edema, irregular heart beat, left arm pain, lightheadedness, palpitations, PND, syncope, others Gastrointestinal: denies: abdomen distended, abdominal pain, blood streaked bowels, constipated, diarrhea, dysphagia, difficulty swallowing, hematemesis, melena, nausea, poor appetite, poor fluid intake, rectal bleeding, rectal pain, vomiting, others Genitourinary: denies: abnormal vagina bleeding, burning, dyspareunia, dysuria, flank pain, frequency, hematuria, incontinence, pain, , vagina discharge, urgency, others Neurological: denies: dizziness, fainting, headache, left sided numbness, left sided weakness, numbness, paresthesia, pre-existing deficit, right sided numbness, right sided weakness, seizure, speech problems, tingling, tremors, weakness, others Musculoskeletal: reports: others (Right leg pain); denies: back pain, gout, joint pain, joint swelling, muscle pain, muscle stiffness, neck pain Integumetry: reports: wounds (Surgical site to right leg); denies: bruises, change in color, change in hair/nails, dryness, laceration, lesions, lumps, rash, others Allergic/Immunocompromised: denies: Difficulty Healing, Frequent Infections, Hives, Itching, others Hematologic/Lymphatic: denies: anemia, blood clots, easy bleeding, easy bruising, swollen glands, others Endocrine: denies: excessive hunger, excessive sweating, excessive thirst, excessive urination, flushing, intolerance to cold, intolerance to heat, unexplained weight gain, unexplained weight loss, others Psychiatric: denies: anxiety, bipolar disorder, depression, hopeless, panic disorder, schizophrenia, sleepless, suicidal, others All Other Systems: Reviewed and Negative Physical Exam General Appearance: No Apparent Distress, Normal HEENT: Normal ENT Inspection, Pharynx Normal, TMs Normal Neck: Full Range of Motion, Non-Tender, Normal, Normal Inspection Respiratory: Chest Non-Tender, Lungs Clear, No Accessory Muscle Use, No Respiratory Distress, Normal Breath Sounds Cardiovascular: No Edema, No JVD, No Murmur, No Gallop, Normal Peripheral Pulses, Regular Rate/Rhythm Breast Exam: Deferred Gastrointestinal: No Organomegaly, Non Tender, No Pulsatile Mass, Normal Bowel Sounds, Soft Genitalia: Deferred Pelvic: Deferred Rectal: Deferred Extremities: Other (Postsurgical right distal femur and right tib-fib with eryt sergio.) Musculoskeletal : Apperance: Tenderness Neurologic: Alert, health service coordinator II-XII nml as Tested, No Motor Deficits, Normal Affect, Normal Mood, No Sensory Deficits Cerebellar Function: Normal Reflexes: Normal Skin: Dry, Normal Color, Warm Lymphatic: No Adenopathy Was a procedure done? Was a procedure done?: No Differential Diagnosis EXT Differential Diagnosis: Fracture, Sprain, Contusion, Strain X-Ray, Labs, Meds, VS Vital Signs Date Time Temp Pulse Resp B/P (MAP) Pulse Ox O2 Delivery O2 Flow Rate FiO2 12/10/24 15:30 Nasal Cannula* 2 28 12/10/24 14:25 98.6 86 16 134/86 (102) 94 98.6 Lab Test 12/10/24 15:28 Range/Units White Blood Count 6.7 4.4-10.8 10^3/uL Red Blood Count 4.49 4.0-5.20 10^6/uL Hemoglobin 12.4 12.2-16.2 g/dL Hematocrit 38.5 36.0-46.0 % Mean Corpuscular Volume 85.6 80.0-100.0 fL Mean Corpuscular Hemoglobin 27.7 L 28.0-32.0 pg Mean Corpuscular Hemoglobin Concent 32.4 32.0-36.0 g/dL Red Cell Distribution Width 17.3 H 11.8-14.3 % Platelet Count 572 H 140-450 10^3/uL Mean Platelet Volume 7.1 6.9-10.8 fL Neutrophils (%) (Auto) 67.8 37.0-80.0 % Lymphocytes (%) (Auto) 18.9 10.0-50.0 % Monocytes (%) (Auto) 9.4 0.0-12.0 % Eosinophils (%) (Auto) 1.8 0.0-7.0 % Basophils (%) (Auto) 2.1 H 0.0-2.0 % Neutrophils # (Auto) 4.6 1.6-8.6 10 ^3/uL Lymphocytes # (Auto) 1.3 0.4-5.4 10 ^3/uL Monocytes # (Auto) 0.6 0-1.3 10 ^3/uL Eosinophils # (Auto) 0.1 0-0.8 10 ^3/uL Basophils # (Auto) 0.1 0-0.2 10 ^3/uL Nucleated Red Blood Cells 0.1 % Sodium Level 137 136-145 mmol/L Potassium Level 4.1 3.5-5.1 mmol/L Chloride Level 100 98-107 mmol/L Carbon Dioxide Level 27 20-31 mmol/L Anion Gap 10 5-15 Blood Urea Nitrogen 12 9-23 mg/dL Creatinine 0.76 0.550-1.02 mg/dL Glomerular Filtration Rate Calc 83 >90 mL/min BUN/Creatinine Ratio 15.8 10.0-20.0 Serum Glucose 96 74-106 mg/dL Lactic Acid Level 1.1 0.4-2.0 mmol/L Calcium Level 10.0 8.7-10.4 mg/dL Time of 1ST Reevaluation: 15:57 Reevaluation 1ST: Unchanged Patient Education/Counseling: Diagnosis, Treatment Family Education/Counseling: No Family Present Sepsis Sepsis Reasesment Focused Exam Orders: Laboratory Tests 12/10/24 15:28: Lactic Acid Level 1.1 Departure 1 Departure Time of Disposition: 17:00 (Discussed the case with orthopedics who recommended admission to the hospital and Orthopedics we will plan on taking patient in for wound exploration) Impression: Primary Impression: Closed fracture of distal end of right fibula and tibia with delayed healing Additional Impression: Generalized weakness Disposition: ADMITTED INPATIENT Admit to: Med Surg Condition: Guarded Critical Care Note Critical Care Time?: Yes Critical care comment: Concern for wound infection Authorized and Performed by: Rosa Lebron MD Total critical care time: Approximately 39 minutes Due to a high probability of clinically significant, life threatening deterioration, the patient required my highest level of preparedness to inter vene emergently and I personally spent this critical care time directly and personally managing the patient. This critical care time included obtaining a history; examining the patient; pulse oximetry; ordering and review of studies; arranging urgent treatment with development of a management plan; evaluation of patient's response to treatment; frequent reassessment; and, discussions with other providers. This critical care time was performed to assess and manage the high probability of imminent, life-threatening deterioration that could result in multi-organ failure. It was exclusive of separately billable procedures and treating other patients and teaching time. Please see my other sections and the rest of the note for further information on patient assessment and treatment. Stability Stability form required: No Heart Score Heart Score: Heart Score Response (Comments) Value History N/A 0 EKG N/A 0 Age N/A 0 Risk Factors N/A 0 Troponin N/A 0 Total 0 I personally scribed for ROSA LEBRON MD ([email or web address]) on 12/10/24 at 15:02. Mary ctronically submitted by Jovany Faith ([email or web address]). ROSA LEBRON MD Dec 10, 2024 15:02
--- NOTE | 2024-12-10 15:09 | DVH ---
CHEST RADIOGRAPH Indication: fever Technique: Single frontal view of the chest was obtained Comparison: XY CHEST PORTABLE on DOS: 11/10/24, XY CHEST PORTABLE on DOS: 11/06/24, CHEST PORTABLE on D OS: 04/09/21 FINDINGS: Lines and Tubes: None Lungs: No focal consolidation. Pleura: No effusion. No pneumothorax. Cardiomediastinal contours: Unremarkable Bones: No acute osseous abnormality. IMPRESSION: 1. No acute cardiopulmonary disease.
--- NOTE | 2024-12-10 15:12 | DVH ---
CLINICAL INDICATION: RIGHT LEG PAIN AFTER SURGERY TECHNIQUE: 3 radiographic views of the right tib fib were obtained. Comparison: None FINDINGS/IMPRESSION Right total knee arthroplasty. Accumulation of methylmethacrylate in the subcutaneous tissues anterior to the tibial tubercle. Questionable fracture posterior distal tibia correlate clinically.
[2024-12-10 16:13] LABS: Hematocrit 38.5 % (36.0-46.0); Hemoglobin 12.4 g/dL (12.2-16.2); Mean Corpuscular Hemoglobin 27.7 pg (28.0-32.0); Mean Corpuscular Volume 85.6 fL (80.0-100.0); Nucleated Red Blood Cells % 0.1 %
[2024-12-10 16:24] LABS: Chloride 100 mmol/L (98-107); Potassium 4.1 mmol/L (3.5-5.1); Sodium 137 mmol/L (136-145)
[2024-12-10 16:25] LABS: Anion Gap 10 (5-15); Calcium 10.0 mg/dL (8.7-10.4); Carbon Dioxide 27 mmol/L (20-31)
[2024-12-10 16:30] LABS: BUN/Creatinine Ratio 15.8 (10.0-20.0); Blood Urea Nitrogen 12 mg/dL (9-23); Glucose 96 mg/dL (74-106)
[2024-12-10] MEDS: HYDROcodone-ACET 5/325MG TAB PO ONE (19:49)
[2024-12-10 20:03] LABS: INR 1.31 (0.9-1.15); Partial Thromboplastin Time 35.6 SEC (24.5-34.5); Prothrombin Time 13.5 sec (9.3-11.8)
--- NOTE | 2024-12-10 21:22 | DVHHP2 ---
History of Present Illness Reason for Visit: Wound evaluation History of Present Illness 74-year-old female presents for evaluation of right leg surgical wound. Patient reports having a right leg surgery last month. Currently she is at rehab. She was seen two days ago by her orthopedic surgeon who noted to have dehiscence to her right leg surgical wound and advised the patient to present for admission for possible need for surgery. Patient denies fever or chills. Past Medical History Thyroid, hypertension Past Surgical History Right tibial surgery Family History Noncontributory Smoke: No ALCOHOL: none Drugs: None Lives: with Family Review of Systems Review of Systems Review of systems are currently negative otherwise addressed in HPI. Allergies: Coded Allergies: Baclofen (Verified Allergy, Unknown, 04/09/21) Metformin (Verified Allergy, Unknown, 04/09/21) Medications Current Medications Medications Dose Ordered Sig/Tex Route Start Time Stop Time Status Last Admin Dose Admin Ondansetron HCl 4 mg Q4HP PRN IV 12/10/24 19:30 Morphine Sulfate 2 mg Q4HPRN PRN IV 12/10/24 19:30 Exam Vital Signs Vital Signs Date Time Temp Pulse Resp B/P (MAP) Pulse Ox O2 Delivery O2 Flow Rate FiO2 12/10/24 18:00 98.8 95 16 136/81 (99) 95 98.8 12/10/24 15:30 Nasal Cannula* 2 28 Exam Gen: 74-year-old female in no apparent distress Skin: Warm, dry, normal color and texture, no rash. HEENT: Normocephalic atraumatic, mucous membranes moist and pink. Neck: Cervical and supraclavicular nodes normal without enlargement, trachea is midline, thyroid gland is normal without masses. Pulmonary: Clear to auscultation and percussion bilaterally. Cardiac: Regular rate and rhythm. No murmur Abdomen: Soft, nontender, nondistended, bowel sounds present all 4 quadrants, no guarding, no rigidity, no organomegaly. Extremities: No cyanosis, clubbing, right surgical wound with dehiscence Neuro: Cranial nerves II through XII grossly intact, normal affect and speech, no focal motor deficits. Labs/Xrays ORDERING PHYSICIAN: ROSA LEBRON MD PROCEDURE(s): RTBFB - R TIB FIB XRAY REASON: RIGHT LEG PAIN AFTER SURGERY ORDER NUMBER(s): [id number], ACCESSION NUMBER(s): [id number] CLINICAL INDICATION: RIGHT LEG PAIN AFTER SURGERY TECHNIQUE: 3 radiographic views of the right tib fib were obtained. Comparison: None FINDINGS/IMPRESSION Right total knee arthroplasty. Accumulation of methylmethacrylate in the subcutaneous tissues anterior to the tibial tubercle. Questionable fracture posterior distal tibia correlate clinically. 15 Labs Test 12/10/24 15:28 Range/Units White Blood Count 6.7 4.4-10.8 10^3/uL Red Blood Count 4.49 4.0-5.20 10^6/uL Hemoglobin 12.4 12.2-16.2 g/dL Hematocrit 38.5 36.0-46.0 % Mean Corpuscular Volume 85.6 80.0-100.0 fL Mean Corpuscular Hemoglobin 27.7 L 28.0-32.0 pg Mean Corpuscular Hemoglobin Concent 32.4 32.0-36.0 g/dL Red Cell Distribution Width 17.3 H 11.8-14.3 % Platelet Count 572 H 140-450 10^3/uL Mean Platelet Volume 7.1 6.9-10.8 fL Neutrophils (%) (Auto) 67.8 37.0-80.0 % Lymphocytes (%) (Auto) 18.9 10.0-50.0 % Monocytes (%) (Auto) 9.4 0.0-12.0 % Eosinophils (%) (Auto) 1.8 0.0-7.0 % Basophils (%) (Auto) 2.1 H 0.0-2.0 % Neutrophils # (Auto) 4.6 1.6-8.6 10 ^3/uL Lymphocytes # (Auto) 1.3 0.4-5.4 10 ^3/uL Monocytes # (Auto) 0.6 0-1.3 10 ^3/uL Eosinophils # (Auto) 0.1 0-0.8 10 ^3/uL Basophils # (Auto) 0.1 0-0.2 10 ^3/uL Nucleated Red Blood Cells 0.1 % Prothrombin Time 13.5 H 9.3-11.8 sec Prothrombin Time INR 1.31 H 0.9-1.15 Activated Partial Thromboplast Time 35.6 H 24.5-34.5 SEC Sodium Level 137 136-145 mmol/L Potassium Level 4.1 3.5-5.1 mmol/L Chloride Level 100 98-107 mmol/L Carbon Dioxide Level 27 20-31 mmol/L Anion Gap 10 5-15 Blood Urea Nitrogen 12 9-23 mg/dL Creatinine 0.76 0.550-1.02 mg/dL Glomerular Filtration Rate Calc 83 >90 mL/min BUN/Creatinine Ratio 15.8 10.0-20.0 Serum Glucose 96 74-106 mg/dL Lactic Acid Level 1.1 0.4-2.0 mmol/L Calcium Level 10.0 8.7-10.4 mg/dL SEPSIS Sepsis Screen Date sepsis recognized/suspect: Dec 10, 2024 Time Sepsis recognized/suspect: 1424 Recent Procedure: Yes On Antibiotic Therapy: Yes Respiratory Rate >20: No Heart Rate >90: No Temp<36 C (96.8 F) or >38.3 C: No SBP <90 or MAP <65 mmHG: No New Acute Mental Status Change: No Is the patient on CPAP, BIPAP,: No Physician Orders R Tib Fib Xray (12/10/24 14:40) Blood Culture (12/10/24 14:40) Chest Portable (12/10/24 14:40) *Consult Dr. Manjit Le (12/10/24 19:18) Type And Screen (12/10/24 19:18) Sodium Chloride 0.9% (12/10/24 19:30) Basic Metabolic Panel (12/11/24 04:00) Admit (12/10/24 19:18) Ondansetron Hcl (Zofran) (12/10/24 19:30) Npo (Nothing By Mouth) Diet (12/11/24 Breakfast) Condition: Stable (12/10/24 19:18) Bedrest With Bathroom Privileg (12/10/24 19:18) Morphine Sulfate Injection (12/10/24 19:30) Vital Signs Date Time Temp Pulse Resp B/P (MAP) Pulse Ox O2 Delivery O2 Flow Rate FiO2 12/10/24 18:00 98.8 95 16 136/81 (99) 95 98.8 12/10/24 16:00 86 12/10/24 15:30 Nasal Cannula* 2 28 12/10/24 15:30 98.8 84 16 135/70 (91) 95 98.8 12/10/24 14:25 98.6 86 16 134/86 (102) 94 98.6 Laboratory Tests Test 12/10/24 15:28 Lactic Acid Level 1.1 mmol/L (0.4-2.0) White Blood Count 6.7 10^3/uL (4.4-10.8) Medications Medications Dose Ordered Sig/Tex Route Start Time Stop Time Status Last Admin Dose Admin Acetaminophen/ Hydrocodone Bitart 1 tab ONCE ONCE PO 12/10/24 19:15 12/10/24 19:16 DC 12/10/24 19:49 1 TAB Assessment/Plan Assessment/Plan Assessment ? Distal tibial fracture Surgical wound dehiscence Morbid obesity Plan Admit the patient to [facility] to the hospitalist Orthopedic consult NPO Pain management Continue treatment per orders. Plan discussed with: Patient My Orders Orders - ALVA SHEFFIELD Procedure Category Date Status Time *Consult Dr. Saravia CONS 12/10/24 Transmitted Rey 19:18 Type And Screen BBK 12/10/24 In Process 19:18 Sodium Chloride 0.9% PHA 12/10/24 In Process 19:30 Basic Metabolic Panel LAB 12/11/24 Verified 04:00 Admit ADMIT 12/10/24 Transmitted 19:18 Ondansetron Hcl PHA 12/10/24 In Process (Zofran) 19:30 Npo (Nothing By DIET 12/11/24 Transmitted Mouth) Diet Breakfast Condition: Stable MATILDA 12/10/24 In Process 19:18 Bedrest With Bathroom MATILDA 12/10/24 In Process Privileg 19:18 Morphine Sulfate PHA 12/10/24 In Process Injection 19:30 Date of Service: Dec 10, 2024 Billing Provider: ALVA SHEFFIELD Common Visit Codes: [id number] INP/OBS CARE (HIGH) ALVA SHEFFIELD Dec 10, 2024 21:22
[2024-12-10 22:20] VITALS: BP 106/59; PULSE 83; RESP 18; TEMP 98; O2SAT 94
[2024-12-10 23:36] VITALS: BP 106/59; PULSE 83; RESP 18; TEMP 98; O2SAT 94
[2024-12-11] VITALS (8 sets, daily range): BP systolic 114–129; BP diastolic 53–67; PULSE 71–88; RESP 14–18; TEMP 97.8–98.8; O2SAT 93–100
[2024-12-11] MEDS ORDERED: ALEN70TA74 PO
[2024-12-11] MEDS ORDERED: ACE650RS PR
[2024-12-11] MEDS: SODIUM CHLORIDE 0.9% 1,000 ML IV ONE (02:58)
[2024-12-11] MEDS: MORPHINE SULFATE INJ 2 MG/ml SYRG IV PRN (03:55)
[2024-12-11 07:17] LABS: Chloride 103 mmol/L (98-107); Potassium 4.3 mmol/L (3.5-5.1); Sodium 137 mmol/L (136-145)
[2024-12-11 07:18] LABS: Anion Gap 9 (5-15); Calcium 9.2 mg/dL (8.7-10.4); Carbon Dioxide 25 mmol/L (20-31)
[2024-12-11 07:23] LABS: BUN/Creatinine Ratio 16.0 (10.0-20.0); Blood Urea Nitrogen 12 mg/dL (9-23); Glucose 80 mg/dL (74-106)
--- NOTE | 2024-12-11 07:36 | DVHINCON2 ---
Date of service: Dec 11, 2024 Reason for Consultation right leg wound complications History of Present Illness Ms. Steve presents to [facility] ER for evaluation of a non-healing anterior right knee wound, 4 weeks after right distal femoral replacement (DFR). She had previously been evaluated in orthopedic clinic where a [id number] ulceration over the patella was noted. A STAT plastic surgery referral was requested from her SNF for flap consideration. However, she was unable to obtain the referral or be seen by plastics. She returns today due to persistent ulceration and wound dehiscence. She also has a recent diagnosis of right lower extremity DVT post-DFR and is currently on therapeutic anticoagulation. Denies fever, chills, shortness of breath, or chest pain. Past Surgical History right distal femoral replacement Family History: Patient reports no known family medical history. Allergies: Coded Allergies: Baclofen (Verified Allergy, Unknown, 04/09/21) Metformin (Verified Allergy, Unknown, 04/09/21) Home Meds Reported Medications Acetaminophen (Tylenol) 650 Mg Rc, 650 MG PA BID, SUPP.RECT 12/11/24 Alendronate Sodium (Alendronate Sodium) 70 Mg Tab, 70 MG PO Q7D, TAB 12/11/24 Naproxen Sodium (ALEVE ARTHRITIS) 220 Mg Tab, 220 MG PO DAILYP PRN for PAIN SCALE 4-6 OR TEMP>100.4, TAB 04/10/21 Hydrocortisone Base (Hydrocortisone) 5 Mg Tab, 5 MG PO BID, TAB 3 pills in the morning and 3 pills at night 04/10/21 Albuterol Sulfate (Albuterol Sulfate Hfa) 108 Mcg/Act Aer, 108 MCG IN PRN PRN for SHORTNESS OF BREATH, AER 04/10/21 Hydrocodone-Acetaminophen (Hydrocodone/Acetaminophen 10-325 mg) 1 Tab Tab, 1 TAB PO BID PRN for PAIN SCALE 7 THRU 10, TAB 04/10/21 Levothyroxine Sodium (Levothyroxine Sodium) 125 Mcg Tab, 125 MCG PO QAM for 30 Days, MCG 04/10/21 Hydrochlorothiazide (Hydrochlorothiazide) 25 Mg Tab, 1 TAB PO DAILY, #30 TAB 5 Refills 04/10/21 Lisinopril (Lisinopril) 20 Mg Tab, 20 MG PO DAILY for 30 Days, MG 04/10/21 Current Medications Current Medications Medications (Trade) Dose Ordered Sig/Tex Route PRN Reason Start Time Stop Time Status Last Admin Ondansetron HCl (Zofran) 4 mg Q4HP PRN IV NAUSEA / VOMITING 12/10/24 19:30 Morphine Sulfate 2 mg Q4HPRN PRN IV SEVERE PAIN (7-10 PAIN SCALE) 12/10/24 19:30 12/11/24 03:55 Review of Systems 10 point ROS otherwise negative Vital Signs Vital Signs Date Time Temp Pulse Resp B/P (MAP) Pulse Ox O2 Delivery O2 Flow Rate FiO2 12/11/24 05:00 98.0 87 17 114/66 (82) 94 98.0 12/10/24 23:36 Room Air* 0 21 Physical Exam - General: Obese female (~300+ lbs), alert, in no acute distress -Vitals: Stable -Right Knee Wound: - Ulceration over anterior patellar region, ~1 inch diameter (quarter-dollar size) - Localized wound dehiscence present - Mild surrounding erythema, no fluctuance or purulence - No crepitus or signs of infection - Remaining incision is healing well proximally and distally -Neurovascular: Distally intact - Mobility: Non-weightbearing; needs assist for transfers - Other Systems: - Pulmonary/Cardiac: No acute symptoms - Recent post-op DVT in surgical leg; patient is on anticoagulation Labs/Diagnostic Data Labs Test 12/11/24 06:00 12/10/24 15:28 Range/Units Sodium Level 137 136-145 mmol/L Potassium Level 4.3 3.5-5.1 mmol/L Chloride Level 103 98-107 mmol/L Carbon Dioxide Level 25 20-31 mmol/L Anion Gap 9 5-15 Blood Urea Nitrogen 12 9-23 mg/dL Creatinine 0.75 0.550-1.02 mg/dL Glomerular Filtration Rate Calc 85 >90 mL/min BUN/Creatinine Ratio 16.0 10.0-20.0 Serum Glucose 80 74-106 mg/dL Calcium Level 9.2 8.7-10.4 mg/dL White Blood Count 6.7 4.4-10.8 10^3/uL Red Blood Count 4.49 4.0-5.20 10^6/uL Hemoglobin 12.4 12.2-16.2 g/dL Hematocrit 38.5 36.0-46.0 % Mean Corpuscular Volume 85.6 80.0-100.0 fL Mean Corpuscular Hemoglobin 27.7 L 28.0-32.0 pg Mean Corpuscular Hemoglobin Concent 32.4 32.0-36.0 g/dL Red Cell Distribution Width 17.3 H 11.8-14.3 % Platelet Count 572 H 140-450 10^3/uL Mean Platelet Volume 7.1 6.9-10.8 fL Neutrophils (%) (Auto) 67.8 37.0-80.0 % Lymphocytes (%) (Auto) 18.9 10.0-50.0 % Monocytes (%) (Auto) 9.4 0.0-12.0 % Eosinophils (%) (Auto) 1.8 0.0-7.0 % Basophils (%) (Auto) 2.1 H 0.0-2.0 % Neutrophils # (Auto) 4.6 1.6-8.6 10 ^3/uL Lymphocytes # (Auto) 1.3 0.4-5.4 10 ^3/uL Monocytes # (Auto) 0.6 0-1.3 10 ^3/uL Eosinophils # (Auto) 0.1 0-0.8 10 ^3/uL Basophils # (Auto) 0.1 0-0.2 10 ^3/uL Nucleated Red Blood Cells 0.1 % Prothrombin Time 13.5 H 9.3-11.8 sec Prothrombin Time INR 1.31 H 0.9-1.15 Activated Partial Thromboplast Time 35.6 H 24.5-34.5 SEC Lactic Acid Level 1.1 0.4-2.0 mmol/L Assessment - Status-post right knee DFR with anterior wound ulceration and dehiscence - Failed outpatient plastic surgery coordination for flap - Morbid obesity and malnutrition risk likely contributing to delayed healing - Recent DVT in surgical leg, currently anticoagulated - Requires inpatient admission for wound optimization, irrigation/debridement, grafting, and nutritional suppor Plan/Recommendation 1. Admission: - Admit to the hospitalist/medicine team per recommendation by Dr. Le ([facility] surgeon) - Admission is for medical optimization and perioperative management - Dr. Le to perform surgical wound debridement, Restrata graft placement, and wound VAC for wound optimization 2. Surgery (Scheduled for today): - Wound debridement and irrigation with antibiotic solution - Intraoperative wound cultures - Placement of Restrata graft - Application of wound VAC - Post-op immobilization in straight leg brace in slight flexion 3. Lab Work (STAT on Admission): - CBC with differential - BMP - CRP / ESR - Prealbumin, Albumin - Total protein - Zinc level - Vitamin D level - Hgb A1c - Intraoperative wound culture 4. Nutritional & Supplement Support (Post-Op): - Hospitalist/medicine team to manage nutritional repletion and supplementation based on lab findings: - If albumin <3.5 or prealbumin <20: initiate and manage high-protein diet and supplementation - If zinc <60 mcg/dL: manage with zinc sulfate 220 mg PO daily - If Vitamin D <30 ng/mL: manage with Vitamin D3 2,0005,000 IU PO daily - Dietitian referral for wound healing optimization and nutritional planning 5. Physical Therapy: - Begin PT 1 week post-op - Weight-bearing as tolerated with brace - Allow passive ROM as tolerated within brace limits 6. DVT / Anticoagulation Management: - Internal Medicine to manage perioperative anticoagulation for recent post-op DVT - Confirm current anticoagulation type and dosage - Check INR (if on warfarin) or renal function (if on DOACs) - Bridge anticoagulation as appropriate before/after surgery - Monitor for post-operative bleeding, particularly with graft and wound VAC - Post-operatively, place sequential compression devices (SCDs) to lower extremities while non-ambulatory 7. Follow-Up: - Return to orthopedic clinic in 1 week - Review wound healing progress, labs, and culture results - Consider delayed plastic surgery flap if wound fails to progress after graft/WVAC - Internal Medicine follow-up for long-term DVT and nutritional care coordination 8. Communication & Documentation: - Plan reviewed and approved by Dr. Le - Patient and SNF updated - Consent to be obtained pre-op by OR team Plan discussed with: Patient REGAN MOCTEZUMA DYLAN Dec 11, 2024 07:36
[2024-12-11] MEDS ORDERED: KETAMINE 50mg/ML 1ml syringe ONE (13:46)
[2024-12-11] MEDS ORDERED: fentaNYL CITRATE 100 MCG/2 ML VL ONE (13:46)
[2024-12-11] MEDS ORDERED: MIDAZOLAM HCL 2MG/2ML 2ml VIAL (1mg/ml) ONE (13:46)
[2024-12-11] MEDS ORDERED: PROPOFOL 10 MG/ML 20 ML IV ONE (14:00)
[2024-12-11] MEDS: VANCOMYCIN HCL 1000 MG VL ONE (14:24)
[2024-12-11] MEDS: BUPIVACAINE HCL 0.25% P/F 10 ML VIAL ONE (14:24)
[2024-12-11] MEDS: LIDOCAINE 1% HCL (LOCAL ANESTH.) INJ 20ML MDV ONE (14:24)
--- NOTE | 2024-12-11 14:49 | DVHOP2 ---
Operative Report - 2 Report Details Date: 12/11/24 Preop Diagnosis: Right knee wound necrosis Postop Diagnosis: Right knee wound necrosis Surgeon: Manjit Le MD Anesthesiologist: Krystyna GOOD Anesthesia: General Consent: The patient was informed of the risks and benefits of the procedure. These include but are not limited to complications of anesthesia, postoperative infection, incomplete relief of symptoms, recurrence of symptoms, damage to blood vessels, nerves and tendons, deep venous thrombosis, pulmonary embolism and possible need for repeat surgery in the future. Estimated Blood Loss: 10 cc Findings: 7x4 cm area of necrosis at mid aspect of skin Name of Procedure Performed 1. Irrigation and debridement of right knee 2. Right knee biologic augmentation 3. placement of wound vac Procedure Details Procedure Details: INDICATION: Patient underwent a right distal femur replacement surgery for a comminuted right distal femur fracture. Patient has been in SNF since that time. Patient presented to clinic and noted to have necrosis around mid aspect of incision. Preoperatively in the waiting area as well as in the office, I had a long discussion with the patient and family regarding the plan, the expected outcome, the risks, benefits, and alternatives of surgery. The risks include, but are not limited to, infection (which may require future surgery and removal of implants) , bleeding (which may require a transfusion), damage to nerves, arteries, veins, tendons, muscles and other adjacent structures. Also discussed the possibilities of intraoperative fractures, implant loosening, heterotopic bone formation, and revision for variety of reasons, and medical complications etc. This was discussed at length and consent has been obtained. Patient and family understand the serious nature of this and the risks. DESCRIPTION OF PROCEDURE: In the preoperative holding area, the consent was reviewed and the appropriate extremity was verified by the patient and marked with my initials. The patient was then transferred to the operating theatre. Appropriate anesthesia was induced. All bony prominences were well padded. A shawn e out was performed verifying the side and site of surgery according to standard protocol. Preoperative antibiotics were given. Tranexamic acid was given. The extremity was then prepped and draped in the usual sterile fashion. I did a shard debridement of 7x4 cm area of necrosis at mid incision. This was debrided of skin and fat. I took a culture of wound. Parapatella arthrotomy was intact. A dilute betadine solution (17.5mL in 500mL saline) was used to wash the joint and left to sit for 3 minutes. I then washed out with X-tant. This was then irrigated out with copious amounts of pulse lavage. We sprinkled 1g vancomycin powder. I then placed biologic powder and patch at the wound deficient area. We closed the subcutaneous tissue with nylon and chromic gut. I then placed a prevena wound vac. We verified all lower extremity compartments were soft and compressible and that we had intact distal pulses. We wrapped the extremity in sterile Webril and sho bandage. The patient was transferred to the recovery room in stable condition. Specimen: culture Condition Good Disposition Still a Patient MANJIT LE MD Dec 11, 2024 14:49
[2024-12-11] MEDS ORDERED: HYDROmorphone HCL 2 MG/ML VL/or syr IV PRN (15:15)
[2024-12-11] MEDS ORDERED: MIDAZOLAM HCL 2MG/2ML 2ml VIAL (1mg/ml) IV PRN (15:15)
[2024-12-11] MEDS ORDERED: hydrALAZINE HCL 20 MG/ML VL IV PRN (15:15)
[2024-12-11] MEDS ORDERED: MORPHINE SULFATE 4 MG/ML SYR/VIAL IV PRN (15:15)
[2024-12-11] MEDS: ONDANSETRON HCL 4 MG/2 ML VIAL IV ONE (15:15)
[2024-12-11 15:48] LABS: Albumin 3.2 g/dL (3.2-4.8)
[2024-12-11] MEDS: MUPIROCIN 2% OINT 15gm or 22gm FOR MRSA NARES EACHNOSTRI SCH (21:22)
[2024-12-11] MEDS ORDERED: APIX5TAB PO (22:51)
--- NOTE | 2024-12-11 23:35 | DVHPN2 ---
Subjective seen in bed Reviewed: H&P, Labs Changes from previous H/P or p: No Changes Objective Vitals Vital Signs Date Time Temp Pulse Resp B/P (MAP) Pulse Ox O2 Delivery O2 Flow Rate FiO2 12/11/24 22:36 94 18 128/68 12/11/24 21:00 98.1 93 98.1 12/11/24 20:00 Room Air* 0 21 Intake/Output Intake and Output 12/11/24 07:00 Intake Total 0 ml Balance 0 ml Intake Oral 0 ml # Voids 3 General Appearance: Alert, Oriented X3 Lungs: Clear to auscultation Cardiovascular: Regular rate, Normal S1, Normal S2 Abdomen: Normal bowel sounds Medications Current Medications Medications Dose Ordered Sig/Tex Route Start Time Stop Time Status Last Admin Dose Admin Ondansetron HCl 4 mg Q4HP PRN IV 12/10/24 19:30 Morphine Sulfate 2 mg Q4HPRN PRN IV 12/10/24 19:30 12/11/24 22:36 2 MG Hydrocortisone 1 applic TID PRN TOP 12/11/24 11:30 Multivitamins 1 tab DAILY PO 12/12/24 10:00 Ascorbic Acid 1,000 mg DAILY PO 12/12/24 10:00 Mupirocin 1 applic BID EACHNOSTRI 12/11/24 22:00 12/16/24 21:59 12/11/24 21:22 1 APPLIC Levothyroxine Sodium 125 mcg QAM@0600 PO 12/12/24 06:00 UNV Laboratory Results Laboratory Tests 12/10/24 15:28 12/11/24 06:00 Chemistry Test 12/11/24 06:00 Albumin 3.2 g/dL (3.2-4.8) Calcium Level 9.2 mg/dL (8.7-10.4) HgA1c, TSH Test 12/11/24 06:00 Hemoglobin A1c 5.1 % A1C (<5.7) Microbiology Microbiology Date/Time Source Procedure Growth Status 12/11/24 05:00 Nose MRSA Screen - Final Methicillin Resistant S.aureus Complete 12/10/24 15:28 Blood Blood Culture - Preliminary NO GROWTH AFTER 24 HOURS OF INCUBATION. Resulted Assessment/Plan Assessment/Plan ? Distal tibial fracture Surgical wound dehiscence Morbid obesity Going to OR per ortho IV abx Plan discussed with: Patient My Orders Orders - SHERMAN WU MD Procedure Category Date Status Time Hydrocortone 1% PHA 12/11/24 In Process Topical Cream 11:30 Mupirocin 2% Oint PHA 12/11/24 In Process Mrsa Nares (Bactroban 22:00 Date of Service: Dec 11, 2024 Billing Provider: SHERMAN WU MD Common Visit Codes: [id number] INP/OBS CARE(HIGH) SHERMAN WU MD Dec 11, 2024 23:35
[2024-12-11] MEDS: APIXABAN 5 MG TAB PO ONE (23:51)
[2024-12-12] VITALS (8 sets, daily range): BP systolic 109–137; BP diastolic 57–83; PULSE 90–104; RESP 16–18; TEMP 97.9–99.2; O2SAT 92–96
[2024-12-12] MEDS: ONDANSETRON HCL 4 MG/2 ML VIAL IV PRN (04:34)
[2024-12-12] MEDS: LEVOTHYROXINE SODIUM 50 MCG TAB PO SCH (05:19)
--- NOTE | 2024-12-12 07:45 | DVHPN2 ---
Progress Note Date Seen: Dec 12, 2024 Medical Necessity Reason Pt with a Central, PICC or Fol: No Subjective Patient reports: No new complaints (pain controlled) Objective vital signs Vital Sign Date Time Temp Pulse Resp B/P (MAP) Pulse Ox O2 Delivery O2 Flow Rate FiO2 12/12/24 05:00 99.2 94 18 137/83 (101) 92 99.2 12/11/24 20:00 Room Air* 0 21 Total Intake and Output 12/11/24 12/11/24 12/12/24 15:00 23:00 07:00 Intake Total 100 ml 0 ml 800 ml Balance 100 ml 0 ml 800 ml medications Current Medications Medications Dose Ordered Sig/Tex Route Start Time Stop Time Status Last Admin Dose Admin Ondansetron HCl 4 mg Q4HP PRN IV 12/10/24 19:30 12/12/24 04:34 4 MG Morphine Sulfate 2 mg Q4HPRN PRN IV 12/10/24 19:30 12/12/24 04:25 2 MG Hydrocortisone 1 applic TID PRN TOP 12/11/24 11:30 Multivitamins 1 tab DAILY PO 12/12/24 10:00 Ascorbic Acid 1,000 mg DAILY PO 12/12/24 10:00 Mupirocin 1 applic BID EACHNOSTRI 12/11/24 22:00 12/16/24 21:59 12/11/24 21:22 1 APPLIC Levothyroxine Sodium 125 mcg QAM@0600 PO 12/12/24 06:00 12/12/24 05:19 125 MCG Apixaban 5 mg BID PO 12/12/24 10:00 Examination: GENERAL:Normal, MSK:Abnormal laboratory and microbiology Laboratory Tests 12/11/24 06:00 12/10/24 15:28 Test 12/11/24 06:00 Range/Units Serum Glucose 80 74-106 mg/dL Microbiology Date/Time Source Procedure Growth Status 12/11/24 05:00 Nose MRSA Screen - Final Methicillin Resistant S.aureus Complete 12/10/24 15:28 Blood Blood Culture - Preliminary NO GROWTH AFTER 24 HOURS OF INCUBATION. Resulted Problem List/Assessment/Plan Problem List/Assessment/Plan 74 yo F s/p I&D/wound closure right knee POD 1 1. WBAT with walker in knee immobilizer 2. PT 3. pain contorl 4. DVT treatment 5. prevena vac on x 1 week 6. follow up in [facility] ortho office next week 7. culture pending Plan discussed with: Patient My Orders My Orders Orders - MAI SQUIRES MD Procedure Category Date Status Time Electrocardigram EKG 12/11/24 Logged 12:00 Anaerobic Culture MARITZA 12/11/24 In Process 14:29 Gram Stain MARITZA 12/11/24 In Process 14:29 Routine Bacterial MARITZA 12/11/24 In Process Culture 14:29 Cardiac DIET 12/11/24 Transmitted Diet-2gna,Lofat,Lochol Dinner Weight-Bearing MATILDA 12/11/24 In Process Restrictions 14:49 Pt Request For Service PT 12/11/24 Logged 14:49 Multiple Vitamin PHA 12/12/24 In Process Tablet (Mvi Tab) 10:00 Ascorbic Acid Tablet PHA 12/12/24 In Process (Vitamin C Tablet) 10:00 MAI SQUIRES MD Dec 12, 2024 07:44
--- NOTE | 2024-12-12 08:12 | ECG ---
[facility] Test Date: 2024-12-11 Test Time: 12:44:42 Pat Name: MANUEL TEJEDA Department: Room: 0288 Gender: F Narrative Writer: HILDA : 1950 Requested By: MAI SQUIRES Order Number: [id number] Reading MD: Reginaldo Alvarez Measurements Intervals [place] Rate: 81 P: 22 UT: 149 QRS: 20 QRSD: 80 T: 9 QT: 444 QTc: 516 Interpretive Statements Sinus rhythm Low voltage, extremity leads Prolonged QT interval Electronically Signed On 12-15-2024 21:31:19 PDT by Reginaldo Alvarez Please click the below link to view image of tracing.
[2024-12-12] MEDS: ASCORBIC ACID 500 MG TAB PO SCH (09:46)
[2024-12-12] MEDS: MULTIPLE VITAMIN TAB PO SCH (09:46)
[2024-12-12] MEDS: APIXABAN 5 MG TAB PO SCH (09:46)
[2024-12-12] MEDS ORDERED: PHENYLEPHRINE HCL 10 MG/ML VL IV ONE (18:15)
--- NOTE | 2024-12-12 18:54 | DVHPN2 ---
Subjective seen in bed Reviewed: H&P, Labs Changes from previous H/P or p: No Changes Objective Vitals Vital Signs Date Time Temp Pulse Resp B/P (MAP) Pulse Ox O2 Delivery O2 Flow Rate FiO2 12/12/24 17:00 98.5 90 18 109/57 (74) 93 98.5 12/12/24 08:00 Room Air* 0 21 Intake/Output Intake and Output 12/12/24 07:00 Intake Total 900 ml Balance 900 ml Intake Oral 800 ml IV Total 100 ml # Voids 7 General Appearance: Alert, Oriented X3 Lungs: Clear to auscultation Cardiovascular: Regular rate, Normal S1, Normal S2 Abdomen: Normal bowel sounds Medications Current Medications Medications Dose Ordered Sig/Tex Route Start Time Stop Time Status Last Admin Dose Admin Ondansetron HCl 4 mg Q4HP PRN IV 12/10/24 19:30 12/12/24 04:34 4 MG Morphine Sulfate 2 mg Q4HPRN PRN IV 12/10/24 19:30 12/12/24 14:21 2 MG Hydrocortisone 1 applic TID PRN TOP 12/11/24 11:30 Multivitamins 1 tab DAILY PO 12/12/24 10:00 12/12/24 09:46 1 TAB Ascorbic Acid 1,000 mg DAILY PO 12/12/24 10:00 12/12/24 09:46 1,000 MG Mupirocin 1 applic BID EACHNOSTRI 12/11/24 22:00 12/16/24 21:59 12/12/24 10:03 1 APPLIC Levothyroxine Sodium 125 mcg QAM@0600 PO 12/12/24 06:00 12/12/24 05:19 125 MCG Apixaban 5 mg BID PO 12/12/24 10:00 12/12/24 09:46 5 MG Laboratory Results Laboratory Tests 12/10/24 15:28 12/11/24 06:00 HgA1c, TSH Test 12/12/24 06:50 Thyroid Stimulating Hormone (TSH) 2.32 uIU/mL (0.55-4.78) Microbiology Microbiology Date/Time Source Procedure Growth Status 12/11/24 14:29 Knee Right Gram Stain - Final Resulted 12/11/24 14:29 Knee Right Anaerobic Culture - Preliminary Resulted 12/11/24 14:29 Knee Right Aerobic Culture - Preliminary Resulted 12/10/24 15:28 Blood Blood Culture - Preliminary NO GROWTH AFTER 48 HOURS OF INCUBATION. Resulted Assessment/Plan Assessment/Plan ? Distal tibial fracture Surgical wound dehiscence Morbid obesity s/p I&D/wound closure right knee POD 1 IV abx Culture pending Plan discussed with: Patient Date of Service: Dec 12, 2024 Billing Provider: SHERMAN WU MD Common Visit Codes: [id number] INP/OBS CARE(HIGH) SHERMAN WU MD Dec 12, 2024 18:54
[2024-12-13] VITALS (8 sets, daily range): BP systolic 105–127; BP diastolic 49–69; PULSE 93–112; RESP 16–19; TEMP 97.9–99.3; O2SAT 93–98
[2024-12-13] MEDS: HYDROCORTONE 1% TOPICAL CREAM 30 GM TUBE TOP PRN (05:34)
--- NOTE | 2024-12-13 11:41 | DVH ---
EXAM: CT HEAD WITHOUT CONTRAST INDICATION: stroke TECHNIQUE: CT of the head without intravenous contrast. Coronal and sagittal reformatted images are s ubmitted. Radiation Dose : 1. Head: CT Dose: CTDI volume is 59.8 mGy. Dose-length product is 1117.3 mGy*cm The dose indicators for CT are the volume Computed Tomography (CT) Dose Index (CTDIvol) and the Dose Length Product (DLP), and are measured in units of mGy and mGy-cm, respectively. These indicators are not patient dose, but values generated from the CT scanner acquisition factors. The report includes radiation exposure data for exposures received during this examination. All CT scans at this medical facility are performed using dose modulation techniques as appropriate to a performed exam including the following: Automated exposure control was utilized; adjustment of the MA and/or KV according to patient size; and use of iterative reconstruction technique. COMPARISON: None FINDINGS: There is no evidence of acute intracranial hemorrhage, extra-axial collection, mass effect, midline s hift, herniation or hydrocephalus. 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 The ventricles, sulci and cisterns are age appropriate. The harrell-white differentiation is intact. Mastoid air cells are clear. Mucosal thickening in the sphenoid sinus. No depressed calvarial fracture. The surrounding soft tissues are unremarkable. IMPRESSION: 1. No acute intracranial abnormality.
[2024-12-13] MEDS: HYDROcodone-ACET 5/325MG TAB PO PRN (14:05)
--- NOTE | 2024-12-13 16:04 | DVHPN2 ---
Subjective seen in bed per nurse and patient feels some numbness on left leg Reviewed: H&P, Labs Changes from previous H/P or p: No Changes Objective Vitals Vital Signs Date Time Temp Pulse Resp B/P (MAP) Pulse Ox O2 Delivery O2 Flow Rate FiO2 12/13/24 12:58 98.4 97 16 116/62 (80) 98 98.4 12/12/24 20:00 Room Air* 0 21 Intake/Output Intake and Output 12/13/24 07:00 Intake Total 750 ml Balance 750 ml Intake Oral 750 ml # Voids 7 General Appearance: Alert, Oriented X3 Lungs: Clear to auscultation Cardiovascular: Regular rate, Normal S1, Normal S2 Abdomen: Normal bowel sounds Medications Current Medications Medications Dose Ordered Sig/Tex Route Start Time Stop Time Status Last Admin Dose Admin Ondansetron HCl 4 mg Q4HP PRN IV 12/10/24 19:30 12/12/24 04:34 4 MG Morphine Sulfate 2 mg Q4HPRN PRN IV 12/10/24 19:30 12/13/24 09:53 2 MG Hydrocortisone 1 applic TID PRN TOP 12/11/24 11:30 12/13/24 05:34 1 APPLIC Multivitamins 1 tab DAILY PO 12/12/24 10:00 12/13/24 09:51 1 TAB Ascorbic Acid 1,000 mg DAILY PO 12/12/24 10:00 12/13/24 09:51 1,000 MG Mupirocin 1 applic BID EACHNOSTRI 12/11/24 22:00 12/16/24 21:59 12/12/24 21:51 1 APPLIC Levothyroxine Sodium 125 mcg QAM@0600 PO 12/12/24 06:00 12/13/24 06:32 125 MCG Apixaban 5 mg BID PO 12/12/24 10:00 12/13/24 09:51 5 MG Acetaminophen/ Hydrocodone Bitart 1 tab Q6HPRN PRN PO 12/13/24 13:45 12/13/24 14:05 1 TAB Laboratory Results Laboratory Tests 12/10/24 15:28 12/11/24 06:00 Microbiology Microbiology Date/Time Source Procedure Growth Status 12/11/24 14:29 Knee Right Gram Stain - Final Resulted 12/11/24 14:29 Knee Right Anaerobic Culture - Preliminary Resulted 12/11/24 14:29 Knee Right Aerobic Culture - Preliminary Resulted 12/10/24 15:28 Blood Blood Culture - Preliminary NO GROWTH AFTER 48 HOURS OF INCUBATION. Resulted Assessment/Plan Assessment/Plan ? Distal tibial fracture Surgical wound dehiscence Morbid obesity s/p I&D/wound closure right knee POD 2 IV abx Culture pending CT head stat due to left leg numbness Plan discussed with: Patient My Orders Orders - SHERMAN WU MD Procedure Category Date Status Time Head Without Contrast CT 12/13/24 Resulted 10:30 Hydrocodone-Acet PHA 12/13/24 In Process 5/325mg Tab ([place] 13:45 Date of Service: Dec 13, 2024 Billing Provider: SHERMAN WU MD Common Visit Codes: [id number] INP/OBS CARE(HIGH) SHERMAN WU MD Dec 13, 2024 16:04
[2024-12-14] VITALS (7 sets, daily range): BP systolic 107–134; BP diastolic 53–68; PULSE 87–102; RESP 16–20; TEMP 97.5–99.5; O2SAT 87–98
[2024-12-14 12:25] LABS: Hematocrit 35.2 % (36.0-46.0); Hemoglobin 11.3 g/dL (12.2-16.2); Mean Corpuscular Hemoglobin 27.7 pg (28.0-32.0); Mean Corpuscular Volume 86.7 fL (80.0-100.0); Nucleated Red Blood Cells % 0.0 %
--- NOTE | 2024-12-14 14:05 | DVH ---
MRI BRAIN HEAD WO CONTRAST INDICATION: stroke rule out EXAM DATE: 12/14/2024 01:15 PM COMPARISON: 12/13/24 PROCEDURE: Using a 1.5 Lizzy scanner, multisequence multiplanar imaging of the brain was obtained. FINDINGS: The brainshows normal morphology and signal characteristics. No abnormal T2 hyperintensity, diffusion restriction, or susceptibility hypointensity is present. The ventricles are normal in size . The midline structures are intact. The major intracranial flow voids are present. The aerated space s are normal. The orbital contents and extracranial soft tissues appear normal. IMPRESSION: No acute abnormal MRI findings of the brain.
--- NOTE | 2024-12-14 15:36 | DVH ---
EXAM: XY L KNEE 2V XRAY HISTORY: left knee pain COMPARISON: XY R KNEE 2V XRAY on DOS: 11/10/24, XY R KNEE 2V XRAY on DOS: 11/05/24 TECHNIQUE: AP and lateral views of the left knee were performed. FINDINGS: No acute fracture is identified about the left knee. There is a 2.8 cm sclerotic lesion in the distal femur likely a chondroid lesion. Medial and lateral compartment joint space narrowing. IMPRESSION: 1. No acute fracture or dislocation.
--- NOTE | 2024-12-14 15:37 | DVH ---
PROCEDURE: Left hip radiographs. INDICATION: Left hip pain TECHNIQUE: 2 views of the left hip were obtained. COMPARISON: None FINDINGS: There is no evidence of fracture or dislocation. Joint spaces are maintained. The soft tis sues are unremarkable. IMPRESSION: 1. No fracture or dislocation.
--- NOTE | 2024-12-14 15:57 | DVHPN2 ---
Subjective seen in bed per nurse and patient feels some numbness on left leg Reviewed: H&P, Labs Changes from previous H/P or p: No Changes Objective Vitals Vital Signs Date Time Temp Pulse Resp B/P (MAP) Pulse Ox O2 Delivery O2 Flow Rate FiO2 12/14/24 09:00 98.4 96 16 125/53 (77) 97 98.4 12/14/24 08:15 Room Air* 0 21 Intake/Output Intake and Output 12/14/24 06:59 Intake Total 1350 ml Balance 1350 ml Intake Oral 1350 ml # Voids 4 General Appearance: Alert, Oriented X3 Lungs: Clear to auscultation Cardiovascular: Regular rate, Normal S1, Normal S2 Abdomen: Normal bowel sounds Medications Current Medications Medications Dose Ordered Sig/Tex Route Start Time Stop Time Status Last Admin Dose Admin Ondansetron HCl 4 mg Q4HP PRN IV 12/10/24 19:30 12/14/24 09:39 4 MG Morphine Sulfate 2 mg Q4HPRN PRN IV 12/10/24 19:30 12/14/24 08:26 2 MG Hydrocortisone 1 applic TID PRN TOP 12/11/24 11:30 12/13/24 05:34 1 APPLIC Multivitamins 1 tab DAILY PO 12/12/24 10:00 12/13/24 09:51 1 TAB Ascorbic Acid 1,000 mg DAILY PO 12/12/24 10:00 12/13/24 09:51 1,000 MG Mupirocin 1 applic BID EACHNOSTRI 12/11/24 22:00 12/16/24 21:59 12/12/24 21:51 1 APPLIC Levothyroxine Sodium 125 mcg QAM@0600 PO 12/12/24 06:00 12/14/24 05:52 125 MCG Apixaban 5 mg BID PO 12/12/24 10:00 12/13/24 22:08 5 MG Acetaminophen/ Hydrocodone Bitart 1 tab Q6HPRN PRN PO 12/13/24 13:45 12/14/24 12:30 1 TAB Laboratory Results Laboratory Tests 12/11/24 06:00 12/14/24 11:49 Microbiology Microbiology Date/Time Source Procedure Growth Status 12/11/24 14:29 Knee Right Gram Stain - Final Resulted 12/11/24 14:29 Knee Right Anaerobic Culture - Preliminary Resulted 12/11/24 14:29 Knee Right Aerobic Culture - Preliminary Resulted 12/10/24 15:28 Blood Blood Culture - Preliminary NO GROWTH AFTER 72 HOURS OF INCUBATION. Resulted Assessment/Plan Assessment/Plan ? Distal tibial fracture Surgical wound dehiscence Morbid obesity s/p I&D/wound closure right knee POD 3 IV abx Culture pending MRI brain and left knee and pelvis Exam is non focal with no weakness, mostly pain on moving left leg Plan discussed with: Patient My Orders Orders - SHERMAN WU MD Procedure Category Date Status Time Blood Culture MARITZA 12/14/24 In Process 10:26 Brain Head Wo Contrast MRI 12/14/24 Resulted 10:26 L Knee 2v Xray XY 12/14/24 Resulted 10:26 L Hip 1v Xray XY 12/14/24 Resulted 10:26 Date of Service: Dec 14, 2024 Billing Provider: SHERMAN WU MD Common Visit Codes: [id number] INP/OBS CARE(HIGH) SHERMAN WU MD Dec 14, 2024 15:57
[2024-12-14] MEDS ORDERED: VANCOMYCIN PER PHARMACY 0 MG IV SCH (16:00)
[2024-12-14] MEDS: VANCOMYCIN 1.5GM/300ML 300 ML IV ONE (16:54)
[2024-12-15 01:00] VITALS: BP 127/62; PULSE 96; RESP 18; TEMP 98.8; O2SAT 96
[2024-12-15 05:00] VITALS: BP 108/68; PULSE 102; RESP 20; TEMP 98.8; O2SAT 96
[2024-12-15] MEDS: ceFAZolin 2 GM/D5W50ml 50 ML IV ONE (08:11)
[2024-12-15 08:30] VITALS: BP 117/68; PULSE 95; RESP 16; TEMP 98.3; O2SAT 97
[2024-12-15 12:53] VITALS: BP 113/61; PULSE 101; RESP 16; TEMP 98.3; O2SAT 94
[2024-12-15 14:40] LABS: Hematocrit 32.3 % (36.0-46.0); Hemoglobin 10.7 g/dL (12.2-16.2); Mean Corpuscular Hemoglobin 27.9 pg (28.0-32.0); Mean Corpuscular Volume 84.6 fL (80.0-100.0); Nucleated Red Blood Cells % 0.0 %
[2024-12-15 14:51] LABS: Chloride 100 mmol/L (98-107); Potassium 4.5 mmol/L (3.5-5.1)
[2024-12-15 14:52] LABS: Anion Gap 9 (5-15); Calcium 8.7 mg/dL (8.7-10.4); Carbon Dioxide 26 mmol/L (20-31)
[2024-12-15 14:54] LABS: Sodium 135 mmol/L (136-145)
[2024-12-15 14:57] LABS: Glucose 100 mg/dL (74-106)
[2024-12-15 14:58] LABS: BUN/Creatinine Ratio 27.8 (10.0-20.0); Blood Urea Nitrogen 20 mg/dL (9-23)
[2024-12-15] MEDS ORDERED: VANCOMYCIN 1.5GM/300ML 300 ML IV SCH (16:00)
[2024-12-15] MEDS: VANCOMYCIN 1.5GM/300ML 300 ML IV ONE (16:31)
[2024-12-15 16:37] VITALS: BP 110/70; PULSE 84; RESP 15; TEMP 98.5; O2SAT 95
--- NOTE | 2024-12-15 18:00 | DVHPN2 ---
Subjective seen in bed per nurse and patient feels some numbness on left leg Reviewed: H&P, Labs Changes from previous H/P or p: No Changes Objective Vitals Vital Signs Date Time Temp Pulse Resp B/P (MAP) Pulse Ox O2 Delivery O2 Flow Rate FiO2 12/15/24 16:37 98.5 84 15 110/70 (83) 95 98.5 12/15/24 08:00 Room Air* 0 21 Intake/Output Intake and Output 12/15/24 07:00 Intake Total 825 ml Balance 825 ml Intake Oral 375 ml IV Total 200 ml Tube Feeding 250 ml # Voids 11 General Appearance: Alert, Oriented X3 Lungs: Clear to auscultation Cardiovascular: Regular rate, Normal S1, Normal S2 Abdomen: Normal bowel sounds Medications Current Medications Medications Dose Ordered Sig/Tex Route Start Time Stop Time Status Last Admin Dose Admin Ondansetron HCl 4 mg Q4HP PRN IV 12/10/24 19:30 12/15/24 11:38 4 MG Morphine Sulfate 2 mg Q4HPRN PRN IV 12/10/24 19:30 12/15/24 14:46 2 MG Hydrocortisone 1 applic TID PRN TOP 12/11/24 11:30 12/13/24 05:34 1 APPLIC Multivitamins 1 tab DAILY PO 12/12/24 10:00 12/13/24 09:51 1 TAB Ascorbic Acid 1,000 mg DAILY PO 12/12/24 10:00 12/13/24 09:51 1,000 MG Mupirocin 1 applic BID EACHNOSTRI 12/11/24 22:00 12/16/24 21:59 12/12/24 21:51 1 APPLIC Levothyroxine Sodium 125 mcg QAM@0600 PO 12/12/24 06:00 12/15/24 05:55 125 MCG Apixaban 5 mg BID PO 12/12/24 10:00 12/15/24 11:38 5 MG Acetaminophen/ Hydrocodone Bitart 1 tab Q6HPRN PRN PO 12/13/24 13:45 12/15/24 12:52 1 TAB Vancomycin HCl 0 ml @ 0 mls/hr UD IV 12/14/24 16:00 Cancel Laboratory Results Laboratory Tests 12/15/24 14:00 Chemistry Test 12/15/24 14:00 Calcium Level 8.7 mg/dL (8.7-10.4) Microbiology Microbiology Date/Time Source Procedure Growth Status 12/14/24 11:49 Blood Blood Culture - Preliminary NO GROWTH AFTER 24 HOURS OF INCUBATION. Resulted 12/11/24 14:29 Knee Right Gram Stain - Final Resulted 12/11/24 14:29 Knee Right Anaerobic Culture - Preliminary Resulted 12/11/24 14:29 Knee Right Aerobic Culture - Preliminary Resulted Assessment/Plan Assessment/Plan ? Distal tibial fracture Surgical wound dehiscence Morbid obesity s/p I&D/wound closure right knee POD 4 IV abx Blood and cx from wound negative continue IV vanco CT lumbar spine today Exam is non focal with no weakness, mostly pain on moving left leg Plan discussed with: Patient My Orders Orders - SHERMAN WU MD Procedure Category Date Status Time Creatinine LAB 12/16/24 Verified 04:00 Vancomycin Per MATILDA 12/15/24 In Process Pharmacy Protoc 16:00 Vancomycin,Random LAB 12/16/24 Verified 04:00 Ls Spine Wo Contrast CT 12/15/24 Logged 13:17 Complete Blood Count LAB 12/16/24 Verified 05:00 Complete Blood Count LAB 12/17/24 Verified 05:00 Complete Blood Count LAB 12/18/24 Verified 05:00 Complete Blood Count LAB 12/19/24 Verified 05:00 Complete Blood Count LAB 12/20/24 Verified 05:00 Complete Blood Count LAB 12/21/24 Verified 05:00 Complete Blood Count LAB 12/22/24 Verified 05:00 Basic Metabolic Panel LAB 12/16/24 Verified 05:00 Basic Metabolic Panel LAB 12/17/24 Verified 05:00 Basic Metabolic Panel LAB 12/18/24 Verified 05:00 Basic Metabolic Panel LAB 12/19/24 Verified 05:00 Basic Metabolic Panel LAB 12/20/24 Verified 05:00 Basic Metabolic Panel LAB 12/21/24 Verified 05:00 Basic Metabolic Panel LAB 12/22/24 Verified 05:00 Date of Service: Dec 15, 2024 Billing Provider: SHERMAN WU MD Common Visit Codes: [id number] INP/OBS CARE(HIGH) SHERMAN WU MD Dec 15, 2024 18:00
[2024-12-15 21:00] VITALS: BP 118/74; PULSE 91; RESP 16; TEMP 97.6; O2SAT 98
--- NOTE | 2024-12-15 21:09 | DVH ---
CT LS SPINE WO CONTRAST Date: 12/15/2024 05:46 PM History: back pain Comparison: None TECHNIQUE: Multiple axial CT images of the lumbosacral spine were obtained using bone algorithm. Axial and coron al reformatting was done. Bone and soft tissue windows were reviewed. Radiation Dose Information: CT Dose: CTDI volume is 35.41 mGy. Dose-length product is 1512.34 mGy*cm FINDINGS: No CT evidence of definite acute fracture, spinal dislocation, or significant appearing acute subluxa tion is seen. The visualized paraspinal soft tissues are grossly unremarkable. T12-L1 There is no evidence of central spinal canal or neuroforaminal stenosis. L1-L2 There is no evidence of central spinal canal or neuroforaminal stenosis. L2-L3 There is no evidence of central spinal canal or neuroforaminal stenosis. L3-L4 There is no evidence of central spinal canal or neuroforaminal stenosis. L4-L5 There is no evidence of central spinal canal or neuroforaminal stenosis. L5-S1 grade 1 anterior spondylolisthesis L5-S1. Bilateral spondylolysis IMPRESSION: 1. No definite CT evidence of acute fracture or dislocation of the bony lumbar spine. 2. Bilateral spondylolysis at L5 with a grade 1 anterior spondylolisthesis at L5-S1. All CT scans at this medical facility are performed using dose modulation techniques as appropriate t o a performed exam including the following: Automated exposure control was utilized; adjustment of th e MA and/or KV according to patient size; and use of iterative reconstruction technique.
[2024-12-16] VITALS (7 sets, daily range): BP systolic 106–118; BP diastolic 59–67; PULSE 79–91; RESP 16–18; TEMP 97.3–98.8; O2SAT 90–99
[2024-12-16 06:24] LABS: Hematocrit 30.9 % (36.0-46.0); Hemoglobin 10.2 g/dL (12.2-16.2); Mean Corpuscular Hemoglobin 28.0 pg (28.0-32.0); Mean Corpuscular Volume 84.7 fL (80.0-100.0); Nucleated Red Blood Cells % 0.0 %
[2024-12-16 06:44] LABS: Chloride 100 mmol/L (98-107); Potassium 4.4 mmol/L (3.5-5.1); Sodium 136 mmol/L (136-145)
[2024-12-16 06:45] LABS: Anion Gap 11 (5-15); Calcium 8.7 mg/dL (8.7-10.4); Carbon Dioxide 25 mmol/L (20-31)
[2024-12-16 06:50] LABS: BUN/Creatinine Ratio 28.8 (10.0-20.0); Blood Urea Nitrogen 19 mg/dL (9-23); Glucose 86 mg/dL (74-106)
[2024-12-16] MEDS ORDERED: VANCOMYCIN PER PHARMACY 0 MG IV SCH (09:30)
[2024-12-16] MEDS ORDERED: VANCOMYCIN 1.25GM/250ML 250 ML IV ONE (16:00)
--- NOTE | 2024-12-16 16:39 | DVHPN2 ---
Subjective Seen in bed and pain and numbness improved Reviewed: H&P, Labs Changes from previous H/P or p: No Changes Objective Vitals Vital Signs Date Time Temp Pulse Resp B/P (MAP) Pulse Ox O2 Delivery O2 Flow Rate FiO2 12/16/24 14:37 79 16 118/60 12/16/24 13:00 97.3 91 97.3 12/16/24 08:00 Room Air* 0 21 Intake/Output Intake and Output 12/16/24 07:00 Intake Total 1080 ml Output Total 500 ml Balance 580 ml Intake Oral 1080 ml Output Urine Total 500 ml # Voids 5 General Appearance: Alert, Oriented X3 Lungs: Clear to auscultation Cardiovascular: Regular rate, Normal S1, Normal S2 Abdomen: Normal bowel sounds Medications Current Medications Medications Dose Ordered Sig/Tex Route Start Time Stop Time Status Last Admin Dose Admin Ondansetron HCl 4 mg Q4HP PRN IV 12/10/24 19:30 12/15/24 11:38 4 MG Morphine Sulfate 2 mg Q4HPRN PRN IV 12/10/24 19:30 12/16/24 14:37 2 MG Hydrocortisone 1 applic TID PRN TOP 12/11/24 11:30 12/13/24 05:34 1 APPLIC Multivitamins 1 tab DAILY PO 12/12/24 10:00 12/13/24 09:51 1 TAB Ascorbic Acid 1,000 mg DAILY PO 12/12/24 10:00 12/13/24 09:51 1,000 MG Mupirocin 1 applic BID EACHNOSTRI 12/11/24 22:00 12/16/24 21:59 12/12/24 21:51 1 APPLIC Levothyroxine Sodium 125 mcg QAM@0600 PO 12/12/24 06:00 12/16/24 05:22 125 MCG Apixaban 5 mg BID PO 12/12/24 10:00 12/16/24 09:28 5 MG Acetaminophen/ Hydrocodone Bitart 1 tab Q6HPRN PRN PO 12/13/24 13:45 12/16/24 13:10 1 TAB Vancomycin HCl 0 ml @ 0 mls/hr UD IV 12/14/24 16:00 Cancel Vancomycin HCl 0 ml @ 0 mls/hr UD IV 12/16/24 09:30 Laboratory Results Laboratory Tests 12/16/24 05:02 Chemistry Test 12/16/24 05:02 Calcium Level 8.7 mg/dL (8.7-10.4) Microbiology Microbiology Date/Time Source Procedure Growth Status 12/14/24 11:49 Blood Blood Culture - Preliminary NO GROWTH AFTER 48 HOURS OF INCUBATION. Resulted 12/11/24 14:29 Knee Right Gram Stain - Final Resulted 12/11/24 14:29 Knee Right Anaerobic Culture - Preliminary Resulted 12/11/24 14:29 Knee Right Aerobic Culture - Final Resulted Assessment/Plan Assessment/Plan ? Distal tibial fracture Surgical wound dehiscence Morbid obesity s/p I&D/wound closure right knee POD 5 IV abx Blood and cx from wound negative continue IV vanco CT lumbar spine with DJD Exam is non focal with no weakness, mostly pain on moving left leg Plan discussed with: Patient My Orders Orders - SHERMAN WU MD Procedure Category Date Status Time Vancomycin Per PHA 12/16/24 In Process Pharmacy 09:30 Vancomycin,Random LAB 12/17/24 Verified 04:00 Date of Service: Dec 16, 2024 Billing Provider: SHERMAN WU MD Common Visit Codes: [id number] INP/OBS CARE(HIGH) SHERMAN WU MD Dec 16, 2024 16:39
[2024-12-16] MEDS: VANCOMYCIN 500mg/100mL PREMIX or KIT IV ONE (17:58)
[2024-12-17] VITALS (8 sets, daily range): BP systolic 103–122; BP diastolic 54–66; PULSE 76–96; RESP 17–18; TEMP 97.4–98.4; O2SAT 90–95
[2024-12-17] MEDS: LACTULOSE 20Gm/30ML SOLN PO ONE (00:53)
[2024-12-17 05:37] LABS: Hematocrit 29.5 % (36.0-46.0); Hemoglobin 9.8 g/dL (12.2-16.2); Mean Corpuscular Hemoglobin 28.5 pg (28.0-32.0); Mean Corpuscular Volume 85.2 fL (80.0-100.0); Nucleated Red Blood Cells % 0.1 %
[2024-12-17 05:42] LABS: Chloride 104 mmol/L (98-107); Potassium 3.9 mmol/L (3.5-5.1); Sodium 138 mmol/L (136-145)
[2024-12-17 05:43] LABS: Anion Gap 8 (5-15); Carbon Dioxide 26 mmol/L (20-31)
[2024-12-17 05:44] LABS: Calcium 8.5 mg/dL (8.7-10.4)
[2024-12-17 05:48] LABS: BUN/Creatinine Ratio 25.0 (10.0-20.0); Blood Urea Nitrogen 17 mg/dL (9-23)
[2024-12-17 05:50] LABS: Albumin 3.3 g/dL (3.2-4.8)
[2024-12-17 05:55] LABS: Glucose 109 mg/dL (74-106)
[2024-12-17] MEDS: CYCLOBENZAPRINE HCL 10 MG TAB PO PRN (10:21)
--- NOTE | 2024-12-17 12:42 | DVHPN2 ---
Subjective working more with PT now Reviewed: H&P, Labs Changes from previous H/P or p: No Changes Objective Vitals Vital Signs Date Time Temp Pulse Resp B/P (MAP) Pulse Ox O2 Delivery O2 Flow Rate FiO2 12/17/24 11:47 80 16 114/54 12/17/24 08:57 97.8 91 97.8 12/17/24 08:00 Room Air* 0 21 Intake/Output Intake and Output 12/17/24 07:00 Intake Total 700 ml Balance 700 ml Intake Oral 700 ml # Voids 6 General Appearance: Alert, Oriented X3 Lungs: Clear to auscultation Cardiovascular: Regular rate, Normal S1, Normal S2 Abdomen: Normal bowel sounds Medications Current Medications Medications Dose Ordered Sig/Tex Route Start Time Stop Time Status Last Admin Dose Admin Ondansetron HCl 4 mg Q4HP PRN IV 12/10/24 19:30 12/15/24 11:38 4 MG Morphine Sulfate 2 mg Q4HPRN PRN IV 12/10/24 19:30 12/17/24 11:47 2 MG Hydrocortisone 1 applic TID PRN TOP 12/11/24 11:30 12/13/24 05:34 1 APPLIC Multivitamins 1 tab DAILY PO 12/12/24 10:00 12/17/24 10:21 1 TAB Ascorbic Acid 1,000 mg DAILY PO 12/12/24 10:00 12/17/24 10:21 1,000 MG Levothyroxine Sodium 125 mcg QAM@0600 PO 12/12/24 06:00 12/17/24 06:42 125 MCG Apixaban 5 mg BID PO 12/12/24 10:00 12/17/24 10:21 5 MG Acetaminophen/ Hydrocodone Bitart 1 tab Q6HPRN PRN PO 12/13/24 13:45 12/17/24 10:22 1 TAB Vancomycin HCl 0 ml @ 0 mls/hr UD IV 12/14/24 16:00 Cancel Vancomycin HCl 0 ml @ 0 mls/hr UD IV 12/16/24 09:30 Cyclobenzaprine HCl 10 mg Q8HPRN PRN PO 12/16/24 16:45 12/17/24 10:21 10 MG Vancomycin HCl 200 ml @ 200 mls/hr Q12H IV 12/17/24 10:00 12/17/24 10:20 200 MLS/HR Laboratory Results Laboratory Tests 12/17/24 04:54 Chemistry Test 12/17/24 04:54 Albumin 3.3 g/dL (3.2-4.8) Calcium Level 8.5 mg/dL (8.7-10.4) L Microbiology Microbiology Date/Time Source Procedure Growth Status 12/14/24 11:49 Blood Blood Culture - Preliminary NO GROWTH AFTER 72 HOURS OF INCUBATION. Resulted 12/11/24 14:29 Knee Right Gram Stain - Final Resulted 12/11/24 14:29 Knee Right Anaerobic Culture - Preliminary Resulted 12/11/24 14:29 Knee Right Aerobic Culture - Final Resulted Assessment/Plan Assessment/Plan ? Distal tibial fracture Surgical wound dehiscence Morbid obesity s/p I&D/wound closure right knee POD6 IV abx Blood and cx from wound negative continue IV vanco CT lumbar spine with DJD Exam is non focal with no weakness, mostly pain on moving left leg Continue PT eval wound vac care Plan discussed with: Patient My Orders Orders - SHERMAN WU MD Procedure Category Date Status Time Cyclobenzaprine PHA 12/16/24 In Process Tablet (Flexeril 16:45 Zinc LAB 12/17/24 Logged 01:22 * Dietary Consult CONS 12/17/24 Transmitted 01:33 Vancomycin 1gm/200ml PHA 12/17/24 In Process Pm 10:00 Vancomycin,Trough LAB 12/18/24 Verified 21:00 Vancomycin Per MATILDA 12/17/24 In Process Pharmacy [facility] 10:00 Date of Service: Dec 17, 2024 Billing Provider: SHERMAN WU MD Common Visit Codes: [id number] INP/OBS CARE(HIGH) SHERMAN WU MD Dec 17, 2024 12:42
--- NOTE | 2024-12-17 20:13 | DVHINCON2 ---
Consult Note Consult Consult Note Subjective: Ms. Vashti Steve is a post-op patient status post irrigation and debridement with graft placement of the right knee performed by Dr. Le following wound breakdown after prior distal femur replacement (DFR). She is seen as inpatient today, POD# 6 , the initial NARESH negative pressure wound therapy system in place. Patient denies fever, drainage, or worsening pain. She reports pain is well controlled and denies new symptoms. She does note that she has not been eating well and expresses concerns about appetite and nutrition. No other specific complaints. NO FEVER, CHILLS REPORTED --- Objective: General: Alert, no acute distress Right Knee Wound Exam: Prior NARESH dressing removed New NARESH wound vac applied today to surgical site Incision clean, dry, and intact No erythema, edema, or discharge No signs of wound dehiscence or infection Bracing: Continues in straight-leg brace Mobility: Working with Physical Therapy for weight-bearing progression Pain: Well controlled on current regimen Labs: Previously ordered wound optimization labs (albumin, pre-albumin, zinc, vitamin D) not yet completed Microbiology: Nasal swab recently positive for MRSA Patient has been in isolation and is currently receiving appropriate treatment Nutrition: Intake is poor per patient report --- Assessment: 1. Status post right knee I&D and graft placement stable post-op course 2. Healing surgical wound with NARESH therapy wound appears healthy with no signs of infection 3. History of DVT on anticoagulation, managed by hospitalist per protocol 4. Positive MRSA nasal colonization under treatment, no signs of wound infection 5. Malnutrition risk poor oral intake, at risk for delayed wound healing --- Plan: Continue NARESH wound vac management as per protocol, NEW PICCO WOUND VAC REPLACED TODAY. Monitor for wound healing and signs of infection Continue straight-leg brace Physical therapy to continue weight-bearing training SCDs to continue for DVT prophylaxis Hospitalist to continue anticoagulation management for history of DVT Hospitalist team to ensure nutrition consult for wound healing optimization Emphasized importance of protein intake, calorie balance, and supplements (e.g., zinc, vitamin D, if low) Recommend nutritional plan established prior to SNF discharge Reinforced education with patient on nutritional needs and wound healing Nursing staff instructed to follow up with hospitalist team regarding incomplete lab orders for wound optimization Patient remains stable. If wound continues to heal well and labs normalize, she will likely be cleared for discharge to SNF in the near future Orthopedic team remains available for re-evaluation if further issues arise during inpatient stay Patient agree with above plan, if any further questions or concerns advised patient to ask Bedside Nurse to contact Orthopedic team Plan discussed with: Patient, Other (bedside nurse) Visit Coding Surgery Date of Service if different f: Dec 17, 2024 Billing Provider: NIKI HALL Surgery Visit Codes: [id number] - INP CONSULT <55 MIN NIKI HALL Dec 17, 2024 20:13
[2024-12-18] VITALS (7 sets, daily range): BP systolic 110–128; BP diastolic 58–76; PULSE 80–90; RESP 17–18; TEMP 97.6–98.7; O2SAT 92–98
[2024-12-18 07:09] LABS: Hematocrit 30.0 % (36.0-46.0); Hemoglobin 9.9 g/dL (12.2-16.2); Mean Corpuscular Hemoglobin 28.0 pg (28.0-32.0); Mean Corpuscular Volume 84.5 fL (80.0-100.0); Nucleated Red Blood Cells % 0.0 %
[2024-12-18 07:18] LABS: Chloride 105 mmol/L (98-107); Potassium 3.9 mmol/L (3.5-5.1); Sodium 140 mmol/L (136-145)
[2024-12-18 07:19] LABS: Anion Gap 8 (5-15); Carbon Dioxide 27 mmol/L (20-31)
[2024-12-18 07:20] LABS: Calcium 9.3 mg/dL (8.7-10.4)
[2024-12-18 07:24] LABS: BUN/Creatinine Ratio 27.1 (10.0-20.0); Blood Urea Nitrogen 16 mg/dL (9-23); Glucose 93 mg/dL (74-106)
[2024-12-18] MEDS: DOCUSATE SOD 100 MG CAP PO SCH (12:19)
--- NOTE | 2024-12-18 19:42 | DVHPN2 ---
Subjective working more with PT now Reviewed: H&P, Labs Changes from previous H/P or p: No Changes Objective Vitals Vital Signs Date Time Temp Pulse Resp B/P (MAP) Pulse Ox O2 Delivery O2 Flow Rate FiO2 12/18/24 17:00 98.4 82 18 117/67 (84) 98 98.4 12/18/24 08:00 Room Air* 0 21 Intake/Output Intake and Output 12/18/24 07:00 Intake Total 1600 ml Balance 1600 ml Intake Oral 1200 ml IV Total 400 ml # Voids 7 General Appearance: Alert, Oriented X3 Lungs: Clear to auscultation Cardiovascular: Regular rate, Normal S1, Normal S2 Abdomen: Normal bowel sounds Medications Current Medications Medications Dose Ordered Sig/Tex Route Start Time Stop Time Status Last Admin Dose Admin Ondansetron HCl 4 mg Q4HP PRN IV 12/10/24 19:30 12/15/24 11:38 4 MG Morphine Sulfate 2 mg Q4HPRN PRN IV 12/10/24 19:30 12/18/24 14:08 2 MG Hydrocortisone 1 applic TID PRN TOP 12/11/24 11:30 12/13/24 05:34 1 APPLIC Multivitamins 1 tab DAILY PO 12/12/24 10:00 12/18/24 09:38 1 TAB Ascorbic Acid 1,000 mg DAILY PO 12/12/24 10:00 12/18/24 09:38 1,000 MG Levothyroxine Sodium 125 mcg QAM@0600 PO 12/12/24 06:00 12/18/24 05:45 125 MCG Apixaban 5 mg BID PO 12/12/24 10:00 12/18/24 09:38 5 MG Acetaminophen/ Hydrocodone Bitart 1 tab Q6HPRN PRN PO 12/13/24 13:45 12/18/24 08:36 1 TAB Vancomycin HCl 0 ml @ 0 mls/hr UD IV 12/14/24 16:00 Cancel Vancomycin HCl 0 ml @ 0 mls/hr UD IV 12/16/24 09:30 Cyclobenzaprine HCl 10 mg Q8HPRN PRN PO 12/16/24 16:45 12/17/24 10:21 10 MG Vancomycin HCl 200 ml @ 200 mls/hr Q12H IV 12/17/24 10:00 12/18/24 09:38 200 MLS/HR Docusate Sodium 100 mg BID PO 12/18/24 13:00 12/18/24 12:19 100 MG Laboratory Results Laboratory Tests 12/18/24 05:44 Chemistry Test 12/18/24 05:44 Calcium Level 9.3 mg/dL (8.7-10.4) Microbiology Microbiology Date/Time Source Procedure Growth Status 12/14/24 11:49 Blood Blood Culture - Preliminary NO GROWTH AFTER 72 HOURS OF INCUBATION. Resulted 12/11/24 14:29 Knee Right Gram Stain - Final Complete 12/11/24 14:29 Knee Right Anaerobic Culture - Final Complete 12/11/24 14:29 Knee Right Aerobic Culture - Final Complete Assessment/Plan Assessment/Plan ? Distal tibial fracture Surgical wound dehiscence Morbid obesity s/p I&D/wound closure right knee POD7 Blood and cx from wound negative continue IV vanco CT lumbar spine with DJD Continue PT wound vac care Plan discussed with: Patient My Orders Orders - SHERMAN WU MD Procedure Category Date Status Time Docusate Sodium PHA 12/18/24 In Process Capsule (Colace 13:00 Regular Diet DIET 12/18/24 Transmitted Lunch Date of Service: Dec 18, 2024 Billing Provider: SHERMAN WU MD Common Visit Codes: [id number] INP/OBS CARE(HIGH) SHERMAN WU MD Dec 18, 2024 19:42
[2024-12-19 05:00] VITALS: BP 117/88; PULSE 96; RESP 17; TEMP 97.7; O2SAT 95
[2024-12-19 07:09] LABS: Hematocrit 29.4 % (36.0-46.0); Hemoglobin 9.8 g/dL (12.2-16.2); Mean Corpuscular Hemoglobin 28.0 pg (28.0-32.0); Mean Corpuscular Volume 84.1 fL (80.0-100.0); Nucleated Red Blood Cells % 0.1 %
[2024-12-19 07:25] LABS: Calcium 9.6 mg/dL (8.7-10.4); Chloride 104 mmol/L (98-107); Potassium 3.6 mmol/L (3.5-5.1); Sodium 140 mmol/L (136-145)
[2024-12-19 07:26] LABS: Anion Gap 9 (5-15); Carbon Dioxide 27 mmol/L (20-31)
[2024-12-19 07:31] LABS: BUN/Creatinine Ratio 23.7 (10.0-20.0); Blood Urea Nitrogen 14 mg/dL (9-23); Glucose 92 mg/dL (74-106)
[2024-12-19 08:00] VITALS: RESP 18; O2SAT 93
[2024-12-19 09:00] VITALS: BP 128/66; PULSE 86; RESP 20; TEMP 98.7; O2SAT 96
[2024-12-19 13:00] VITALS: BP 118/52; PULSE 90; RESP 16; TEMP 98.1; O2SAT 92
[2024-12-19 17:00] VITALS: BP 107/62; PULSE 79; RESP 20; TEMP 97.9; O2SAT 94
[2024-12-19] MEDS ORDERED: VANCOMYCIN 500mg/100mL 100 ML IV SCH (17:00)
--- NOTE | 2024-12-19 18:47 | DVHPN2 ---
Subjective working more with PT now Reviewed: H&P, Labs Changes from previous H/P or p: No Changes Objective Vitals Vital Signs Date Time Temp Pulse Resp B/P (MAP) Pulse Ox O2 Delivery O2 Flow Rate FiO2 12/19/24 17:00 97.9 79 20 107/62 (77) 94 97.9 12/19/24 08:00 Room Air* 0 21 Intake/Output Intake and Output 12/19/24 07:00 Intake Total 1080 ml Output Total 550 ml Balance 530 ml Intake Oral 880 ml IV Total 200 ml Output Urine Total 550 ml # Voids 3 General Appearance: Alert, Oriented X3 Lungs: Clear to auscultation Cardiovascular: Regular rate, Normal S1, Normal S2 Abdomen: Normal bowel sounds Medications Current Medications Medications Dose Ordered Sig/Tex Route Start Time Stop Time Status Last Admin Dose Admin Ondansetron HCl 4 mg Q4HP PRN IV 12/10/24 19:30 12/19/24 10:17 4 MG Morphine Sulfate 2 mg Q4HPRN PRN IV 12/10/24 19:30 12/19/24 12:43 2 MG Hydrocortisone 1 applic TID PRN TOP 12/11/24 11:30 12/13/24 05:34 1 APPLIC Multivitamins 1 tab DAILY PO 12/12/24 10:00 12/19/24 09:33 1 TAB Ascorbic Acid 1,000 mg DAILY PO 12/12/24 10:00 12/19/24 09:32 1,000 MG Levothyroxine Sodium 125 mcg QAM@0600 PO 12/12/24 06:00 12/19/24 05:10 125 MCG Apixaban 5 mg BID PO 12/12/24 10:00 12/19/24 09:32 5 MG Acetaminophen/ Hydrocodone Bitart 1 tab Q6HPRN PRN PO 12/13/24 13:45 12/19/24 09:42 1 TAB Vancomycin HCl 0 ml @ 0 mls/hr UD IV 12/14/24 16:00 Cancel Vancomycin HCl 0 ml @ 0 mls/hr UD IV 12/16/24 09:30 Cyclobenzaprine HCl 10 mg Q8HPRN PRN PO 12/16/24 16:45 12/17/24 10:21 10 MG Docusate Sodium 100 mg BID PO 12/18/24 13:00 12/19/24 09:33 100 MG Vancomycin HCl 100 ml @ 200 mls/hr Q12H IV 12/19/24 17:00 Laboratory Results Laboratory Tests 12/19/24 05:24 Chemistry Test 12/19/24 05:24 Calcium Level 9.6 mg/dL (8.7-10.4) Microbiology Microbiology Date/Time Source Procedure Growth Status 12/14/24 11:49 Blood Blood Culture - Final NO GROWTH AFTER 5 DAYS OF INCUBATION. Complete 12/11/24 14:29 Knee Right Gram Stain - Final Complete 12/11/24 14:29 Knee Right Anaerobic Culture - Final Complete 12/11/24 14:29 Knee Right Aerobic Culture - Final Complete Assessment/Plan Assessment/Plan ? Distal tibial fracture Surgical wound dehiscence Morbid obesity s/p I&D/wound closure right knee POD8 Blood and cx from wound negative continue IV vanco CT lumbar spine with DJD Continue PT wound vac care Dispo Discharge on sunday, family and patient does not want to go to previous SNF, director social aware Plan discussed with: Patient My Orders Orders - SHERMAN WU MD Procedure Category Date Status Time Vancomycin 500mg/100ml PHA 12/19/24 In Process 17:00 Vancomycin,Trough LAB 12/21/24 Verified 04:00 Vancomycin Per MATILDA 12/21/24 In Process Pharmacy Protoc 05:00 Date of Service: Dec 19, 2024 Billing Provider: SHERMAN WU MD Common Visit Codes: [id number] INP/OBS CARE(HIGH) SHERMAN WU MD Dec 19, 2024 18:47
[2024-12-19] MEDS: VANCOMYCIN 500mg/100mL 100 ML IV SCH (20:26)
[2024-12-19 21:00] VITALS: BP 106/63; PULSE 89; RESP 17; TEMP 97.7; O2SAT 90
[2024-12-20] VITALS (8 sets, daily range): BP systolic 105–130; BP diastolic 59–79; PULSE 80–91; RESP 17–19; TEMP 97.8–98.7; O2SAT 91–96
[2024-12-20 07:23] LABS: Hemoglobin 9.9 g/dL (12.2-16.2); Nucleated Red Blood Cells % 0.0 %
[2024-12-20 07:26] LABS: Hematocrit 29.0 % (36.0-46.0); Mean Corpuscular Hemoglobin 29.1 pg (28.0-32.0); Mean Corpuscular Volume 85.3 fL (80.0-100.0)
[2024-12-20 07:32] LABS: Chloride 105 mmol/L (98-107); Potassium 3.9 mmol/L (3.5-5.1); Sodium 141 mmol/L (136-145)
[2024-12-20 07:33] LABS: Anion Gap 11 (5-15); Carbon Dioxide 25 mmol/L (20-31)
[2024-12-20 07:34] LABS: Calcium 9.4 mg/dL (8.7-10.4)
[2024-12-20 07:38] LABS: BUN/Creatinine Ratio 18.3 (10.0-20.0); Blood Urea Nitrogen 11 mg/dL (9-23); Glucose 86 mg/dL (74-106)
--- NOTE | 2024-12-20 18:53 | DVHPN2 ---
Subjective 74-year-old female with a known history of hypertension, hypothyroidism, recent history of right distal femoral replacement arthroplasty on11/10, presented to the hospital with a wound dehiscence status post I and D of the right knee for the right knee wound necrosis with a placement of wound VAC . Patient's son requested rehab placement we will request a psych social worker if insurance approves. All the questions were answered. 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 General Appearance: Alert, Oriented X3 Lungs: Clear to auscultation Cardiovascular: Regular rate, Normal S1, Normal S2 Abdomen: Normal bowel sounds Medications Current Medications Medications Dose Ordered Sig/Tex Route Start Time Stop Time Status Last Admin Dose Admin Ondansetron HCl 4 mg Q4HP PRN IV 12/10/24 19:30 12/19/24 10:17 4 MG Hydrocortisone 1 applic TID PRN TOP 12/11/24 11:30 12/13/24 05:34 1 APPLIC Multivitamins 1 tab DAILY PO 12/12/24 10:00 12/20/24 09:16 1 TAB Ascorbic Acid 1,000 mg DAILY PO 12/12/24 10:00 12/20/24 09:16 1,000 MG Levothyroxine Sodium 125 mcg QAM@0600 PO 12/12/24 06:00 12/20/24 06:19 125 MCG Apixaban 5 mg BID PO 12/12/24 10:00 12/20/24 09:16 5 MG Vancomycin HCl 0 ml @ 0 mls/hr UD IV 12/14/24 16:00 Cancel Vancomycin HCl 0 ml @ 0 mls/hr UD IV 12/16/24 09:30 Cyclobenzaprine HCl 10 mg Q8HPRN PRN PO 12/16/24 16:45 12/17/24 10:21 10 MG Docusate Sodium 100 mg BID PO 12/18/24 13:00 12/20/24 09:16 100 MG Vancomycin HCl 100 ml @ 200 mls/hr Q12H IV 12/19/24 20:00 12/20/24 09:16 200 MLS/HR Acetaminophen/ Hydrocodone Bitart 1 tab Q4HP PRN PO 12/20/24 17:30 Magnesium Hydroxide 30 ml DAILYP PRN PO 12/20/24 17:30 Laboratory Results Laboratory Tests 12/20/24 05:12 Chemistry Test 12/20/24 05:12 Calcium Level 9.4 mg/dL (8.7-10.4) Microbiology Microbiology Date/Time Source Procedure Growth Status 12/14/24 11:49 Blood Blood Culture - Final NO GROWTH AFTER 5 DAYS OF INCUBATION. Complete 12/11/24 14:29 Knee Right Gram Stain - Final Complete 12/11/24 14:29 Knee Right Anaerobic Culture - Final Complete 12/11/24 14:29 Knee Right Aerobic Culture - Final Complete Assessment/Plan Assessment/Plan 74-year-old female with a known history of hypertension, hypothyroidism, recent history of right distal femoral replacement arthroplasty who presented to the hospital with a right knee wound dehiscence found to have 1. Right knee wound day since status post I and D with a wound VAC placement 2. Recent history of right distal femoral replacement arthroplasty 3. History of DVT currently on Eliquis 4. Hypertension 5. Hypothyroidism 6. Constipation -physical therapy evaluation and treatment, bowel regimen -continue broad-spectrum IV antibiotics follow up Orthopedics recommendations. Plan discussed with: Patient, Son My Orders Orders - FARIBA LOMELI MD Procedure Category Date Status Time Hydrocodone-Acet PHA 12/20/24 In Process 5/325mg Tab ([place] 17:30 Magnesium Hydroxide PHA 12/20/24 In Process Suspension (Milk Of 17:30 Date of Service: Dec 20, 2024 Billing Provider: FARIBA LOMELI MD Common Visit Codes: [id number] INP/OBS CARE(MOD) FARIBA LOMELI MD Dec 20, 2024 18:53
[2024-12-20] MEDS: HYDROcodone-ACET 5/325MG TAB PO PRN (23:49)
[2024-12-21] VITALS (8 sets, daily range): BP systolic 110–143; BP diastolic 59–77; PULSE 81–86; RESP 16–19; TEMP 96.5–98.2; O2SAT 91–97
[2024-12-21 07:55] LABS: Hemoglobin 10.0 g/dL (12.2-16.2)
[2024-12-21 07:57] LABS: Hematocrit 30.3 % (36.0-46.0); Mean Corpuscular Hemoglobin 28.2 pg (28.0-32.0); Mean Corpuscular Volume 85.5 fL (80.0-100.0); Nucleated Red Blood Cells % 0.0 %
[2024-12-21 08:06] LABS: Calcium 9.3 mg/dL (8.7-10.4); Chloride 106 mmol/L (98-107); Potassium 3.7 mmol/L (3.5-5.1); Sodium 141 mmol/L (136-145)
[2024-12-21 08:07] LABS: Anion Gap 10 (5-15); Carbon Dioxide 25 mmol/L (20-31)
[2024-12-21 08:12] LABS: BUN/Creatinine Ratio 19.0 (10.0-20.0); Blood Urea Nitrogen 11 mg/dL (9-23); Glucose 87 mg/dL (74-106)
[2024-12-21] MEDS: MILK OF MAGNESIA 30ML SUSP PO PRN (12:45)
[2024-12-21] MEDS ORDERED: PROMETHAZINE HCL 6.25 MG/5 ML ORAL SYRUP PO PRN (13:30)
[2024-12-21] MEDS: LACTULOSE 20Gm/30ML SOLN PO SCH (14:00)
--- NOTE | 2024-12-21 15:58 | DVHPN2 ---
Subjective 74-year-old female with a known history of hypertension, hypothyroidism, recent history of right distal femoral replacement arthroplasty on11/10, presented to the hospital with a wound dehiscence status post I and D of the right knee for the right knee wound necrosis with a placement of wound VAC . Patient's son requested rehab placement we will request a social worker aide if insurance approves. All the questions were answered. 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 General Appearance: Alert, Oriented X3 Lungs: Clear to auscultation Cardiovascular: Regular rate, Normal S1, Normal S2 Abdomen: Normal bowel sounds Medications Current Medications Medications Dose Ordered Sig/Tex Route Start Time Stop Time Status Last Admin Dose Admin Ondansetron HCl 4 mg Q4HP PRN IV 12/10/24 19:30 12/21/24 12:42 4 MG Hydrocortisone 1 applic TID PRN TOP 12/11/24 11:30 12/13/24 05:34 1 APPLIC Multivitamins 1 tab DAILY PO 12/12/24 10:00 12/20/24 09:16 1 TAB Ascorbic Acid 1,000 mg DAILY PO 12/12/24 10:00 12/20/24 09:16 1,000 MG Levothyroxine Sodium 125 mcg QAM@0600 PO 12/12/24 06:00 12/21/24 06:03 125 MCG Apixaban 5 mg BID PO 12/12/24 10:00 12/21/24 08:39 5 MG Vancomycin HCl 0 ml @ 0 mls/hr UD IV 12/14/24 16:00 Cancel Vancomycin HCl 0 ml @ 0 mls/hr UD IV 12/16/24 09:30 Cyclobenzaprine HCl 10 mg Q8HPRN PRN PO 12/16/24 16:45 12/17/24 10:21 10 MG Docusate Sodium 100 mg BID PO 12/18/24 13:00 12/21/24 08:39 100 MG Vancomycin HCl 100 ml @ 200 mls/hr Q12H IV 12/19/24 20:00 12/21/24 08:40 200 MLS/HR Acetaminophen/ Hydrocodone Bitart 1 tab Q4HP PRN PO 12/20/24 17:30 12/21/24 08:40 1 TAB Magnesium Hydroxide 30 ml DAILYP PRN PO 12/20/24 17:30 12/21/24 12:45 30 ML Sennosides 17.2 mg HS PO 12/21/24 22:00 Lactulose 30 ml TID PO 12/21/24 14:00 Promethazine HCl 12.5 mg Q4HP PRN PO 12/21/24 13:30 Laboratory Results Laboratory Tests 12/21/24 05:58 Chemistry Test 12/21/24 05:58 Calcium Level 9.3 mg/dL (8.7-10.4) Microbiology Microbiology Date/Time Source Procedure Growth Status 12/14/24 11:49 Blood Blood Culture - Final NO GROWTH AFTER 5 DAYS OF INCUBATION. Complete 12/11/24 14:29 Knee Right Gram Stain - Final Complete 12/11/24 14:29 Knee Right Anaerobic Culture - Final Complete 12/11/24 14:29 Knee Right Aerobic Culture - Final Complete Assessment/Plan Assessment/Plan 74-year-old female with a known history of hypertension, hypothyroidism, recent history of right distal femoral replacement arthroplasty who presented to the hospital with a right knee wound dehiscence found to have 1. Right knee wound day since status post I and D with a wound VAC placement 2. Recent history of right distal femoral replacement arthroplasty 3. History of DVT currently on Eliquis 4. Hypertension 5. Hypothyroidism 6. Constipation -physical therapy evaluation and treatment, add more bowel regimen -continue broad-spectrum IV antibiotics follow up Orthopedics recommendations. Plan discussed with: Patient, Son My Orders Orders - FARIBA LOMELI MD Procedure Category Date Status Time Hydrocodone-Acet PHA 12/20/24 In Process 5/325mg Tab ([place] 17:30 Magnesium Hydroxide PHA 12/20/24 In Process Suspension (Milk Of 17:30 Senna Pod Tablet PHA 12/21/24 In Process (Senokot Tablet) 22:00 Lactulose Oral PHA 12/21/24 In Process 14:00 Promethazine Plain PHA 12/21/24 In Process Syrup (Phenergan Plai 13:30 Date of Service: Dec 21, 2024 Billing Provider: FARIBA LOMELI MD Common Visit Codes: [id number] INP/OBS CARE(MOD) FARIBA LOMELI MD Dec 21, 2024 15:58
[2024-12-21] MEDS: PROMETHAZINE HCL 6.25 MG/5 ML ORAL SYRUP PO PRN (18:29)
[2024-12-21] MEDS: SENNA 8.6 MG TAB PO SCH (21:26)
[2024-12-22] VITALS (7 sets, daily range): BP systolic 102–140; BP diastolic 54–79; PULSE 77–87; RESP 15–18; TEMP 97.7–98.9; O2SAT 92–97
[2024-12-22 07:17] LABS: Nucleated Red Blood Cells % 0.1 %
[2024-12-22 07:20] LABS: Hematocrit 31.4 % (36.0-46.0); Hemoglobin 10.4 g/dL (12.2-16.2); Mean Corpuscular Hemoglobin 28.1 pg (28.0-32.0); Mean Corpuscular Volume 84.9 fL (80.0-100.0)
[2024-12-22 07:25] LABS: Anion Gap 8 (5-15); Calcium 9.3 mg/dL (8.7-10.4); Carbon Dioxide 27 mmol/L (20-31); Chloride 106 mmol/L (98-107); Potassium 3.7 mmol/L (3.5-5.1); Sodium 141 mmol/L (136-145)
[2024-12-22 07:32] LABS: BUN/Creatinine Ratio 16.9 (10.0-20.0); Blood Urea Nitrogen 10 mg/dL (9-23); Glucose 84 mg/dL (74-106)
[2024-12-22] MEDS ORDERED: BISACODYL 10 MG RECT SUPP PR PRN (19:45)
[2024-12-22] MEDS: VANCOMYCIN 500mg/100mL 100 ML IV SCH (20:27)
[2024-12-23] VITALS (8 sets, daily range): BP systolic 103–145; BP diastolic 61–84; PULSE 80–95; RESP 16–20; TEMP 97.4–97.9; O2SAT 92–96
--- NOTE | 2024-12-23 18:15 | DVHPN2 ---
Subjective 74-year-old female with a known history of hypertension, hypothyroidism, recent history of right distal femoral replacement arthroplasty on11/10, presented to the hospital with a wound dehiscence status post I and D of the right knee for the right knee wound necrosis with a placement of wound VAC . Patient's son requested rehab placement we will request a social work assistant if insurance approves. Also may request SNF placement. Son was updated again at bedside today regarding current plan of care. Patient has complained of soreness in the tongue. Antibiotics has been discontinued. 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 General Appearance: Alert, Oriented X3 Lungs: Clear to auscultation Cardiovascular: Regular rate, Normal S1, Normal S2 Abdomen: Normal bowel sounds Medications Current Medications Medications Dose Ordered Sig/Tex Route Start Time Stop Time Status Last Admin Dose Admin Ondansetron HCl 4 mg Q4HP PRN IV 12/10/24 19:30 12/23/24 09:34 4 MG Hydrocortisone 1 applic TID PRN TOP 12/11/24 11:30 12/13/24 05:34 1 APPLIC Multivitamins 1 tab DAILY PO 12/12/24 10:00 12/23/24 09:14 1 TAB Ascorbic Acid 1,000 mg DAILY PO 12/12/24 10:00 12/23/24 09:14 1,000 MG Levothyroxine Sodium 125 mcg QAM@0600 PO 12/12/24 06:00 12/23/24 05:35 125 MCG Apixaban 5 mg BID PO 12/12/24 10:00 12/23/24 09:14 5 MG Vancomycin HCl 0 ml @ 0 mls/hr UD IV 12/14/24 16:00 Cancel Cyclobenzaprine HCl 10 mg Q8HPRN PRN PO 12/16/24 16:45 12/17/24 10:21 10 MG Docusate Sodium 100 mg BID PO 12/18/24 13:00 12/22/24 21:03 100 MG Acetaminophen/ Hydrocodone Bitart 1 tab Q4HP PRN PO 12/20/24 17:30 12/23/24 09:14 1 TAB Magnesium Hydroxide 30 ml DAILYP PRN PO 12/20/24 17:30 12/22/24 18:33 30 ML Sennosides 17.2 mg HS PO 12/21/24 22:00 12/22/24 21:04 17.2 MG Lactulose 30 ml TID PO 12/21/24 14:00 12/22/24 21:03 30 ML Promethazine HCl 12.5 mg Q4HP PRN PO 12/21/24 13:30 12/21/24 18:29 12.5 MG Bisacodyl 10 mg QHSP PRN [place] 12/22/24 19:45 Laboratory Results Laboratory Tests 12/22/24 05:17 12/23/24 06:24 Microbiology Microbiology Date/Time Source Procedure Growth Status 12/14/24 11:49 Blood Blood Culture - Final NO GROWTH AFTER 5 DAYS OF INCUBATION. Complete 12/11/24 14:29 Knee Right Gram Stain - Final Complete 12/11/24 14:29 Knee Right Anaerobic Culture - Final Complete 12/11/24 14:29 Knee Right Aerobic Culture - Final Complete Assessment/Plan Assessment/Plan 74-year-old female with a known history of hypertension, hypothyroidism, recent history of right distal femoral replacement arthroplasty who presented to the hospital with a right knee wound dehiscence found to have 1. Right knee wound day since status post I and D with a wound VAC placement 2. Recent history of right distal femoral replacement arthroplasty 3. History of DVT currently on Eliquis 4. Hypertension 5. Hypothyroidism 6. Constipation -physical therapy evaluation and treatment, discontinue IV antibiotics -social service consultation for SNF/rehab placement. Plan discussed with: Patient My Orders Orders - FARIBA LOMELI MD Procedure Category Date Status Time Bisacodyl Suppository PHA 12/22/24 In Process (Dulcolax Supposit 19:45 Date of Service: Dec 23, 2024 Billing Provider: FARIBA LOMELI MD Common Visit Codes: [id number] INP/OBS CARE(MOD) FARIBA LOMELI MD Dec 23, 2024 18:15
[2024-12-23] MEDS ORDERED: VANCOMYCIN 500mg/100mL 100 ML IV SCH (20:00)
[2024-12-24] VITALS (8 sets, daily range): BP systolic 102–121; BP diastolic 48–73; PULSE 80–95; RESP 18–20; TEMP 97.6–98.1; O2SAT 93–98
--- NOTE | 2024-12-24 15:24 | DVHPN2 ---
Subjective 74-year-old female with a known history of hypertension, hypothyroidism, recent history of right distal femoral replacement arthroplasty on11/10, presented to the hospital with a wound dehiscence status post I and D of the right knee for the right knee wound necrosis with a placement of wound VAC . Patient's son requested rehab placement we will request a social worker masters if insurance approves. Also may request SNF placement. Son was updated again at bedside today regarding current plan of care. Patient has complained of soreness in the tongue. Antibiotics has been discontinued. 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 General Appearance: Alert, Oriented X3 Lungs: Clear to auscultation Cardiovascular: Regular rate, Normal S1, Normal S2 Abdomen: Normal bowel sounds Medications Current Medications Medications Dose Ordered Sig/Tex Route Start Time Stop Time Status Last Admin Dose Admin Ondansetron HCl 4 mg Q4HP PRN IV 12/10/24 19:30 12/23/24 09:34 4 MG Hydrocortisone 1 applic TID PRN TOP 12/11/24 11:30 12/13/24 05:34 1 APPLIC Multivitamins 1 tab DAILY PO 12/12/24 10:00 12/24/24 09:20 1 TAB Ascorbic Acid 1,000 mg DAILY PO 12/12/24 10:00 12/24/24 09:20 1,000 MG Levothyroxine Sodium 125 mcg QAM@0600 PO 12/12/24 06:00 12/24/24 05:31 125 MCG Apixaban 5 mg BID PO 12/12/24 10:00 12/24/24 09:19 5 MG Vancomycin HCl 0 ml @ 0 mls/hr UD IV 12/14/24 16:00 Cancel Cyclobenzaprine HCl 10 mg Q8HPRN PRN PO 12/16/24 16:45 12/24/24 09:20 10 MG Acetaminophen/ Hydrocodone Bitart 1 tab Q4HP PRN PO 12/20/24 17:30 12/24/24 09:20 1 TAB Magnesium Hydroxide 30 ml DAILYP PRN PO 12/20/24 17:30 12/22/24 18:33 30 ML Sennosides 17.2 mg HS PO 12/21/24 22:00 12/22/24 21:04 17.2 MG Promethazine HCl 12.5 mg Q4HP PRN PO 12/21/24 13:30 12/21/24 18:29 12.5 MG Bisacodyl 10 mg QHSP PRN [place] 12/22/24 19:45 Laboratory Results Laboratory Tests 12/22/24 05:17 12/23/24 06:24 Microbiology Microbiology Date/Time Source Procedure Growth Status 12/14/24 11:49 Blood Blood Culture - Final NO GROWTH AFTER 5 DAYS OF INCUBATION. Complete 12/11/24 14:29 Knee Right Gram Stain - Final Complete 12/11/24 14:29 Knee Right Anaerobic Culture - Final Complete 12/11/24 14:29 Knee Right Aerobic Culture - Final Complete Assessment/Plan Assessment/Plan 74-year-old female with a known history of hypertension, hypothyroidism, recent history of right distal femoral replacement arthroplasty who presented to the hospital with a right knee wound dehiscence found to have 1. Right knee wound status post I and D with a wound VAC placement 2. Recent history of right distal femoral replacement arthroplasty 3. History of DVT currently on Eliquis 4. Hypertension 5. Hypothyroidism 6. ConstipatioN DISCUSSED WITH THE ORTHOPEDIC, DRAFTER LANDSCAPE DUONG HALL WHO RECOMMENDED FEW MORE DAYS ORTHOPEDICS CANNULA EVALUATE FOR WOUND VAC DISCONTINUATION ON THIS ADMISSION. -physical therapy evaluation and treatment, discontinue IV antibiotics -social service consultation for SNF/rehab placement. Plan discussed with: PatientDevyn Date of Service: Dec 24, 2024 Billing Provider: FARIBA LOMELI MD Common Visit Codes: [id number] INP/OBS CARE(MOD) FARIBA LOMELI MD Dec 24, 2024 15:24
--- NOTE | 2024-12-24 17:23 | DVHPN2 ---
Progress Note Progress Note Ms. Vashti Steve is a post-op status post irrigation and debridement with graft placement of the right knee performed by Dr. Le following wound breakdown after prior distal femur replacement (DFR). She is seen as inpatient today, POD# 14 , Previous NARESH negative pressure wound therapy system in place. Patient denies fever, drainage, or worsening pain. She reports pain is well controlled and denies new symptoms. Pt has walked with physical therapy today She has been eating well now and seen by analyst. No other specific complaints. NO FEVER, CHILLS REPORTED --- Objective: General: Alert, no acute distress Right Knee Wound Exam: NARESH dressing removed New NARESH wound vac applied today to surgical site Incision clean, Some clear fluid noted on lateral margin of the graft, Graft remains intact for most part No erythema, edema, or discharge. or foul odor noted No signs of wound worsening or infection Bracing: Continues in straight-leg brace (SLB) when walking Mobility: Continue working with Physical Therapy for weight-bearing progression and walking with SLB Pain: Well controlled on current regimen Microbiology: Previously Nasal swab MRSA+, continue to be isolated for it , has completed Abx recently --- Assessment: 1. Status post right knee I&D and graft placement stable post-op course 2. Healing surgical wound with NARESH therapy wound appears healthy with no signs of infection 3. History of DVT on anticoagulation, managed by hospitalist per protocol 4. Positive MRSA nasal colonization under treatment, no signs of wound infection 5. Malnutrition risk Improved since last visit --- Plan: NARESH CHANGED TODAY Pictures of Healing knee wound over Right knee and graft reviewed with Dr. Le, Plan is for NARESH to remain for this week and then change to dry dressing on December. Monitor for wound healing and signs of infection Continue straight-leg brace Physical therapy to continue weight-bearing training SCDs to continue for DVT prophylaxis Hospitalist to continue anticoagulation management for history of DVT Hospitalist team to ensure nutrition f/u for wound healing optimization Emphasized importance of protein intake, calorie balance, and supplements (e.g., zinc, vitamin D, if low) Recommend nutritional plan established prior to SNF discharge Reinforced education with patient on nutritional needs and wound healing Patient remains stable. If wound continues to heal well and labs normalize, she will likely be cleared for discharge to SNF in the near future SNF medical team to continue to work on getting a followup with Plastic surgeon so if needed patient can receive skin graft if current graft does not heal ulceration over right knee joint. Orthopedic team remains available for re-evaluation if further issues arise during inpatient stay Patient agree with above plan, if any further questions or concerns advised patient to ask Bedside Nurse to contact Orthopedic team Plan discussed with: Patient, Other (bedside nurse) Plan discussed with: Patient, Son Visit Coding Surgery Date of Service if different f: Dec 24, 2024 Billing Provider: NIKI HALL Surgery Visit Codes: [id number] - INP CONSULT <55 MIN NIKI HALL Dec 24, 2024 17:23
[2024-12-25] VITALS (8 sets, daily range): BP systolic 114–141; BP diastolic 52–68; PULSE 85–92; RESP 17–19; TEMP 97.7–98.5; O2SAT 92–96
--- NOTE | 2024-12-25 17:27 | DVHPN2 ---
Subjective 74-year-old female with a known history of hypertension, hypothyroidism, recent history of right distal femoral replacement arthroplasty on11/10, presented to the hospital with a wound dehiscence status post I and D of the right knee for the right knee wound necrosis with a placement of wound VAC . Patient's son requested rehab placement we will request a group social worker if insurance approves. Also may request SNF placement. Son was updated again at bedside today regarding current plan of care. Patient has complained of soreness in the tongue. Antibiotics has been discontinued. 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 General Appearance: Alert, Oriented X3 Lungs: Clear to auscultation Cardiovascular: Regular rate, Normal S1, Normal S2 Abdomen: Normal bowel sounds Medications Current Medications Medications Dose Ordered Sig/Tex Route Start Time Stop Time Status Last Admin Dose Admin Ondansetron HCl 4 mg Q4HP PRN IV 12/10/24 19:30 12/23/24 09:34 4 MG Hydrocortisone 1 applic TID PRN TOP 12/11/24 11:30 12/13/24 05:34 1 APPLIC Multivitamins 1 tab DAILY PO 12/12/24 10:00 12/25/24 10:12 1 TAB Ascorbic Acid 1,000 mg DAILY PO 12/12/24 10:00 12/25/24 10:12 1,000 MG Levothyroxine Sodium 125 mcg QAM@0600 PO 12/12/24 06:00 12/25/24 05:58 125 MCG Apixaban 5 mg BID PO 12/12/24 10:00 12/25/24 10:12 5 MG Vancomycin HCl 0 ml @ 0 mls/hr UD IV 12/14/24 16:00 Cancel Cyclobenzaprine HCl 10 mg Q8HPRN PRN PO 12/16/24 16:45 12/24/24 21:34 10 MG Acetaminophen/ Hydrocodone Bitart 1 tab Q4HP PRN PO 12/20/24 17:30 12/25/24 04:25 1 TAB Magnesium Hydroxide 30 ml DAILYP PRN PO 12/20/24 17:30 12/22/24 18:33 30 ML Sennosides 17.2 mg HS PO 12/21/24 22:00 12/24/24 21:34 17.2 MG Promethazine HCl 12.5 mg Q4HP PRN PO 12/21/24 13:30 12/21/24 18:29 12.5 MG Bisacodyl 10 mg QHSP PRN [place] 12/22/24 19:45 Laboratory Results Laboratory Tests 12/22/24 05:17 12/23/24 06:24 Microbiology Microbiology Date/Time Source Procedure Growth Status 12/14/24 11:49 Blood Blood Culture - Final NO GROWTH AFTER 5 DAYS OF INCUBATION. Complete 12/11/24 14:29 Knee Right Gram Stain - Final Complete 12/11/24 14:29 Knee Right Anaerobic Culture - Final Complete 12/11/24 14:29 Knee Right Aerobic Culture - Final Complete Assessment/Plan Assessment/Plan 74-year-old female with a known history of hypertension, hypothyroidism, recent history of right distal femoral replacement arthroplasty who presented to the hospital with a right knee wound dehiscence found to have 1. Right knee wound status post I and D with a wound VAC placement 2. Recent history of right distal femoral replacement arthroplasty 3. History of DVT currently on Eliquis 4. Hypertension 5. Hypothyroidism 6. ConstipatioN DISCUSSED WITH THE ORTHOPEDIC, GRANITE INSTALLER DUONG HALL WHO RECOMMENDED FEW MORE DAYS ORTHOPEDICS CANNULA EVALUATE FOR WOUND VAC DISCONTINUATION ON THIS ADMISSION. -physical therapy evaluation and treatment, discontinue IV antibiotics -social service consultation for SNF/rehab placement. Plan discussed with: Patient Date of Service: Dec 26, 2024 Billing Provider: FARIBA LOMELI MD Common Visit Codes: [id number] INP/OBS CARE(MOD) FARIBA LOMELI MD Dec 25, 2024 17:27
[2024-12-26] VITALS (7 sets, daily range): BP systolic 99–123; BP diastolic 53–70; PULSE 85–92; RESP 16–18; TEMP 97.6–98.2; O2SAT 91–95
[2024-12-27 01:00] VITALS: BP 116/64; PULSE 86; RESP 18; TEMP 97.6; O2SAT 92
[2024-12-27 05:00] VITALS: BP 103/62; PULSE 90; RESP 18; TEMP 97.8; O2SAT 93
[2024-12-27 07:27] LABS: Hematocrit 32.5 % (36.0-46.0); Hemoglobin 10.8 g/dL (12.2-16.2); Mean Corpuscular Hemoglobin 27.9 pg (28.0-32.0); Mean Corpuscular Volume 83.7 fL (80.0-100.0); Nucleated Red Blood Cells % 0.0 %
[2024-12-27 07:38] LABS: Anion Gap 9 (5-15); Calcium 8.7 mg/dL (8.7-10.4); Carbon Dioxide 27 mmol/L (20-31); Chloride 104 mmol/L (98-107); Potassium 3.7 mmol/L (3.5-5.1); Sodium 140 mmol/L (136-145)
[2024-12-27 07:44] LABS: BUN/Creatinine Ratio 15.5 (10.0-20.0); Glucose 79 mg/dL (74-106)
[2024-12-27 07:49] LABS: Blood Urea Nitrogen 9 mg/dL (9-23)
[2024-12-27 09:00] VITALS: BP 110/63; PULSE 90; RESP 16; TEMP 98.1; O2SAT 92
[2024-12-27 13:00] VITALS: BP 121/75; PULSE 115; RESP 16; TEMP 98.5; O2SAT 93
[2024-12-27 17:20] VITALS: BP 126/67; PULSE 95; RESP 16; TEMP 98.1; O2SAT 91
--- NOTE | 2024-12-27 18:07 | DVHPN2 ---
Subjective 74-year-old female with a known history of hypertension, hypothyroidism, recent history of right distal femoral replacement arthroplasty on11/10, presented to the hospital with a wound dehiscence status post I and D of the right knee for the right knee wound necrosis with a placement of wound VAC . Patient's son requested rehab placement we will request a social services aide if insurance approves. Also may request SNF placement. Son was updated again at bedside today regarding current plan of care. Patient has complained of soreness in the tongue. Antibiotics has been discontinued. Reviewed: H&P, Labs Changes from previous H/P or p: No Changes Objective Vitals Vital Signs Date Time Temp Pulse Resp B/P (MAP) Pulse Ox O2 Delivery O2 Flow Rate FiO2 12/27/24 17:20 98.1 95 16 126/67 (86) 91 98.1 12/27/24 08:00 Room Air* 0 21 Intake/Output Intake and Output 12/27/24 07:00 Intake Total 722 ml Balance 722 ml Intake Oral 722 ml # Voids 8 Exam HEENT pupils are reactive Neck is supple CV is S1-S2 regular rate and rhythm Respiratory are clear GI positive bowel sound Extremity no pedal edema [employer] no motor deficit General Appearance: Alert, Oriented X3 Lungs: Clear to auscultation Cardiovascular: Regular rate, Normal S1, Normal S2 Abdomen: Normal bowel sounds Medications Current Medications Medications Dose Ordered Sig/Tex Route Start Time Stop Time Status Last Admin Dose Admin Ondansetron HCl 4 mg Q4HP PRN IV 12/10/24 19:30 12/26/24 21:02 4 MG Hydrocortisone 1 applic TID PRN TOP 12/11/24 11:30 12/13/24 05:34 1 APPLIC Multivitamins 1 tab DAILY PO 12/12/24 10:00 12/27/24 09:49 1 TAB Ascorbic Acid 1,000 mg DAILY PO 12/12/24 10:00 12/27/24 09:49 1,000 MG Levothyroxine Sodium 125 mcg QAM@0600 PO 12/12/24 06:00 12/27/24 05:40 125 MCG Apixaban 5 mg BID PO 12/12/24 10:00 12/27/24 09:49 5 MG Vancomycin HCl 0 ml @ 0 mls/hr UD IV 12/14/24 16:00 Cancel Cyclobenzaprine HCl 10 mg Q8HPRN PRN PO 12/16/24 16:45 12/27/24 09:53 10 MG Acetaminophen/ Hydrocodone Bitart 1 tab Q4HP PRN PO 12/20/24 17:30 12/27/24 09:50 1 TAB Magnesium Hydroxide 30 ml DAILYP PRN PO 12/20/24 17:30 12/22/24 18:33 30 ML Sennosides 17.2 mg HS PO 12/21/24 22:00 12/26/24 23:35 17.2 MG Promethazine HCl 12.5 mg Q4HP PRN PO 12/21/24 13:30 12/21/24 18:29 12.5 MG Bisacodyl 10 mg QHSP PRN IA 12/22/24 19:45 Laboratory Results Laboratory Tests 12/27/24 06:08 Chemistry Test 12/27/24 06:08 Calcium Level 8.7 mg/dL (8.7-10.4) Microbiology Microbiology Date/Time Source Procedure Growth Status 12/14/24 11:49 Blood Blood Culture - Final NO GROWTH AFTER 5 DAYS OF INCUBATION. Complete 12/11/24 14:29 Knee Right Gram Stain - Final Complete 12/11/24 14:29 Knee Right Anaerobic Culture - Final Complete 12/11/24 14:29 Knee Right Aerobic Culture - Final Complete Assessment/Plan Assessment/Plan 74-year-old female with a known history of hypertension, hypothyroidism, recent history of right distal femoral replacement arthroplasty who presented to the hospital with a right knee wound dehiscence found to have 1. Right knee wound status post I and D with a wound VAC placement 2. Recent history of right distal femoral replacement arthroplasty 3. History of DVT currently on Eliquis 4. Hypertension 5. Hypothyroidism 6. ConstipatioN DISCUSSED WITH THE ORTHOPEDIC, TRAFFIC WAREHOUSE SUPERVISOR DUONG HALL WHO RECOMMENDED FEW MORE DAYS ORTHOPEDICS CANNULA EVALUATE FOR WOUND VAC DISCONTINUATION ON THIS ADMISSION. -physical therapy evaluation and treatment, orthopedics wants to remove the movement back in house on Sunday. -social service consultation for SNF/rehab placement. Plan discussed with: Patient Date of Service: Dec 27, 2024 Billing Provider: FARIBA LOMELI MD Common Visit Codes: [id number] INP/OBS CARE(MOD) FARIBA LOMELI MD Dec 27, 2024 18:07
[2024-12-27 21:00] VITALS: BP 114/65; PULSE 95; RESP 17; TEMP 97.9; O2SAT 92
[2024-12-28 05:00] VITALS: BP 117/68; PULSE 86; RESP 18; TEMP 97.5; O2SAT 92
[2024-12-28 09:00] VITALS: BP 114/67; PULSE 89; RESP 17; TEMP 98.2; O2SAT 92
[2024-12-28] MEDS ORDERED: ONDANSETRON ODT 4 MG TAB PO PRN (12:45)
[2024-12-28 13:00] VITALS: BP 121/74; PULSE 95; RESP 17; TEMP 97.8; O2SAT 92
--- NOTE | 2024-12-28 16:25 | DVHPN2 ---
Subjective 74-year-old female with a known history of hypertension, hypothyroidism, recent history of right distal femoral replacement arthroplasty on11/10, presented to the hospital with a wound dehiscence status post I and D of the right knee for the right knee wound necrosis with a placement of wound VAC . Patient's son requested rehab placement we will request a licensed master social worker if insurance approves. Also may request SNF placement. Son was updated again at bedside today regarding current plan of care. Patient has complained of soreness in the tongue. Antibiotics has been discontinued. Reviewed: H&P, Labs Changes from previous H/P or p: No Changes Objective Vitals Vital Signs Date Time Temp Pulse Resp B/P (MAP) Pulse Ox O2 Delivery O2 Flow Rate FiO2 12/28/24 13:00 97.8 95 17 121/74 (90) 92 97.8 12/28/24 08:00 Room Air* 0 21 Intake/Output Intake and Output 12/28/24 07:00 Intake Total 1080 ml Balance 1080 ml Intake Oral 1080 ml # Voids 10 Exam HEENT pupils are reactive Neck is supple CV is S1-S2 regular rate and rhythm Respiratory are clear GI positive bowel sound Extremity no pedal edema [facility] RE[employer] no motor deficit General Appearance: Alert, Oriented X3 Lungs: Clear to auscultation Cardiovascular: Regular rate, Normal S1, Normal S2 Abdomen: Normal bowel sounds Medications Current Medications Medications Dose Ordered Sig/Tex Route Start Time Stop Time Status Last Admin Dose Admin Hydrocortisone 1 applic TID PRN TOP 12/11/24 11:30 12/13/24 05:34 1 APPLIC Multivitamins 1 tab DAILY PO 12/12/24 10:00 12/28/24 09:41 1 TAB Ascorbic Acid 1,000 mg DAILY PO 12/12/24 10:00 12/28/24 09:41 1,000 MG Levothyroxine Sodium 125 mcg QAM@0600 PO 12/12/24 06:00 12/28/24 06:07 125 MCG Apixaban 5 mg BID PO 12/12/24 10:00 12/28/24 09:40 5 MG Vancomycin HCl 0 ml @ 0 mls/hr UD IV 12/14/24 16:00 Cancel Cyclobenzaprine HCl 10 mg Q8HPRN PRN PO 12/16/24 16:45 12/27/24 09:53 10 MG Acetaminophen/ Hydrocodone Bitart 1 tab Q4HP PRN PO 12/20/24 17:30 12/28/24 10:30 1 TAB Magnesium Hydroxide 30 ml DAILYP PRN PO 12/20/24 17:30 12/22/24 18:33 30 ML Sennosides 17.2 mg HS PO 12/21/24 22:00 12/27/24 22:02 17.2 MG Promethazine HCl 12.5 mg Q4HP PRN PO 12/21/24 13:30 12/21/24 18:29 12.5 MG Bisacodyl 10 mg QHSP PRN MI 12/22/24 19:45 Ondansetron HCl 4 mg Q8HP PRN PO 12/28/24 12:45 Laboratory Results Laboratory Tests 12/27/24 06:08 Microbiology Microbiology Date/Time Source Procedure Growth Status 12/14/24 11:49 Blood Blood Culture - Final NO GROWTH AFTER 5 DAYS OF INCUBATION. Complete 12/11/24 14:29 Knee Right Gram Stain - Final Complete 12/11/24 14:29 Knee Right Anaerobic Culture - Final Complete 12/11/24 14:29 Knee Right Aerobic Culture - Final Complete Assessment/Plan Assessment/Plan 74-year-old female with a known history of hypertension, hypothyroidism, recent history of right distal femoral replacement arthroplasty who presented to the hospital with a right knee wound dehiscence found to have 1. Right knee wound status post I and D with a wound VAC placement 2. Recent history of right distal femoral replacement arthroplasty 3. History of DVT currently on Eliquis 4. Hypertension 5. Hypothyroidism 6. Constipation, improved DISCUSSED WITH THE ORTHOPEDIC, TOOL AND DIE ENGINEER DUONG HALL WHO RECOMMENDED FEW MORE DAYS ORTHOPEDICS , EVALUATE FOR WOUND VAC DISCONTINUATION ON THIS ADMISSION. -physical therapy evaluation and treatment, orthopedics wants to remove the wound VAC in house on Sunday. -social service consultation for SNF/rehab placement. Plan discussed with: Patient My Orders Orders - FARIBA LOMELI MD Procedure Category Date Status Time Ondansetron Po PHA 12/28/24 In Process (Zofran Po) 12:45 Date of Service: Dec 28, 2024 Billing Provider: FARIBA LOMELI MD Common Visit Codes: [id number] INP/OBS CARE(MOD) FARIBA LOMELI MD Dec 28, 2024 16:25
[2024-12-28 17:00] VITALS: BP 101/64; PULSE 91; RESP 17; TEMP 97.9; O2SAT 94
[2024-12-28 21:00] VITALS: BP 115/84; PULSE 78; RESP 16; TEMP 97.7; O2SAT 98
[2024-12-29 01:00] VITALS: BP 95/50; PULSE 87; RESP 17; TEMP 97.8; O2SAT 95
[2024-12-29 05:00] VITALS: BP 109/51; PULSE 89; RESP 16; TEMP 98.1; O2SAT 95
[2024-12-29 08:21] VITALS: PULSE 95; RESP 17; O2SAT 90
[2024-12-29 09:00] VITALS: BP 113/58; PULSE 95; RESP 17; TEMP 97.3; O2SAT 90
[2024-12-29 13:00] VITALS: BP 122/63; PULSE 91; RESP 18; TEMP 97.8; O2SAT 93
--- NOTE | 2024-12-29 14:36 | DVHDS2 ---
Discharge Summary Date of Admission Dec 10, 2024 at 19:18 Date of Discharge: Dec 29, 2024 Labs/Diagnostic Data: Laboratory Results Test 12/27/24 06:08 12/21/24 05:58 12/19/24 05:24 12/17/24 13:10 White Blood Count 6.9 10^3/uL (4.4-10.8) Red Blood Count 3.88 10^6/uL (4.0-5.20) Hemoglobin 10.8 g/dL (12.2-16.2) Hematocrit 32.5 % (36.0-46.0) Mean Corpuscular Volume 83.7 fL (80.0-100.0) Mean Corpuscular Hemoglobin 27.9 pg (28.0-32.0) Mean Corpuscular Hemoglobin Concent 33.4 g/dL (32.0-36.0) Red Cell Distribution Width 17.8 % (11.8-14.3) Platelet Count 548 10^3/uL (140-450) Mean Platelet Volume 7.4 fL (6.9-10.8) Neutrophils (%) (Auto) 62.3 % (37.0-80.0) Lymphocytes (%) (Auto) 21.1 % (10.0-50.0) Monocytes (%) (Auto) 8.4 % (0.0-12.0) Eosinophils (%) (Auto) 5.8 % (0.0-7.0) Basophils (%) (Auto) 2.4 % (0.0-2.0) Neutrophils # (Auto) 4.3 10 ^3/uL (1.6-8.6) Lymphocytes # (Auto) 1.5 10 ^3/uL (0.4-5.4) Monocytes # (Auto) 0.6 10 ^3/uL (0-1.3) Eosinophils # (Auto) 0.4 10 ^3/uL (0-0.8) Basophils # (Auto) 0.2 10 ^3/uL (0-0.2) Nucleated Red Blood Cells 0.0 % Sodium Level 140 mmol/L (136-145) Potassium Level 3.7 mmol/L (3.5-5.1) Chloride Level 104 mmol/L (98-107) Carbon Dioxide Level 27 mmol/L (20-31) Anion Gap 9 (5-15) Blood Urea Nitrogen 9 mg/dL (9-23) Creatinine 0.58 mg/dL (0.550-1.02) Glomerular Filtration Rate Calc 96 mL/min (>90) BUN/Creatinine Ratio 15.5 (10.0-20.0) Serum Glucose 79 mg/dL (74-106) Calcium Level 8.7 mg/dL (8.7-10.4) Vancomycin Level Trough 15.2 ug/mL (5-10) Random Vancomycin Level 19.4 ug/mL (5-10) Zinc Level 69 ug/dL (44-115) Test 12/17/24 04:54 12/12/24 06:50 12/11/24 06:00 12/10/24 15:28 Erythrocyte Sedimentation Rate 108 mm/hr (0-20) Albumin 3.3 g/dL (3.2-4.8) Vitamin D 25-Hydroxy 24.4 ng/mL (30.0-100) Thyroid Stimulating Hormone (TSH) 2.32 uIU/mL (0.55-4.78) Hemoglobin A1c 5.1 % A1C (<5.7) Prealbumin 6.2 md/dL (10.0-40.0) Prothrombin Time 13.5 sec (9.3-11.8) Prothrombin Time INR 1.31 (0.9-1.15) Activated Partial Thromboplast Time 35.6 SEC (24.5-34.5) Lactic Acid Level 1.1 mmol/L (0.4-2.0) Other Laboratory Tests 12/27/24 06:08 Brief Hx & Hospital Course: 74-year-old female with a known history of hypertension, hypothyroidism, recent history of right distal femoral replacement arthroplasty who presented to the hospital with a right knee wound dehiscence found to have right knee wound status post I and D with a wound VAC placement. Patient has a has a recent history of right distal femur replacement arthroplasty. Patient had wound VAC placed by the Orthopedics. Patient's wound VAC was changed later on. Patient has a history of DVT currently on Eliquis. Patient qualified for longterm facility. Patient's son and other family member was updated at bedside. They are okay to be discharged her to longterm facility for physical therapy and pain management. Follow up with the PCP and Orthopedics upon discharge. Condition at Discharge: Stable Final Diagnosis/Problems List 74-year-old female with a known history of hypertension, hypothyroidism, recent history of right distal femoral replacement arthroplasty who presented to the hospital with a right knee wound dehiscence found to have 1. Right knee wound status post I and D with a wound VAC placement 2. Recent history of right distal femoral replacement arthroplasty 3. History of DVT currently on Eliquis 4. Hypertension 5. Hypothyroidism 6. Constipation, improved Discharge Disposition: Snf Facility SNF Discharge Will this Physician continue t: No Discharge Instruct/Medications Diet: Cardiac 2g Na,low cholest Activity: See Comment Activity comment: As tolerated with physical therapy and occupational therapy. Follow Up/Referral: Follow up with the PCP and Orthopedics in 1-2 weeks upon discharge. Medications: As reconciled Scheduled Acetaminophen (Tylenol), 650 MG VA BID, (Reported) Alendronate Sodium (Alendronate Sodium), 70 MG PO Q7D, (Reported) Apixaban Base (Eliquis), 10 MG PO BID, (Reported) Hydrochlorothiazide (Hydrochlorothiazide), 1 TAB PO DAILY, (Reported) Hydrocortisone Base (Hydrocortisone), 5 MG PO BID, (Reported) Levothyroxine Sodium (Levothyroxine Sodium), 125 MCG PO QAM, (Reported) Lisinopril (Lisinopril), 20 MG PO DAILY, (Reported) Scheduled PRN Albuterol Sulfate (Albuterol Sulfate Hfa), 108 MCG IN PRN PRN for SHORTNESS OF BREATH, (Reported) Hydrocodone-Acetaminophen (Hydrocodone/Acetaminophen 10-325 mg), 1 TAB PO BID PRN for PAIN SCALE 7 THRU 10, (Reported) Discontinued Medications Naproxen Sodium (Aleve Arthritis), 220 MG PO DAILYP PRN for PAIN SCALE 4-6 OR TEMP>100.4, (Reported) Discharge Statement: "Patient was advised to return to the ER or call 911 if any headaches, dizziness, shortness of breath, chest pain, abdominal pain, bleeding, fevers, or worsening of medical condition. Patient was counseled about treatment plan, medications, possible side effects, patientverbalized understanding. All questions were answered to the best of my ability. This discharge took greater then 30 minutes in planning, reviewing documentation, counseling the patient, and discussing with other team members." ASSESSMENT ASSESSMENT Assessment 74-year-old female with a known history of hypertension, hypothyroidism, recent history of right distal femoral replacement arthroplasty who presented to the hospital with a right knee wound dehiscence found to have 1. Right knee wound status post I and D with a wound VAC placement 2. Recent history of right distal femoral replacement arthroplasty 3. History of DVT currently on Eliquis 4. Hypertension 5. Hypothyroidism 6. Constipation, improved Date of Service: Dec 29, 2024 Billing Provider: FARIBA LOMELI MD Common Visit Codes: 25110-ZAV/OBS DISCH DAY >30min FARIBA LOMELI MD Dec 29, 2024 14:36
[2024-12-29 16:48] VITALS: BP 121/81; PULSE 88; RESP 17; TEMP 97.5; O2SAT 91
== END 2024-12-29 18:46 | DRG 903 ==
LOC: EDBD 14:17 → ER 14:17 → OVERFLOW 19:18 → WEST WING 19:21
PROVIDERS: ADMIT Internal Medicine; ATTEND Internal Medicine
PROC: 0JBN0ZZ Excision of Right Lower Leg Subcutaneous Tissue and Fascia, Open Approach (ICD-10-PCS; principal; 2024-12-11 14:07)
DX: T81.31XA Disruption of external operation (surgical) wound, not elsewhere classified, initial encounter (principal); S82.301A Unspecified fracture of lower end of right tibia, initial encounter for closed fracture; E66.01 Morbid (severe) obesity due to excess calories; I10 Essential (primary) hypertension; M47.816 Spondylosis without myelopathy or radiculopathy, lumbar region; E03.9 Hypothyroidism, unspecified; K59.00 Constipation, unspecified; Z86.718 Personal history of other venous thrombosis and embolism; Z88.8 Allergy status to other drugs, medicaments and biological substances; Z79.899 Other long term (current) drug therapy; S82.831G Other fracture of upper and lower end of right fibula, subsequent encounter for closed fracture with delayed healing; X58.XXXD Exposure to other specified factors, subsequent encounter; Z79.01 Long term (current) use of anticoagulants; Y84.8 Other medical procedures as the cause of abnormal reaction of the patient, or of later complication, without mention of misadventure at the time of the procedure; Y92.89 Other specified places as the place of occurrence of the external cause
CPT/HCPCS: 36415; 70450; 70551; 71045; 72131; 73501; 73560; 73590; 80048; 80202; 82040; 82306; 82565; 83036; 83605; 84443; 84630; 85025; 85610; 85652; 85730; 86850; 86900; 86901; 87040; 87070; 87075; 87081; 87205; 93005; 97110; 97116; 97530; 99291; G0378; J2003; J2250; J2405; J2704; J3490; Q0162

== ENCOUNTER 2024-12-31 20:22 | Emergency (ER) | payer MEDICARE ==
[~2024-12-31] VITALS: Ht 152.4 cm; Wt 100.0 kg
[~2024-12-31 20:22] MED LIST changes: +ACE650RS PR; +ALEN70TA74 PO; +APIX5TAB PO; -NAPR-759 PO
[2024-12-31 20:28] VITALS: BP 124/69; PULSE 94; RESP 16; TEMP 98.6; O2SAT 98
[2024-12-31 21:37] LABS: Hematocrit 32.1 % (36.0-46.0); Hemoglobin 10.5 g/dL (12.2-16.2); Mean Corpuscular Hemoglobin 27.4 pg (28.0-32.0); Mean Corpuscular Volume 84.1 fL (80.0-100.0); Nucleated Red Blood Cells % 0.2 %
[2024-12-31 21:56] LABS: Chloride 103 mmol/L (98-107); Potassium 3.7 mmol/L (3.5-5.1); Sodium 138 mmol/L (136-145)
[2024-12-31 21:57] LABS: Anion Gap 8 (5-15); Carbon Dioxide 27 mmol/L (20-31)
[2024-12-31 22:03] LABS: BUN/Creatinine Ratio 19.4 (10.0-20.0); Blood Urea Nitrogen 12 mg/dL (9-23)
[2024-12-31 22:08] LABS: Calcium 8.6 mg/dL (8.7-10.4); Glucose 110 mg/dL (74-106)
--- NOTE | 2024-12-31 23:53 | ED.PDOC ---
History of Present Illness HPI Comments 74-year-old female with past medical history of hypertension, hypothyroidism, right distal femoral replacement arthroplasty proximally 2 months ago then complicated by right knee wound dehiscence (s/p wound VAC, readmission for IV vancomycin), right lower extremity DVT (on anticoagulation) [facility] for concerns of wound infection. Patient's initial surgery was 2 months ago. He then started to have breakdown of the wound and appeared infected. She was admitted here from 12/10 to 12/29 during which time she received IV vancomycin for MRSA that grew out from the wound. Patient discharged 2 days ago back to her rehab facility. They were doing wound care today and they saw an area that appeared red which concerned them and they recommended the patient come back into the hospital for re-evaluation. Patient denies any fevers. Not having any abnormal or foul-smelling drainage from the wound. States that she is mostly bed-bound when she was hospitalized. However, today was doing physical therapy and walking around more. Reports some increase right lower extremity edema, however, denies any increased pain. Reports compliance with her blood thinner. Denied any current chest pain, shortness of breath. Chief Complaint: Wound Check Time Seen by MD: 20:29 Allergies: Coded Allergies: Baclofen (Verified Allergy, Unknown, 04/09/21) Metformin (Verified Allergy, Unknown, 04/09/21) Home Meds Reported Medications Apixaban Base (ELIQUIS) 5 Mg Tab, 10 MG PO BID for 7 Days, TAB 10MG PO BID 12/11/24 Acetaminophen (Tylenol) 650 Mg Rc, 650 MG IN BID, SUPP.RECT 12/11/24 Alendronate Sodium (Alendronate Sodium) 70 Mg Tab, 70 MG PO Q7D, TAB 12/11/24 Hydrocortisone Base (Hydrocortisone) 5 Mg Tab, 5 MG PO BID, TAB 3 pills in the morning and 3 pills at night 04/10/21 Albuterol Sulfate (Albuterol Sulfate Hfa) 108 Mcg/Act Aer, 108 MCG IN PRN PRN for SHORTNESS OF BREATH, AER 04/10/21 Hydrocodone-Acetaminophen (Hydrocodone/Acetaminophen 10-325 mg) 1 Tab Tab, 1 TAB PO BID PRN for PAIN SCALE 7 THRU 10, TAB 04/10/21 Levothyroxine Sodium (Levothyroxine Sodium) 125 Mcg Tab, 125 MCG PO QAM for 30 Days, MCG 04/10/21 Hydrochlorothiazide (Hydrochlorothiazide) 25 Mg Tab, 1 TAB PO DAILY, #30 TAB 5 Refills 04/10/21 Lisinopril (Lisinopril) 20 Mg Tab, 20 MG PO DAILY for 30 Days, MG 04/10/21 Discontinued Reported Medications Naproxen Sodium (ALEVE ARTHRITIS) 220 Mg Tab, 220 MG PO DAILYP PRN for PAIN SCALE 4-6 OR TEMP>100.4, TAB 04/10/21 Information Source: Patient, Relative (Child) Mode of Arrival: EMS Severity: Mild Timing: Hours Past Medical History PAST MEDICAL HISTORY: HTN, Thyroid Surgical History (Other): Distal femur replacement arthroplasty WOOD CARVER HAND History: No Pertinent WOOD CARVER HAND History Family History Family History: Reviewed,noncontributory to illness, No family hx of Cancer, No family hx of DM, No family hx of Heart geovany, No family hx of HTN, No family hx ofKidney geovany, No family hx of Liver geovany, No family hx of Lung geovany, No family hx of Stroke Social History Smoker: Non-Smoker Alcohol: Denies ETOH Use Drugs: Denies Drug Use Lives In: Home Constitutional: denies: chills, diaphoresis, fatigue, fever, malaise, sweats, weakness, others EENTM: denies: blurred vision, double vision, ear bleeding, ear discharge, ear drainage, ear pain, ear ringing, eye pain, eye redness, hearing loss, mouth pain, mouth swelling, nasal discharge, nose bleeding, nose congestion, nose pain, photophobia, tearing, throat pain, throat swelling, voice changes, others Respiratory: denies: cough, hemoptysis, orthopnea, SOB at rest, shortness of breath, SOB with excertion, stridor, wheezing, others Cardiovascular: denies: chest pain, dizzy spells, diaphoresis, Dyspnea on exertion, edema, irregular heart beat, left arm pain, lightheadedness, palpitations, PND, syncope, others Gastrointestinal: denies: abdomen distended, abdominal pain, blood streaked bowels, constipated, diarrhea, dysphagia, difficulty swallowing, hematemesis, melena, nausea, poor appetite, poor fluid intake, rectal bleeding, rectal pain, vomiting, others Genitourinary: denies: abnormal vagina bleeding, burning, dyspareunia, dysuria, flank pain, frequency, hematuria, incontinence, pain, , vagina discharge, urgency, others Neurological: denies: dizziness, fainting, headache, left sided numbness, left sided weakness, numbness, paresthesia, pre-existing deficit, right sided numbness, right sided weakness, seizure, speech problems, tingling, tremors, weakness, others Musculoskeletal: reports: others (peripheral edema of RLE) Integumetry: reports: wounds (right knee wound, no drainage) Allergic/Immunocompromised: denies: Difficulty Healing, Frequent Infections, Hives, Itching, others Hematologic/Lymphatic: reports: blood clots Endocrine: denies: excessive hunger, excessive sweating, excessive thirst, excessive urination, flushing, intolerance to cold, intolerance to heat, unexplained weight gain, unexplained weight loss, others Physical Exam General Appearance: Normal HEENT: NOT DONE Neck: NOT DONE Respiratory: NOT DONE Cardiovascular: Normal Peripheral Pulses, Regular Rate/Rhythm, Other (Right lower extremity peripheral edema) Breast Exam: Deferred Gastrointestinal: Non Tender Genitalia: Deferred Pelvic: Deferred Rectal: Deferred Extremities: Leg edema, Other (RLE: Patient has central area of scabbing along the center of the knee (where prior wound VAC was placed)) Neurologic: Alert, label press operator II-XII nml as Tested, No Motor Deficits, No Sensory Deficits Cerebellar Function: Normal Reflexes: NOT DONE Skin: Wounds (wound dehiscence from prior surgical scar) Lymphatic: NOT DONE Was a procedure done? Was a procedure done?: No Differential Dx Considerations may include: Wound infection vs healing wound vs avulsion of prior scab vs dependent edema X-Ray, Labs, Meds, VS Vital Signs Date Time Temp Pulse Resp B/P (MAP) Pulse Ox O2 Delivery O2 Flow Rate FiO2 12/31/24 20:28 98.6 94 16 124/69 98 98.6 Lab Test 12/31/24 21:08 Range/Units White Blood Count 6.5 4.4-10.8 10^3/uL Red Blood Count 3.82 L 4.0-5.20 10^6/uL Hemoglobin 10.5 L 12.2-16.2 g/dL Hematocrit 32.1 L 36.0-46.0 % Mean Corpuscular Volume 84.1 80.0-100.0 fL Mean Corpuscular Hemoglobin 27.4 L 28.0-32.0 pg Mean Corpuscular Hemoglobin Concent 32.5 32.0-36.0 g/dL Red Cell Distribution Width 18.0 H 11.8-14.3 % Platelet Count 468 H 140-450 10^3/uL Mean Platelet Volume 7.4 6.9-10.8 fL Neutrophils (%) (Auto) 66.2 37.0-80.0 % Lymphocytes (%) (Auto) 21.2 10.0-50.0 % Monocytes (%) (Auto) 8.1 0.0-12.0 % Eosinophils (%) (Auto) 3.2 0.0-7.0 % Basophils (%) (Auto) 1.3 0.0-2.0 % Neutrophils # (Auto) 4.3 1.6-8.6 10 ^3/uL Lymphocytes # (Auto) 1.4 0.4-5.4 10 ^3/uL Monocytes # (Auto) 0.5 0-1.3 10 ^3/uL Eosinophils # (Auto) 0.2 0-0.8 10 ^3/uL Basophils # (Auto) 0.1 0-0.2 10 ^3/uL Nucleated Red Blood Cells 0.2 % Erythrocyte Sedimentation Rate 88 H 0-20 mm/hr Sodium Level 138 136-145 mmol/L Potassium Level 3.7 3.5-5.1 mmol/L Chloride Level 103 98-107 mmol/L Carbon Dioxide Level 27 20-31 mmol/L Anion Gap 8 5-15 Blood Urea Nitrogen 12 9-23 mg/dL Creatinine 0.62 0.550-1.02 mg/dL Glomerular Filtration Rate Calc 95 >90 mL/min BUN/Creatinine Ratio 19.4 10.0-20.0 Serum Glucose 110 H 74-106 mg/dL Lactic Acid Level 1.0 0.4-2.0 mmol/L Calcium Level 8.6 L 8.7-10.4 mg/dL C-Reactive Protein High Sensitivity 7.05 H <1.0 mg/dL Time of 1ST Reevaluation: 23:45 (Patient and her 2 children are informed of normal workup. Have been provided reassurance and are agreeable to be discharged back to her rehab.) Reevaluation 1ST: Improved Patient Education/Counseling: Diagnosis, Treatment, Need For Follow Up Family Education/Counseling: Diagnosis, Treatment, Need For Follow Up SEPSIS Sepsis Screen Date sepsis recognized/suspect: Dec 31, 2024 Time Sepsis recognized/suspect: 2027 Recent Procedure: Yes (SKIN GRAFT RIGHT KNEE) On Antibiotic Therapy: No Respiratory Rate >20: No Heart Rate >90: Yes Temp<36 C (96.8 F) or >38.3 C: No SBP <90 or MAP <65 mmHG: No New Acute Mental Status Change: No Is the patient on CPAP, BIPAP,: No Physician Orders Blood Culture (12/31/24 20:49) Vital Signs Date Time Temp Pulse Resp B/P (MAP) Pulse Ox O2 Delivery O2 Flow Rate FiO2 12/31/24 20:28 98.6 94 16 124/69 98 98.6 Laboratory Tests Test 12/31/24 21:08 Lactic Acid Level 1.0 mmol/L (0.4-2.0) White Blood Count 6.5 10^3/uL (4.4-10.8) Departure 1 Departure Time of Disposition: 23:49 (74-year-old female with past medical history of hypertension, hypothyroidism, right distal femoral replacement arthroplasty proximally 2 months ago then complicated by right knee wound dehiscence (s/p wound VAC, readmission for IV vancomycin), right lower extremity DVT (on anticoagulation) sent in from her rehab facility for concerns of wound infection. Upon my initial assessment of the patient's wound appears to be healing appropriately. She arrives with no fevers, denies any fevers at her rehab facility. She has no surrounding erythema, warmth, abnormal drainage to suggest reinfection of the wound. Because the patient was mostly bed-bound and today started doing physical therapy with increased mobilization suspect that the previously formed scab may have becom dislodged exposing underlying raw, healing tissue. Patient also with what appears to be dependent edema likely because she is now ambulatory. She is not having any increased pain, reports compliance with her blood thinner, now concerning for breakthrough DVT. Repeat labs were obtained for further evaluation. Patient today has normal white blood cell count. His metabolic panel with no evidence of acute electrolyte a bnormalities or acute kidney insufficiency. Patient has a normal lactic acid today. Inflammatory markers are stably downtrending comparison to her last labs obtained while she was admitted to the hospital for her infection. Patient and patient has 2 children have been informed of today's workup. They have been provided reassurance in being informed that today's workup and physical exam findings are not concerning for reinfection. Patient will be discharged back to her subacute rehab. She already has upcoming follow-up with her orthopedic surgeon.) Impression: Primary Impression: Wound dehiscence, surgical Additional Impressions: Healing scar Dependent edema Disposition: 03 RETIREMENT FACILITY Condition: Stable Additional Instructions: Few vital signs are within normal limits. Your white blood cell count today is within normal limits. You had a normal lactic acid. Your inflammatory markers are all down trending/improving in comparison to your labs from when you were admitted to the hospital. Because you are now beginning to ambulate more it is likely that a previously formed scab became dislodged exposing underlying new/healing tissue. There is no foul-smelling drainage, no pus-like drainage, no surrounding warmth or increased redness to suggest reinfection of the wound. Please continue with your outpatient physical therapy. Follow up with their orthopedic surgeon as scheduled for your follow-up related to your surgery and wound dehiscence. Discharged With: Self, Relative (Children) Critical Care Note Critical Care Time?: No Stability Stability form required: No FORTINO GAMBLE MD Dec 31, 2024 23:53
== END 2025-01-01 02:05 ==
LOC: EDBD 20:22 → ER 20:22
DX: T81.31XA Disruption of external operation (surgical) wound, not elsewhere classified, initial encounter (principal); L90.5 Scar conditions and fibrosis of skin; R60.9 Edema, unspecified; I10 Essential (primary) hypertension; E03.9 Hypothyroidism, unspecified; Z79.899 Other long term (current) drug therapy; Z86.2 Personal history of diseases of the blood and blood-forming organs and certain disorders involving the immune mechanism
CPT/HCPCS: 36415; 80048; 83605; 85025; 85652; 86141; 87040

== ENCOUNTER 2025-01-06 13:51 | Inpatient (IN) | payer MEDICARE ==
[~2025-01-06] VITALS: Ht 152.4 cm; Wt 97.6 kg
[2025-01-06 19:30] VITALS: PULSE 72; RESP 16
[2025-01-06 20:00] VITALS: RESP 16
[2025-01-06 21:00] VITALS: BP 123/70; PULSE 72; RESP 15; TEMP 97.3; O2SAT 92
[2025-01-06] MEDS ORDERED: ALBUTEROL SULF 2.5 MG/0.5ML(0.5%) NEB SOLN NEB PRN (22:30)
--- NOTE | 2025-01-06 22:38 | DVHHP2 ---
History of Present Illness Reason for Visit: Nonhealing wound History of Present Illness 74-year-old female being admitted as a direct admit from subacute rehab facility. Patient sent by orthopedic surgeon for evaluation of right knee nonhealing wound. Patient is status post right distal femur replacement arthroplasty last month. Patient denies fever or chills. No pain. No other acute symptoms Past Medical History Hypertension, DVT, thyroid Past Surgical History Right knee surgery Family History Noncontributory Smoke: No ALCOHOL: none Drugs: None Lives: Other (Rehab facility) Review of Systems Review of Systems Review of systems are currently negative otherwise addressed in HPI. Allergies: Coded Allergies: Baclofen (Verified Allergy, Unknown, 04/09/21) Metformin (Verified Allergy, Unknown, 04/09/21) Medications Current Medications Medications Dose Ordered Sig/Tex Route Start Time Stop Time Status Last Admin Dose Admin Acetaminophen/ Hydrocodone Bitart 1 tab Q4HP PRN PO 01/06/25 22:30 UNV Ondansetron HCl 4 mg Q4HP PRN IV 01/06/25 22:30 UNV Acetaminophen 650 mg Q6HP PRN PO 01/06/25 22:30 UNV Albuterol 2.5 mg Q6HPRN PRN NEB 01/06/25 22:30 UNV Levothyroxine Sodium 125 mcg QAM@0600 PO 01/07/25 06:00 UNV Lisinopril 20 mg DAILY PO 01/07/25 10:00 UNV Apixaban 5 mg BID PO 01/07/25 10:00 UNV Exam Vital Signs Vital Signs Date Time Temp Pulse Resp B/P (MAP) Pulse Ox O2 Delivery O2 Flow Rate FiO2 01/06/25 21:00 97.3 72 15 123/70 (87) 92 97.3 Exam Gen: 74-year-old female in no apparent distress Skin: Warm, dry, normal color and texture, no rash. HEENT: Normocephalic atraumatic, mucous membranes moist and pink. Neck: Cervical and supraclavicular nodes normal without enlargement, trachea is midline, thyroid gland is normal without masses. Pulmonary: Clear to auscultation and percussion bilaterally. Cardiac: Regular rate and rhythm. No murmur Abdomen: Soft, nontender, nondistended, bowel sounds present all 4 quadrants, no guarding, no rigidity, no organomegaly. Extremities: No cyanosis, clubbing, right lower extremity wound covered with an occlusive dressing Neuro: Cranial nerves II through XII grossly intact, normal affect and speech, no focal motor deficits. SEPSIS Sepsis Screen Physician Orders Complete Blood Count (01/07/25 04:00) Basic Metabolic Panel (01/07/25 04:00) PTPTT (01/07/25 04:00) Admit (01/06/25 22:24) Hydrocodone-Acet 5/325mg Tab (Mchenry 5/32 (01/06/25 22:30) Ondansetron Hcl (Zofran) (01/06/25 22:30) Cardiac Diet-2gna,Lofat,Lochol (01/07/25 Breakfast) Condition: Stable (01/06/25 22:24) Acetaminophen Tablet (Tylenol Tablet) (01/06/25 22:30) Bedrest With Bathroom Privileg (01/06/25 22:24) *Consult Dr. Manjit Le (01/06/25 22:24) Albuterol Medneb (Ventolin Medneb) (01/06/25 22:30) Levothyroxine Tablet (Synthroid Tablet) (01/07/25 06:00) Lisinopril Tablet (Zestril Tablet) (01/07/25 10:00) Apixaban (Eliquis) (01/07/25 10:00) Pt Request For Service (01/06/25 22:30) Vital Signs Date Time Temp Pulse Resp B/P (MAP) Pulse Ox O2 Delivery O2 Flow Rate FiO2 01/06/25 21:00 97.3 72 15 123/70 (87) 92 97.3 Assessment/Plan Assessment/Plan Assessment Right lower extremity nonhealing wounds Hypertension Plan Admit the patient to [facility] to the hospitalist Orthopedic consultation Pain management Resume home medications Continue treatment per orders. Plan discussed with: Patient My Orders Orders - ALVA SHEFFIELD Procedure Category Date Status Time Complete Blood Count LAB 01/07/25 Verified 04:00 Basic Metabolic Panel LAB 01/07/25 Verified 04:00 PTPTT LAB 01/07/25 Verified 04:00 Admit ADMIT 01/06/25 Transmitted 22:24 Hydrocodone-Acet PHA 01/06/25 Logged 5/325mg Tab (Mchenry 22:30 Ondansetron Hcl PHA 01/06/25 Logged (Zofran) 22:30 Cardiac DIET 01/07/25 Transmitted Diet-2gna,Lofat,Lochol Breakfast Condition: Stable MATILDA 01/06/25 In Process 22:24 Acetaminophen Tablet PHA 01/06/25 Logged (Tylenol Tablet) 22:30 Bedrest With Bathroom MATILDA 01/06/25 In Process Privileg 22:24 *Consult Dr. Saravia CONS 01/06/25 Transmitted Rey 22:24 Albuterol Medneb PHA 01/06/25 Logged (Ventolin Medneb) 22:30 Levothyroxine Tablet PHA 01/07/25 Logged (Synthroid Tablet) 06:00 Lisinopril Tablet PHA 01/07/25 Logged (Zestril Tablet) 10:00 Apixaban (Eliquis) PHA 01/07/25 Logged 10:00 Pt Request For Service PT 01/06/25 Logged 22:30 Date of Service: Jan 06, 2025 Billing Provider: ALVA SHEFFIELD Common Visit Codes: [id number] INP/OBS CARE (MOD) ALVA SHEFFIELD Jan 06, 2025 22:38
[2025-01-06 23:00] VITALS: BP 123/70; PULSE 89; RESP 18; TEMP 97.3; O2SAT 94
[2025-01-07] VITALS (10 sets, daily range): BP systolic 99–118; BP diastolic 61–68; PULSE 89–94; RESP 14–18; TEMP 97.5–98.1; O2SAT 91–97
[2025-01-07] MEDS: HYDROcodone-ACET 5/325MG TAB PO PRN (04:46)
[2025-01-07] MEDS: LEVOTHYROXINE SODIUM 50 MCG TAB PO SCH (05:53)
[2025-01-07 06:05] LABS: Hematocrit 33.2 % (36.0-46.0); Hemoglobin 10.9 g/dL (12.2-16.2); Mean Corpuscular Hemoglobin 27.2 pg (28.0-32.0); Mean Corpuscular Volume 82.4 fL (80.0-100.0); Nucleated Red Blood Cells % 0.1 %
[2025-01-07 06:24] LABS: Chloride 103 mmol/L (98-107); Potassium 3.6 mmol/L (3.5-5.1); Sodium 141 mmol/L (136-145)
[2025-01-07 06:25] LABS: Anion Gap 12 (5-15); Carbon Dioxide 26 mmol/L (20-31)
[2025-01-07 06:29] LABS: Calcium 8.6 mg/dL (8.7-10.4)
[2025-01-07 06:30] LABS: BUN/Creatinine Ratio 22.2 (10.0-20.0); Blood Urea Nitrogen 14 mg/dL (9-23); Glucose 86 mg/dL (74-106)
[2025-01-07 09:45] LABS: INR 1.22 (0.9-1.15); Partial Thromboplastin Time 32.5 SEC (24.5-34.5); Prothrombin Time 12.7 sec (9.3-11.8)
[2025-01-07] MEDS: LISINOPRIL 20 MG TAB PO SCH (11:22)
[2025-01-07] MEDS: APIXABAN 5 MG TAB PO SCH (11:22)
--- NOTE | 2025-01-07 13:46 | DVHPN2 ---
Reviewed: Care Plan, H&P, Labs, Medications, Previous Orders Changes from previous H/P or p: No Changes Objective Vitals Vital Signs Date Time Temp Pulse Resp B/P (MAP) Pulse Ox O2 Delivery O2 Flow Rate FiO2 01/07/25 11:22 112/57 01/07/25 10:00 95 Room Air 01/07/25 10:00 0 21 01/07/25 05:00 97.5 94 14 97.5 Intake/Output Intake and Output 01/07/25 07:00 Intake Total 200 ml Balance 200 ml Intake Oral 200 ml # Voids 1 Medications Current Medications Medications Dose Ordered Sig/Tex Route Start Time Stop Time Status Last Admin Dose Admin Acetaminophen/ Hydrocodone Bitart 1 tab Q4HP PRN PO 01/06/25 22:30 01/07/25 04:46 1 TAB Ondansetron HCl 4 mg Q4HP PRN IV 01/06/25 22:30 Acetaminophen 650 mg Q6HP PRN PO 01/06/25 22:30 Albuterol 2.5 mg Q6HPRN PRN NEB 01/06/25 22:30 Levothyroxine Sodium 125 mcg QAM@0600 PO 01/07/25 06:00 01/07/25 05:53 125 MCG Lisinopril 20 mg DAILY PO 01/07/25 10:00 01/07/25 11:22 20 MG Apixaban 5 mg BID PO 01/07/25 10:00 01/07/25 11:22 5 MG Laboratory Results Laboratory Tests 01/07/25 05:43 Chemistry Test 01/07/25 05:43 Calcium Level 8.6 mg/dL (8.7-10.4) L Coagulation Test 01/07/25 09:00 Prothrombin Time 12.7 sec (9.3-11.8) H Prothrombin Time INR 1.22 (0.9-1.15) H Activated Partial Thromboplast Time 32.5 SEC (24.5-34.5) Labs and/or images reviewed: Labs reviewed by me, Image(s) reviewed by me Assessment/Plan Assessment/Plan Nonhealing right knee wound ortho consult Status post right knee arthroplasty Hypertension History of DVT on Eliquis Hypothyroidism: Synthroid Plan discussed with: Patient Date of Service: Jan 07, 2025 Billing Provider: PIYUSH JESUS MD Common Visit Codes: [id number] INP/OBS CARE(HIGH) PIYUSH JESUS MD Jan 07, 2025 13:46
--- NOTE | 2025-01-07 18:37 | DVHINCON2 ---
Consult Note Consult Consult Note Consult Note Inpatient Admission & Transfer Planning Patient: Vashti Steve Date of Consult: 01/06/2025 Consulting Service: Orthopedics / Plastics Coordination Referring Physician: Dr. Rico Reason for Consult: Evaluation and facilitation of inpatient admission with subsequent transfer for right knee skin flap procedure. --- History of Present Illness Ms. Vashti Steve is a 74-year-old female with a history of right distal femur ORIF performed on 11/08/[address] Rico. Post-operatively, she had been residing at a residential facility (SNF) before returning to [facility] ([facility]) for follow-up visits. At her 4 week follow-up from initial surgery on 12/10/2024, negrita were removed; however, she was noted to have a partial wound dehiscence near the incision site with superficial tissue loss/Necrotic tissue. A plastic surgery referral was recommended to [facility] for possible flap coverage, and wet-to-dry dressings were initiated. Two weeks later, the patient presented to [facility] as wound ulceration was not healing/imporving and SNF was still not able to refer patient to plastics for possible skin flap surgery, patient was admitted via [facility] ER. On admission, she underwent operative debridement, washout, and placement of Integra graft by Dr. Le, with a negative-pressure wound therapy (NARESH) dressing applied and an extension knee brace placed. Despite nutritional optimization, wound care, and intravenous antibiotics, the ulceration persisted for approximately 45 weeks post-graft, particularly along the edges. Wound culture collected during surgery were negative for any infection to hardware/prosthetic joint. On 01/05/2025, Dr. Rico saw patient in Clinic again(SNF brought patient to Clinic on [facility]) . The decision to admit was made to ensure patient safety, prevent further deterioration, and secure timely specialty intervention, as delays in care may adversely affect prognosis. SNF limitations in arranging immediate plastic surgery consultation necessitated hospital-level coordination. All decisions were made in the patients best interest and expedite care/skin graft flap plastic surgery. Today at followup, Naresh dressing is in place right knee. pt is alert , Oriented in good spirits during my interview. No worsening of pain, discharge, soiling of dressing, fever, chills other pains reported by patient. Pt continues to have good appetite. Past Medical History Status post right distal femur ORIF (11/08/2024) Chronic wound dehiscence post-orthopedic surgery Osteoporosis Hypertension --- Past Surgical History Right distal femur ORIF 11/08/2024 Social History Currently Resides in residential facility; previously independent in activities of daily living prior to injury. No current tobacco or alcohol use reported. --- Review of Systems General: No fevers or chills reported. Cardiovascular: No chest pain or palpitations. Respiratory: No dyspnea or cough. Musculoskeletal: Persistent right knee wound; unable to bear full weight. Skin: Right knee wound with persistent dehiscence with quater size necrotic ulceration despite graft placement. --- Physical Exam General: Elderly female, alert and oriented, in no acute distress. Right Knee: NARESH dressing in place over anterior incision site. Extension knee brace in situ. Surrounding skin intact with mild erythema; no purulence noted. Distal neurovascular status intact. Other Systems: Unremarkable. --- Laboratory / Imaging Negative wound culture from sample obtained during washout/graft procedure --- Assessment 74-year-old female with a chronic, non-healing postoperative wound quarer size with Necrotic ulceration over the right distal femur incision site following ORIF, refractory to debridement, grafting, and prolonged wound care. Candidate for definitive plastic surgery coverage (skin flap). Requires inpatient management for wound care optimization and coordination of transfer. --- Plan 1. Admission: Admit to [facility] for continued wound care, pain management, and medical optimization. 2. Wound Care: Maintain NARESH dressing; extension knee brace to remain in place. Continue daily wound assessments. 3. Antibiotics: Continue current regimen; adjust based on infectious disease input (cultures negative from previous collection). 4. Nutrition: Continue high-protein diet with supplementation; nutrition consult to continue. 5. Pain Control: Optimize multimodal regimen; avoid excessive sedation. 6. Plastics Coordination: Arrange transfer to [facility] for evaluation and definitive right knee skin flap procedure by Dr. Shepherd. 7. Physical Therapy: Initiate PT for weight-bearing as tolerated (WBAT) daily while in extension brace. 8. Family Communication: Update patient and family regarding need for transfer and expected surgical plan. 9. Monitoring: Daily vitals, wound checks, and review of lab trends. 10. Clearance: Obtain pre-transfer medical clearance and necessary imaging/records for receiving facility. Please contact Orthopedic if any difficulty or inability to transfer patient in next 24 to 48 hrs. Plan discussed with: Patient, Other (bedside nurse) Visit Coding Surgery Date of Service if different f: Jan 07, 2025 Billing Provider: NIKI HALL Surgery Visit Codes: [id number] - INP CONSULT <55 MIN NIKI HALL Jan 07, 2025 18:37
[2025-01-07] MEDS: ONDANSETRON HCL 4 MG/2 ML VIAL IV PRN (19:56)
[2025-01-08] VITALS (11 sets, daily range): BP systolic 107–116; BP diastolic 55–70; PULSE 82–96; RESP 16–20; TEMP 97.5–98.1; O2SAT 90–95
--- NOTE | 2025-01-08 11:01 | DVHPN2 ---
Reviewed: Care Plan, H&P, Labs, Medications, Previous Orders Changes from previous H/P or p: No Changes Objective Vitals Vital Signs Date Time Temp Pulse Resp B/P (MAP) Pulse Ox O2 Delivery O2 Flow Rate FiO2 01/08/25 09:15 116/70 01/08/25 09:00 98.0 94 20 94 98.0 01/08/25 06:55 Room Air* 0 21 Intake/Output Intake and Output 01/08/25 07:00 Intake Total 1150 ml Balance 1150 ml Intake Oral 1150 ml # Voids 5 Medications Current Medications Medications Dose Ordered Sig/Tex Route Start Time Stop Time Status Last Admin Dose Admin Acetaminophen/ Hydrocodone Bitart 1 tab Q4HP PRN PO 01/06/25 22:30 01/08/25 05:27 1 TAB Ondansetron HCl 4 mg Q4HP PRN IV 01/06/25 22:30 01/07/25 19:56 4 MG Acetaminophen 650 mg Q6HP PRN PO 01/06/25 22:30 Albuterol 2.5 mg Q6HPRN PRN NEB 01/06/25 22:30 Levothyroxine Sodium 125 mcg QAM@0600 PO 01/07/25 06:00 01/08/25 05:26 125 MCG Lisinopril 20 mg DAILY PO 01/07/25 10:00 01/08/25 09:15 20 MG Apixaban 5 mg BID PO 01/07/25 10:00 01/08/25 09:15 5 MG Laboratory Results Laboratory Tests 01/07/25 05:43 Labs and/or images reviewed: Labs reviewed by me, Image(s) reviewed by me Assessment/Plan Assessment/Plan Status post right distal femur ORIF (11/08/2024) Chronic wound dehiscence post-orthopedic surgery: Orthopedic recommended transfer to [facility] for right knee skin flap procedure Osteoporosis History of DVT on Eliquis Hypothyroidism: Synthroid Hypertension Plan discussed with: Patient, Son Date of Service: Jan 08, 2025 Billing Provider: PIYUSH JESUS MD Common Visit Codes: [id number] INP/OBS CARE(HIGH) PIYUSH JESUS MD Jan 08, 2025 11:01
--- NOTE | 2025-01-08 11:07 | DVHDS2 ---
Discharge Summary Date of Admission Jan 06, 2025 at 18:03 Date of Discharge: Jan 08, 2025 Admitting Diagnosis Nonhealing right knee wound Wounds: Right knee wound Labs/Diagnostic Data: Laboratory Results Test 01/07/25 09:00 01/07/25 05:43 Prothrombin Time 12.7 sec (9.3-11.8) Prothrombin Time INR 1.22 (0.9-1.15) Activated Partial Thromboplast Time 32.5 SEC (24.5-34.5) White Blood Count 6.8 10^3/uL (4.4-10.8) Red Blood Count 4.02 10^6/uL (4.0-5.20) Hemoglobin 10.9 g/dL (12.2-16.2) Hematocrit 33.2 % (36.0-46.0) Mean Corpuscular Volume 82.4 fL (80.0-100.0) Mean Corpuscular Hemoglobin 27.2 pg (28.0-32.0) Mean Corpuscular Hemoglobin Concent 33.0 g/dL (32.0-36.0) Red Cell Distribution Width 17.8 % (11.8-14.3) Platelet Count 457 10^3/uL (140-450) Mean Platelet Volume 7.0 fL (6.9-10.8) Neutrophils (%) (Auto) 66.3 % (37.0-80.0) Lymphocytes (%) (Auto) 19.6 % (10.0-50.0) Monocytes (%) (Auto) 8.6 % (0.0-12.0) Eosinophils (%) (Auto) 3.3 % (0.0-7.0) Basophils (%) (Auto) 2.2 % (0.0-2.0) Neutrophils # (Auto) 4.5 10 ^3/uL (1.6-8.6) Lymphocytes # (Auto) 1.3 10 ^3/uL (0.4-5.4) Monocytes # (Auto) 0.6 10 ^3/uL (0-1.3) Eosinophils # (Auto) 0.2 10 ^3/uL (0-0.8) Basophils # (Auto) 0.1 10 ^3/uL (0-0.2) Nucleated Red Blood Cells 0.1 % Sodium Level 141 mmol/L (136-145) Potassium Level 3.6 mmol/L (3.5-5.1) Chloride Level 103 mmol/L (98-107) Carbon Dioxide Level 26 mmol/L (20-31) Anion Gap 12 (5-15) Blood Urea Nitrogen 14 mg/dL (9-23) Creatinine 0.63 mg/dL (0.550-1.02) Glomerular Filtration Rate Calc 94 mL/min (>90) BUN/Creatinine Ratio 22.2 (10.0-20.0) Serum Glucose 86 mg/dL (74-106) Calcium Level 8.6 mg/dL (8.7-10.4) Other Laboratory Tests 01/07/25 05:43 Brief Hx & Hospital Course: Patient had a right distal femur surgery ORIF on 11/08/2024 history of osteoporosis hypotension hypothyroidism DVT on Eliquis patient developed nonhealing wound over the frontal of the right knee. Seen by orthopedic recommended transfer to [facility] for right knee skin flap orders placed. Consults/Reason for consult Orthopedic Operations or Procedures None Condition at Discharge: Fair Final Diagnosis/Problems List Status post right distal femur ORIF (11/08/2024) Chronic wound dehiscence post-orthopedic surgery: Orthopedic recommended transfer [place] [facility] for right knee skin flap procedure Osteoporosis History of DVT on Eliquis Hypothyroidism: Synthroid Hypertension Discharge Disposition: Acute Care Facility Discharge Instruct/Medications Diet: Cardiac 2g Na,low cholest Activity: Light activity Follow Up/Referral: per receiving hospital Medications: see list Scheduled Acetaminophen (Tylenol), 650 MG WA BID, (Reported) Alendronate Sodium (Alendronate Sodium), 70 MG PO Q7D, (Reported) Apixaban Base (Eliquis), 10 MG PO BID, (Reported) Hydrochlorothiazide (Hydrochlorothiazide), 1 TAB PO DAILY, (Reported) Hydrocortisone Base (Hydrocortisone), 5 MG PO BID, (Reported) Levothyroxine Sodium (Levothyroxine Sodium), 125 MCG PO QAM, (Reported) Lisinopril (Lisinopril), 20 MG PO DAILY, (Reported) Scheduled PRN Albuterol Sulfate (Albuterol Sulfate Hfa), 108 MCG IN PRN PRN for SHORTNESS OF BREATH, (Reported) Hydrocodone-Acetaminophen (Hydrocodone/Acetaminophen 10-325 mg), 1 TAB PO BID PRN for PAIN SCALE 7 THRU 10, (Reported) 39 (Time taken for discharge summary 39 minutes) Discharge Statement: "Patient was advised to return to the ER or call 911 if any headaches, dizziness, shortness of breath, chest pain, abdominal pain, bleeding, fevers, or worsening of medical condition. Patient was counseled about treatment plan, medications, possible side effects, patientverbalized understanding. All questions were answered to the best of my ability. This discharge took greater then 30 minutes in planning, reviewing documentation, counseling the patient, and discussing with other team members." ASSESSMENT ASSESSMENT Hospital Course No change Assessment Status post right distal femur ORIF (11/08/2024) Chronic wound dehiscence post-orthopedic surgery: Orthopedic recommended transfer to [facility] for right knee skin flap procedure Osteoporosis History of DVT on Eliquis Hypothyroidism: Synthroid Hypertension Date of Service: Jan 08, 2025 Billing Provider: PIYUSH JESUS MD Common Visit Codes: [id number] INP/OBS CARE(HIGH) PIYUSH JESUS MD Jan 08, 2025 11:07
[2025-01-08] MEDS: MILK OF MAGNESIA 30ML SUSP PO ONE (11:37)
[2025-01-09] VITALS (10 sets, daily range): BP systolic 100–115; BP diastolic 54–93; PULSE 70–101; RESP 16–100; TEMP 97.7–98.4; O2SAT 90–98
[2025-01-09] MEDS: MILK OF MAGNESIA 30ML SUSP PO SCH (09:08)
--- NOTE | 2025-01-09 09:57 | DVHPN2 ---
Subjective Patient complaining of constipation. Reviewed: Care Plan, H&P, Labs, Medications, Previous Orders Changes from previous H/P or p: No Changes General: Per HPI Objective Vitals Vital Signs Date Time Temp Pulse Resp B/P (MAP) Pulse Ox O2 Delivery O2 Flow Rate FiO2 01/09/25 09:08 114/56 01/09/25 05:00 97.8 81 100 98 97.8 01/08/25 20:00 Room Air* 0 21 Intake/Output Intake and Output 01/09/25 07:00 Intake Total 1140 ml Output Total 600 ml Balance 540 ml Intake Oral 1140 ml Output Urine Total 600 ml General Appearance: Alert, Oriented X3, Cooperative, mild distress HEENT: Atraumatic, PERRLA Cardiovascular: Normal S1, Normal S2 Abdomen: Normal bowel sounds, Soft, No tenderness, No hepatospenomegaly, No masses Extremities: Other (Dressing dry and intact to right knee) Psych/Mental Status: Mental status NL Medications Current Medications Medications Dose Ordered Sig/Tex Route Start Time Stop Time Status Last Admin Dose Admin Acetaminophen/ Hydrocodone Bitart 1 tab Q4HP PRN PO 01/06/25 22:30 01/09/25 09:53 1 TAB Ondansetron HCl 4 mg Q4HP PRN IV 01/06/25 22:30 01/08/25 16:27 4 MG Acetaminophen 650 mg Q6HP PRN PO 01/06/25 22:30 Albuterol 2.5 mg Q6HPRN PRN NEB 01/06/25 22:30 Levothyroxine Sodium 125 mcg QAM@0600 PO 01/07/25 06:00 01/09/25 05:28 125 MCG Lisinopril 20 mg DAILY PO 01/07/25 10:00 01/08/25 09:15 20 MG Apixaban 5 mg BID PO 01/07/25 10:00 01/08/25 21:36 5 MG Magnesium Hydroxide 30 ml DAILY PO 01/09/25 10:00 Laboratory Results Laboratory Tests 01/07/25 05:43 Labs and/or images reviewed: Labs reviewed by me, Image(s) reviewed by me Assessment/Plan Assessment/Plan Impression: -status post right knee arthroplasty, with near P I&D. Now requiring skin flap -primary hypertension -constipation -obesity Plan: -physical therapy -bowel regimen -out of bed as tolerated -transferred to [facility] once bed is available for plastic surgery Total time spent with patient discussing and formulating plan of care: 35 minutes. This medical document was created using an electronic medical record system with [employer] dictation system. Although this document has been carefully reviewed, there may still be some phonetic and typographical errors. These areas are purely typographical due to imperfections of the software programs, and do not reflect any compromise in the patient's medical care. Plan discussed with: Patient, Other (RN) My Orders Orders - GIGI CRESPO NP Procedure Category Date Status Time Polyethylene Glycol PHA 01/09/25 Verified 17g Powder (Miralax 10:00 Date of Service: Jan 09, 2025 Billing Provider: GIGI CRESPO NP Common Visit Codes: [id number] INP/OBS CARE(HIGH) GIGI CRESPO NP Jan 09, 2025 09:57
[2025-01-09] MEDS: POLYETHYLENE GLYCOL 17 GM PWDR PO SCH (10:29)
[2025-01-09] MEDS: ONDANSETRON ODT 4 MG TAB PO PRN (18:03)
[2025-01-09] MEDS ORDERED: LACTULOSE 20Gm/30ML SOLN PO PRN (23:15)
[2025-01-10] VITALS (9 sets, daily range): BP systolic 110–141; BP diastolic 60–86; PULSE 72–97; RESP 17–19; TEMP 97–98.6; O2SAT 93–100
--- NOTE | 2025-01-10 08:26 | DVHPN2 ---
Reviewed: Care Plan, H&P, Labs, Medications, Previous Orders Changes from previous H/P or p: No Changes General: Per HPI Objective Vitals Vital Signs Date Time Temp Pulse Resp B/P (MAP) Pulse Ox O2 Delivery O2 Flow Rate FiO2 01/10/25 05:00 98.6 72 18 115/64 (81) 99 98.6 01/09/25 20:00 Room Air* 0 21 Intake/Output Intake and Output 01/10/25 07:00 Intake Total 1400 ml Balance 1400 ml Intake Oral 1400 ml # Voids 5 General Appearance: Alert, Oriented X3, Cooperative, mild distress HEENT: Atraumatic, PERRLA Cardiovascular: Normal S1, Normal S2 Abdomen: Normal bowel sounds, Soft, No tenderness, No hepatospenomegaly, No masses Extremities: Other (Dressing dry and intact to right knee) Psych/Mental Status: Mental status NL Medications Current Medications Medications Dose Ordered Sig/Tex Route Start Time Stop Time Status Last Admin Dose Admin Acetaminophen/ Hydrocodone Bitart 1 tab Q4HP PRN PO 01/06/25 22:30 01/09/25 21:06 1 TAB Acetaminophen 650 mg Q6HP PRN PO 01/06/25 22:30 Albuterol 2.5 mg Q6HPRN PRN NEB 01/06/25 22:30 Levothyroxine Sodium 125 mcg QAM@0600 PO 01/07/25 06:00 01/10/25 05:56 125 MCG Lisinopril 20 mg DAILY PO 01/07/25 10:00 01/08/25 09:15 20 MG Apixaban 5 mg BID PO 01/07/25 10:00 01/09/25 21:06 5 MG Magnesium Hydroxide 30 ml DAILY PO 01/09/25 10:00 Polyethylene Glycol 17 gm DAILY PO 01/09/25 10:00 01/09/25 10:29 17 GM Ondansetron HCl 4 mg Q4HP PRN PO 01/09/25 17:30 01/09/25 18:03 4 MG Lactulose 30 ml BIDPRN PRN PO 01/09/25 23:15 Laboratory Results Laboratory Tests 01/07/25 05:43 Labs and/or images reviewed: Labs reviewed by me, Image(s) reviewed by me Assessment/Plan Assessment/Plan Status post right distal femur ORIF (11/08/2024) Chronic wound dehiscence post-orthopedic surgery: Orthopedic recommended transfer to higher level of care for right knee skin flap procedure Osteoporosis History of DVT on Eliquis Hypothyroidism: Synthroid Hypertension Constipation: Glycerin suppository adult Fleet enema, patient has been using [place] for last five years and does not want to discontinue Right arm pain at the IV site, venous ultrasound rule out DVT animal services officer working with the patient's insurance and HMO for authorization and transfer Plan discussed with: Patient Date of Service: Jan 10, 2025 Billing Provider: PIYUSH JESUS MD Common Visit Codes: [id number] INP/OBS CARE(HIGH) PIYUSH JESUS MD Jan 10, 2025 08:26
[2025-01-10] MEDS: GLYCERIN ADULT RECTAL SUPP PR ONE (08:30)
[2025-01-10] MEDS: FLEET ENEMA(ADULT) 135 ML PR ONE (08:30)
--- NOTE | 2025-01-10 11:52 | DVH ---
CLINICAL HISTORY: r/o dvt TECHNIQUE: Color and duplex doppler imagine of the right upper extremity veins and right subclavian v ein was performed. Vessel compression if possible was also performed. COMPARISON: None FINDINGS: The right internal jugular, axillary, basilic, cephalic, radial, ulnar, and paired brachial veins are patent and demonstrate normal compressibility and flow. The right subclavian is patent. IMPRESSION: NO SONOGRAPHIC EVIDENCE FOR DEEP VENOUS THROMBOSIS IN THE RIGHT UPPER EXTREMITY VEINS.
[2025-01-11] VITALS (7 sets, daily range): BP systolic 101–126; BP diastolic 61–69; PULSE 81–111; RESP 16–20; TEMP 98–98.8; O2SAT 18–97
[2025-01-11] MEDS: ACETAMINOPHEN 325 MG TAB PO PRN (06:04)
--- NOTE | 2025-01-11 11:06 | DVHPN2 ---
Reviewed: Care Plan, H&P, Labs, Medications, Previous Orders Changes from previous H/P or p: No Changes General: Per HPI Objective Vitals Vital Signs Date Time Temp Pulse Resp B/P (MAP) Pulse Ox O2 Delivery O2 Flow Rate FiO2 01/11/25 10:15 95 Room Air 0.0 01/11/25 10:15 21 01/11/25 09:03 108/61 01/11/25 09:00 98.1 102 16 98.1 Intake/Output Intake and Output 01/11/25 07:00 Intake Total 400 ml Output Total 700 ml Balance -300 ml Intake Oral 400 ml Output Urine Total 700 ml # Voids 2 # Bowel Movements 4 General Appearance: Alert, Oriented X3, Cooperative, mild distress HEENT: Atraumatic, PERRLA Cardiovascular: Normal S1, Normal S2 Abdomen: Normal bowel sounds, Soft, No tenderness, No hepatospenomegaly, No masses Extremities: Other (Dressing dry and intact to right knee) Psych/Mental Status: Mental status NL Medications Current Medications Medications Dose Ordered Sig/Tex Route Start Time Stop Time Status Last Admin Dose Admin Acetaminophen 650 mg Q6HP PRN PO 01/06/25 22:30 01/11/25 06:04 650 MG Albuterol 2.5 mg Q6HPRN PRN NEB 01/06/25 22:30 Levothyroxine Sodium 125 mcg QAM@0600 PO 01/07/25 06:00 01/11/25 05:46 125 MCG Lisinopril 20 mg DAILY PO 01/07/25 10:00 01/11/25 09:03 20 MG Apixaban 5 mg BID PO 01/07/25 10:00 01/11/25 09:03 5 MG Magnesium Hydroxide 30 ml DAILY PO 01/09/25 10:00 01/10/25 11:08 30 ML Polyethylene Glycol 17 gm DAILY PO 01/09/25 10:00 01/10/25 17:39 17 GM Ondansetron HCl 4 mg Q4HP PRN PO 01/09/25 17:30 01/10/25 11:08 4 MG Lactulose 30 ml BIDPRN PRN PO 01/09/25 23:15 Tramadol HCl 50 mg Q6HP PRN PO 01/10/25 11:30 01/10/25 17:38 50 MG Diphenhydramine HCl 25 mg Q8HP PRN PO 01/11/25 09:45 01/11/25 09:50 25 MG Laboratory Results Laboratory Tests 01/07/25 05:43 Labs and/or images reviewed: Labs reviewed by me, Image(s) reviewed by me Assessment/Plan Assessment/Plan Status post right distal femur ORIF (11/08/2024) Chronic wound dehiscence post-orthopedic surgery: Orthopedic recommended transfer to higher level of care for right knee skin flap procedure Osteoporosis History of DVT on Eliquis Hypothyroidism: Synthroid Hypertension Constipation: Glycerin suppository adult Fleet enema, patient has been using [place] for last five years and does not want to discontinue Right arm pain at the IV site, venous ultrasound rule out DVT student services director working with the patient's insurance and HMO for authorization and transfer [id number] and RN Monica at bedside Plan discussed with: Patient My Orders Orders - PIYUSH JESUS MD Procedure Category Date Status Time Tramadol Hcl (Ultram) PHA 01/10/25 In Process 11:30 Cleanse Wound With MATILDA 01/10/25 In Process Wound Clean 18:39 Diphenhdramine PHA 01/11/25 In Process Capsule (Benadryl 09:45 Date of Service: Jan 11, 2025 Billing Provider: PIYUSH JESUS MD Common Visit Codes: [id number] INP/OBS CARE(HIGH) PIYUSH JESUS MD Jan 11, 2025 11:06
[2025-01-12] VITALS (8 sets, daily range): BP systolic 106–134; BP diastolic 65–74; PULSE 91–97; RESP 16–20; TEMP 97.7–98.1; O2SAT 93–100
--- NOTE | 2025-01-12 06:45 | DVHPN2 ---
Progress Note Date Seen: Jan 11, 2025 Has the PT tested + for MRSA If YES, has PT been informed?: No Medical Necessity Reason Pt with a Central, PICC or Fol: No Subjective Patient reports: No new complaints Objective vital signs Vital Sign Date Time Temp Pulse Resp B/P (MAP) Pulse Ox O2 Delivery O2 Flow Rate FiO2 01/12/25 05:00 98.1 92 18 130/74 (92) 100 98.1 01/11/25 20:00 Room Air* 0 21 Total Intake and Output 01/11/25 01/11/25 01/12/25 15:00 23:00 07:00 Intake Total 500 ml Balance 500 ml medications Current Medications Medications Dose Ordered Sig/Tex Route Start Time Stop Time Status Last Admin Dose Admin Acetaminophen 650 mg Q6HP PRN PO 01/06/25 22:30 01/11/25 06:04 650 MG Levothyroxine Sodium 125 mcg QAM@0600 PO 01/07/25 06:00 01/12/25 05:42 125 MCG Lisinopril 20 mg DAILY PO 01/07/25 10:00 01/11/25 09:03 20 MG Apixaban 5 mg BID PO 01/07/25 10:00 01/12/25 00:32 5 MG Magnesium Hydroxide 30 ml DAILY PO 01/09/25 10:00 01/10/25 11:08 30 ML Polyethylene Glycol 17 gm DAILY PO 01/09/25 10:00 01/10/25 17:39 17 GM Ondansetron HCl 4 mg Q4HP PRN PO 01/09/25 17:30 01/10/25 11:08 4 MG Lactulose 30 ml BIDPRN PRN PO 01/09/25 23:15 Tramadol HCl 50 mg Q6HP PRN PO 01/10/25 11:30 01/10/25 17:38 50 MG Diphenhydramine HCl 25 mg Q8HP PRN PO 01/11/25 09:45 01/12/25 02:03 25 MG Examination: GENERAL:Normal, MSK:Abnormal laboratory and microbiology Laboratory Tests 01/07/25 05:43 Test 01/07/25 05:43 Range/Units Serum Glucose 86 74-106 mg/dL Problem List/Assessment/Plan Problem List/Assessment/Plan 74 yo F with hx of Right distal femur replacement with necessity of plastic surgery for poss flap 1. Accepting plastic physician Dr. Shepherd; accepting orthopedic surgeon Dr. Rico; hospitalist to hospitalist transfer to [facility] 2. WBAT with walker 3. PT 4. pain control 5. please transfer lauren Plan discussed with: Patient, Other Dietary Evaluation Review Comments: Pt would benefit from increased physical activity to support overall health and functional mobility. Wt management is desirable after her knee heals. Expected Outcomes/Goals: gradual wt loss MAI SQUIRES MD Jan 12, 2025 06:45
[2025-01-12 07:44] LABS: Hematocrit 35.5 % (36.0-46.0); Hemoglobin 11.2 g/dL (12.2-16.2); Mean Corpuscular Hemoglobin 26.6 pg (28.0-32.0); Mean Corpuscular Volume 84.1 fL (80.0-100.0); Nucleated Red Blood Cells % 0.1 %
[2025-01-12 08:19] LABS: Alanine Aminotransferase < 9 U/L (7-40); Alkaline Phosphatase 79 U/L (46-116); Anion Gap 12 (5-15); BUN/Creatinine Ratio 25.4 (10.0-20.0); Blood Urea Nitrogen 17 mg/dL (9-23); Calcium 8.4 mg/dL (8.7-10.4); Carbon Dioxide 26 mmol/L (20-31); Chloride 99 mmol/L (98-107); Glucose 80 mg/dL (74-106); Potassium 4.1 mmol/L (3.5-5.1); Sodium 137 mmol/L (136-145); Total Protein 5.4 g/dL (5.7-8.2)
[2025-01-12 08:21] LABS: Bilirubin, Total 1.0 mg/dL (0.2-1.0)
[2025-01-12 08:25] LABS: Albumin 2.9 g/dL (3.2-4.8)
--- NOTE | 2025-01-12 10:24 | DVHPN2 ---
Reviewed: Care Plan, H&P, Labs, Medications, Previous Orders Changes from previous H/P or p: No Changes General: Per HPI Objective Vitals Vital Signs Date Time Temp Pulse Resp B/P (MAP) Pulse Ox O2 Delivery O2 Flow Rate FiO2 01/12/25 09:59 121/72 01/12/25 09:00 98.1 91 18 95 98.1 01/12/25 08:00 Room Air* 0 21 Intake/Output Intake and Output 01/12/25 07:00 Intake Total 500 ml Balance 500 ml Intake Oral 500 ml # Voids 6 # Bowel Movements 4 General Appearance: Alert, Oriented X3, Cooperative, mild distress HEENT: Atraumatic, PERRLA Cardiovascular: Normal S1, Normal S2 Abdomen: Normal bowel sounds, Soft, No tenderness, No hepatospenomegaly, No masses Extremities: Other (Dressing dry and intact to right knee) Psych/Mental Status: Mental status NL Medications Current Medications Medications Dose Ordered Sig/Tex Route Start Time Stop Time Status Last Admin Dose Admin Acetaminophen 650 mg Q6HP PRN PO 01/06/25 22:30 01/12/25 09:58 650 MG Levothyroxine Sodium 125 mcg QAM@0600 PO 01/07/25 06:00 01/12/25 05:42 125 MCG Lisinopril 20 mg DAILY PO 01/07/25 10:00 01/12/25 09:59 20 MG Apixaban 5 mg BID PO 01/07/25 10:00 01/12/25 09:58 5 MG Magnesium Hydroxide 30 ml DAILY PO 01/09/25 10:00 01/10/25 11:08 30 ML Polyethylene Glycol 17 gm DAILY PO 01/09/25 10:00 01/10/25 17:39 17 GM Ondansetron HCl 4 mg Q4HP PRN PO 01/09/25 17:30 01/10/25 11:08 4 MG Lactulose 30 ml BIDPRN PRN PO 01/09/25 23:15 Tramadol HCl 50 mg Q6HP PRN PO 01/10/25 11:30 01/10/25 17:38 50 MG Diphenhydramine HCl 25 mg Q8HP PRN PO 01/11/25 09:45 01/12/25 02:03 25 MG Laboratory Results Laboratory Tests 01/12/25 06:33 Chemistry Test 01/12/25 06:33 Albumin 2.9 g/dL (3.2-4.8) L Calcium Level 8.4 mg/dL (8.7-10.4) L Total Protein 5.4 g/dL (5.7-8.2) L LFT Test 01/12/25 06:33 Alanine Aminotransferase (ALT) < 9 U/L (7-40) Alkaline Phosphatase 79 U/L (46-116) Aspartate Amino Transferase (AST) 15 U/L (13-40) Total Bilirubin 1.0 mg/dL (0.2-1.0) Labs and/or images reviewed: Labs reviewed by me, Image(s) reviewed by me Assessment/Plan Assessment/Plan Status post right distal femur ORIF (11/08/2024) Chronic wound dehiscence post-orthopedic surgery: Orthopedic recommended transfer to higher level of care for right knee skin flap procedure Osteoporosis History of DVT on Eliquis Hypothyroidism: Synthroid Hypertension Constipation: Glycerin suppository adult Fleet enema, patient has been using [place] for last five years and does not want to discontinue Right arm pain at the IV site, venous ultrasound rule out DVT environmental services project manager working with the patient's insurance and HMO for authorization and transfer [id number] and RN Monica at bedside Per Dr Le " Accepting plastic physician Dr. Shepherd; accepting orthopedic surgeon Dr. Rico; hospitalist to hospitalist transfer to [facility]" Social service consult placed Plan discussed with: Patient My Orders Orders - PIYUSH JESUS MD Procedure Category Date Status Time * Exterior Designer CONS 01/12/25 Transmitted Consult Date of Service: Jan 12, 2025 Billing Provider: PIYUSH JESUS MD Common Visit Codes: [id number] INP/OBS CARE(HIGH) PIYUSH JESUS MD Jan 12, 2025 10:24
[2025-01-13] VITALS (9 sets, daily range): BP systolic 106–132; BP diastolic 54–72; PULSE 86–96; RESP 17–20; TEMP 97.3–98.2; O2SAT 93–98
--- NOTE | 2025-01-13 11:16 | DVHPN2 ---
Reviewed: Care Plan, H&P, Labs, Medications, Previous Orders Changes from previous H/P or p: No Changes General: Per HPI Objective Vitals Vital Signs Date Time Temp Pulse Resp B/P (MAP) Pulse Ox O2 Delivery O2 Flow Rate FiO2 01/13/25 10:19 110/68 01/13/25 09:00 98.2 93 20 97 98.2 01/12/25 20:00 Room Air* 0 21 Intake/Output Intake and Output 01/13/25 07:00 Intake Total 900 ml Balance 900 ml Intake Oral 900 ml # Voids 7 # Bowel Movements 5 General Appearance: Alert, Oriented X3, Cooperative, mild distress HEENT: Atraumatic, PERRLA Cardiovascular: Normal S1, Normal S2 Abdomen: Normal bowel sounds, Soft, No tenderness, No hepatospenomegaly, No masses Extremities: Other (Dressing dry and intact to right knee) Psych/Mental Status: Mental status NL Medications Current Medications Medications Dose Ordered Sig/Tex Route Start Time Stop Time Status Last Admin Dose Admin Acetaminophen 650 mg Q6HP PRN PO 01/06/25 22:30 01/13/25 10:31 650 MG Levothyroxine Sodium 125 mcg QAM@0600 PO 01/07/25 06:00 01/13/25 05:15 125 MCG Lisinopril 20 mg DAILY PO 01/07/25 10:00 01/13/25 10:19 20 MG Apixaban 5 mg BID PO 01/07/25 10:00 01/13/25 10:18 5 MG Magnesium Hydroxide 30 ml DAILY PO 01/09/25 10:00 01/10/25 11:08 30 ML Polyethylene Glycol 17 gm DAILY PO 01/09/25 10:00 01/10/25 17:39 17 GM Ondansetron HCl 4 mg Q4HP PRN PO 01/09/25 17:30 01/10/25 11:08 4 MG Lactulose 30 ml BIDPRN PRN PO 01/09/25 23:15 Tramadol HCl 50 mg Q6HP PRN PO 01/10/25 11:30 01/10/25 17:38 50 MG Diphenhydramine HCl 25 mg Q8HP PRN PO 01/11/25 09:45 01/12/25 02:03 25 MG Laboratory Results Laboratory Tests 01/12/25 06:33 Labs and/or images reviewed: Labs reviewed by me, Image(s) reviewed by me Assessment/Plan Assessment/Plan Status post right distal femur ORIF (11/08/2024) Chronic wound dehiscence post-orthopedic surgery: Orthopedic recommended transfer to higher level of care for right knee skin flap procedure Osteoporosis History of DVT on Eliquis Hypothyroidism: Synthroid Hypertension Constipation: Glycerin suppository adult Fleet enema, patient has been using [place] for last five years and does not want to discontinue Right arm pain at the IV site, venous ultrasound rule out DVT imaging services director working with the patient's insurance and HMO for authorization and transfer [id number] and RN Monica at bedside Per Dr Le " Accepting plastic physician Dr. Shepherd; accepting orthopedic surgeon Dr. Rico; hospitalist to hospitalist transfer to [facility]" Social service consult placed Right hand wrist pain: X-ray right wrist and right hand Son at bedside advised him that the social staff worker working for authorization for transfer from insurance and HMO Plan discussed with: Patient Date of Service: Jan 13, 2025 Billing Provider: PIYUSH JESUS MD Common Visit Codes: [id number] INP/OBS CARE(HIGH) PIYUSH JESUS MD Jan 13, 2025 11:16
--- NOTE | 2025-01-13 19:58 | DVH ---
CLINICAL INDICATION: right wrist pain TECHNIQUE: 2 radiographic views of the right wrist were obtained. Comparison: None FINDINGS/IMPRESSION: Narrowing of the carpal radial/ ulnar joint space is seen chondrocalcinosis. Narrowing of the carpometacarpal joint of the thumb and index finger consistent with arthritic change s.
[2025-01-14 01:00] VITALS: BP 126/71; PULSE 89; RESP 18; TEMP 98; O2SAT 96
[2025-01-14 05:00] VITALS: BP 131/72; PULSE 89; RESP 17; TEMP 98.2; O2SAT 98
[2025-01-14 07:45] VITALS: PULSE 93; RESP 17; O2SAT 93
[2025-01-14 08:57] VITALS: BP 123/71; PULSE 84; RESP 17; TEMP 97.6; O2SAT 93
--- NOTE | 2025-01-14 11:59 | DVHPN2 ---
Reviewed: Care Plan, H&P, Labs, Medications, Previous Orders Changes from previous H/P or p: No Changes General: Per HPI Objective Vitals Vital Signs Date Time Temp Pulse Resp B/P (MAP) Pulse Ox O2 Delivery O2 Flow Rate FiO2 01/14/25 10:17 131/63 01/14/25 08:57 97.6 84 17 93 97.6 01/14/25 07:45 Room Air* 0 21 Intake/Output Intake and Output 01/14/25 07:00 Intake Total 700 ml Balance 700 ml Intake Oral 700 ml # Voids 3 General Appearance: Alert, Oriented X3, Cooperative, mild distress HEENT: Atraumatic, PERRLA Cardiovascular: Normal S1, Normal S2 Abdomen: Normal bowel sounds, Soft, No tenderness, No hepatospenomegaly, No masses Extremities: Other (Dressing dry and intact to right knee) Psych/Mental Status: Mental status NL Medications Current Medications Medications Dose Ordered Sig/Tex Route Start Time Stop Time Status Last Admin Dose Admin Acetaminophen 650 mg Q6HP PRN PO 01/06/25 22:30 01/14/25 06:30 650 MG Levothyroxine Sodium 125 mcg QAM@0600 PO 01/07/25 06:00 01/14/25 05:57 125 MCG Lisinopril 20 mg DAILY PO 01/07/25 10:00 01/14/25 10:17 20 MG Apixaban 5 mg BID PO 01/07/25 10:00 01/14/25 10:17 5 MG Magnesium Hydroxide 30 ml DAILY PO 01/09/25 10:00 01/10/25 11:08 30 ML Polyethylene Glycol 17 gm DAILY PO 01/09/25 10:00 01/10/25 17:39 17 GM Ondansetron HCl 4 mg Q4HP PRN PO 01/09/25 17:30 01/10/25 11:08 4 MG Lactulose 30 ml BIDPRN PRN PO 01/09/25 23:15 Tramadol HCl 50 mg Q6HP PRN PO 01/10/25 11:30 01/10/25 17:38 50 MG Diphenhydramine HCl 25 mg Q8HP PRN PO 01/11/25 09:45 01/12/25 02:03 25 MG Laboratory Results Laboratory Tests 01/12/25 06:33 Labs and/or images reviewed: Labs reviewed by me, Image(s) reviewed by me Assessment/Plan Assessment/Plan Status post right distal femur ORIF (11/08/2024) Chronic wound dehiscence post-orthopedic surgery: Orthopedic recommended transfer to higher level of care for right knee skin flap procedure Osteoporosis History of DVT on Eliquis Hypothyroidism: Synthroid Hypertension Constipation: Glycerin suppository adult Fleet enema, patient has been using [place] for last five years and does not want to discontinue Right arm pain at the IV site, venous ultrasound rule out DVT patient services representative working with the patient's insurance and HMO for authorization and transfer [id number] and WANDA Anderson at bedside Per Dr Le " Accepting plastic physician Dr. Shepherd; accepting orthopedic surgeon Dr. Rico; hospitalist to hospitalist transfer to [facility]" Social service consult placed Right hand wrist pain: X-ray right wrist and right hand shows DJD changes no fracture Per RN Moe, Ortho PA Carissa Sosa advised the patient to be discharged home and family will transfer her to [facility] Plan discussed with: Patient My Orders Orders - PIYUSH JESUS MD Procedure Category Date Status Time R Wrist 2 View Xray XY 01/13/25 Resulted 16:27 Date of Service: Jan 14, 2025 Billing Provider: PIYUSH JESUS MD Common Visit Codes: [id number] INP/OBS CARE(HIGH) PIYUSH JESUS MD Jan 14, 2025 11:58
--- NOTE | 2025-01-14 12:44 | DVHPN2 ---
Progress Note Progress Note Progress Note / Discharge Summary --- Subjective Ms. Vashti Steve is a 74-year-old female with history of right distal femur ORIF on 11/08/2024, complicated by chronic wound dehiscence and necrotic ulceration over the anterior right knee incision site. She has been under inpatient care at [facility] for wound management, nutritional optimization, and coordination for plastic surgery evaluation. Today she reports no new complaints . No fevers, chills, chest pain, dyspnea, or other systemic symptoms. Appetite remains good. --- Objective General: Elderly female, alert, oriented 3, in no acute distress. Right Knee: NARESH dressing in place over anterior incision site. Dressing changed today. Extension knee brace in situ. Surrounding skin intact with mild erythema; no purulence. Distal neurovascular status remains intact. Vital Signs: Stable. Afebrile. Other Systems: Unremarkable. --- Assessment 74-year-old female with non-healing postoperative wound dehiscence of right distal femur incision site following ORIF, refractory to grafting, antibiotics, and wound care. Necrotic tissue persists, requiring definitive soft tissue coverage. Patient has been accepted for transfer to [facility] for definitive management with plastic surgery skin flap procedure per Dr. Rico /Dr. Le and Dr. Shepherd plastic surgeon at [facility] plans on doing skin flap on Sunday the 16 January 2025. --- Plan / Disposition 1. Wound Care: Continue NARESH dressing in place until transfer. 2. Brace: Extension knee brace to remain in situ. 3. Pain Control: Continue multimodal regimen, avoid excessive sedation. 4. Nutrition: Maintain high-protein diet and supplementation until transfer. 5. Transfer: Discharge from [facility] inpatient service today. Patient to proceed directly to [facility] for admission under Orthopedic Surgery, with Plastics consultation for right knee skin flap cov erage. Transfer recommendation confirmed with Dr. Rico and Dr. White (Orthopedics). Dr. Shepherd (Plastics, [facility]) has accepted patient for operative management. 6. Family Communication: Family updated regarding transfer and surgical plan. 7. Condition on Discharge: Stable. Plan discussed with: Patient, Son (bedside Nurse) Visit Coding Surgery Date of Service if different f: Jan 14, 2025 Billing Provider: NIKI HALL Surgery Visit Codes: [id number] INP/OBS CARE(MOD) NIKI HALL Jan 14, 2025 12:44
[2025-01-14 13:00] VITALS: BP 127/68; PULSE 88; RESP 19; TEMP 97.8; O2SAT 96
[2025-01-14 13:42] VITALS: BP 127/68; PULSE 88; RESP 19; TEMP 36.4; O2SAT 96
== END 2025-01-14 15:20 | disposition short-term general hospital (02) | DRG 920 ==
LOC: EAST 18:03
PROVIDERS: ADMIT Family Medicine; ATTEND Family Medicine
DX: T81.31XA Disruption of external operation (surgical) wound, not elsewhere classified, initial encounter (principal); Z68.41 Body mass index [BMI] 40.0-44.9, adult; M81.0 Age-related osteoporosis without current pathological fracture; T81.89XA Other complications of procedures, not elsewhere classified, initial encounter; E03.9 Hypothyroidism, unspecified; I10 Essential (primary) hypertension; K59.00 Constipation, unspecified; Z86.718 Personal history of other venous thrombosis and embolism; Z88.8 Allergy status to other drugs, medicaments and biological substances; Z96.651 Presence of right artificial knee joint; Z79.899 Other long term (current) drug therapy; Y84.8 Other medical procedures as the cause of abnormal reaction of the patient, or of later complication, without mention of misadventure at the time of the procedure; Y92.89 Other specified places as the place of occurrence of the external cause; E66.01 Morbid (severe) obesity due to excess calories
CPT/HCPCS: 36415; 73100; 80048; 80053; 85025; 85610; 85730; 93971; 97110; 97116; 97163; 97530; G0378; J2405; Q0162